=== PATIENT | female | born 1950 | race Caucasian/White ===

== ENCOUNTER → 2020-09-27 16:26 | Outpatient (CLI) | payer MEDICARE, SELFPAY ==
--- NOTE | ~2020-09-27 | XR_ITS ---
XR_[id number]_[id number] 09/27/2020 16:39 Indication: Neck pain Procedure: 4 views cervical spine Comparison: No prior studies for comparison. Findings: Straightening of cervical lordosis. There is disc narrowing through C3-4, C4-5, C5-6 and C6 -7. There is moderate multilevel uncinate and facet hypertrophy. Odontoid process within normal limit s. No prevertebral soft tissue swelling. Impression: 1: Moderate-severe cervical spondylosis. Reviewed, dictated and finalized at location A. EL MAINTENANCE TECHNICIAN Impression: 1: Moderate-severe cervical spondylosis.
== END ==
PROVIDERS: PCP Internal Medicine; Visit Provider Internal Medicine
DX: M47.892 Other spondylosis, cervical region (principal)
CPT/HCPCS: 72040

== ENCOUNTER 2020-10-19 13:39 | Outpatient (CLI) | payer MEDICARE, SELFPAY ==
--- NOTE | ~2020-10-19 | MR_ITS ---
EXAMINATION: MR cervical spine wo con EXAM DATE: 10/19/2020 15:13 INDICATION: Neck pain. Facet arthropathy, cervical; foraminal stenosis of cervical spine. TECHNIQUE: Multi-sequential, multiplanar MR images of the cervical spine were obtained without contra st. Axial T2, axial T2 MERGE sequence. Sagittal T1, T2, T2 fat saturation images also obtained. Th ere is no prior study for comparison. FINDINGS: Mild cervicothoracic dextroscoliosis. There is moderate loss of the disc heights at C4-5, 5-6 and 6-7. There is 2 mm anterolisthesis C7 on T1. The spinal cord signal intensity and intrinsic m orphology is normal. Cervicomedullary junction is normal in appearance. There are no suspicious marro w signal abnormalities. Paraspinal soft tissue is unremarkable. Level by level evaluation: C2-C3: Disc does not extend beyond the endplate margin. Uncovertebral joint arthropathy: None. Facet joint arthropathy: Fused. Neural foraminal stenosis: No stenosis. Central canal stenosis: No stenosis. C3-C4: Disc does not extend beyond the endplate margin. Uncovertebral joint arthropathy: Mild bilateral. Facet joint arthropathy: Moderate bilateral. Neural foraminal stenosis: Mild to moderate left. Central canal stenosis: No stenosis. C4-C5: There is a minimal diffuse disc bulge. Uncovertebral joint arthropathy: Mild to moderate left, mild right. Facet joint arthropathy: Moderate bilateral. Neural foraminal stenosis: Mild left. Central canal stenosis: No stenosis. C5-C6: There is a mild diffuse disc bulge. Uncovertebral joint arthropathy: Moderate to severe left, mild to moderate right. Facet joint arthropathy: Mild to moderate bilateral. Neural foraminal stenosis: Moderate left, mild right. Central canal stenosis: Mild. C6-C7: There is a mild diffuse disc bulge. Uncovertebral joint arthropathy: Moderate to severe bilateral. Facet joint arthropathy: Mild to moderate bilateral. Neural foraminal stenosis: Moderate left, mild right. Central canal stenosis: Mild . C7-T1: There is a mild diffuse disc bulge. Uncovertebral joint arthropathy: Mild. Facet joint arthropathy: Mild to moderate bilateral. Neural foraminal stenosis: Mild left. Central canal stenosis: No stenosis. IMPRESSION: 1. Moderate cervical spondylosis. Reviewed, dictated and finalized at location A. WORKER
== END 2020-10-19 13:40 | disposition home or self-care (01) ==
PROVIDERS: PCP Internal Medicine
DX: M47.812 Spondylosis without myelopathy or radiculopathy, cervical region (principal); M48.02 Spinal stenosis, cervical region; M47.22 Other spondylosis with radiculopathy, cervical region
CPT/HCPCS: 72141

== ENCOUNTER 2021-09-29 10:35 | Outpatient (CLI) | payer MEDICARE, SELFPAY ==
--- NOTE | ~2021-09-29 | CT_ITS ---
EXAMINATION: CT cervical spine wo con DATE: 09/29/2021 10:52 INDICATION: Neck pain. Arthropathy of cervical spine. TECHNIQUE: Computed tomography (CT) of the cervical spine was performed without intravenous contrast. Automated exposure control and iterative reconstruction technique were employed. The dose-length pro duct was 181.68 mGy-cm. COMPARISON: Cervical spine MRI 10/19/2020 FINDINGS: There is 12 degrees dextroscoliosis of cervicothoracic spine. There is kyphosis of cervical spine. There is 2 mm anterolisthesis of C3 on C4, 2 mm retrolisthesis of C6 on C7, and 2 mm anteroli sthesis of C7 on T1. Vertebral body heights are normal. There is moderately decreased disc height at C3-C4, severely decreased disc height from C4-C5 through C6-C7, and mildly decreased disc height at C 7-T1. There is severe osteoarthritis of the facet joints at C1-C2. The following disc levels are spec ifically discussed: C2-C3: There is no uncovertebral joint osteoarthritis. There is ankylosis of the facet joints with mo derate right and mild left hypertrophy. There is no neural foraminal stenosis. There is no central ca nal stenosis. C3-C4: There is mild right and severe left uncovertebral joint osteoarthritis. There is severe bilate ral facet joint osteoarthritis. There is mild right and moderate left neural foraminal stenosis. Ther e is mild central canal stenosis. C4-C5: There is mild right and moderate left uncovertebral joint osteoarthritis. There is severe bila teral facet joint osteoarthritis. There is mild left neural foraminal stenosis. There is no central c anal stenosis. C5-C6: There is severe bilateral uncovertebral joint osteoarthritis. There is moderate right and violette re left facet joint osteoarthritis. There is mild bilateral neural foraminal stenosis. There is mild central canal stenosis. C6-C7: There is severe bilateral uncovertebral joint osteoarthritis. There is mild bilateral facet colin int osteoarthritis. There is mild right and moderate left neural foraminal stenosis. There is mild ce ntral canal stenosis. C7-T1: There is no uncovertebral joint osteoarthritis. There is severe bilateral facet joint osteoart hritis. There is mild bilateral neural foraminal stenosis. There is no central canal stenosis. IMPRESSION: 1. Severe cervical spondylosis, stable from 10/19/2020. 2. Cervicothoracic dextroscoliosis. Reviewed, dictated and finalized at location A. ADMINISTRATOR
== END 2021-09-29 10:36 | disposition home or self-care (01) ==
LOC: ANHIMG 10:37
PROVIDERS: PCP Internal Medicine; Visit Provider Neurological Surgery
DX: M46.92 Unspecified inflammatory spondylopathy, cervical region (principal); M47.812 Spondylosis without myelopathy or radiculopathy, cervical region; M47.813 Spondylosis without myelopathy or radiculopathy, cervicothoracic region; M48.03 Spinal stenosis, cervicothoracic region; M41.9 Scoliosis, unspecified
CPT/HCPCS: 72125

== ENCOUNTER → 2022-01-23 11:10 | Outpatient (CLI) | payer MEDICARE, SELFPAY ==
--- NOTE | ~2022-01-23 | XR_ITS ---
EXAM: XR shoulder RT min 2V HISTORY: M25.511 - Pain in right shoulder COMPARISON: None available FINDINGS: Osteopenia. Amorphous calcific density in the distal superior rotator cuff. Severe narrowi ng and moderate subchondral sclerosis and osteophytosis of the glenohumeral joint. Ovoid ossification projecting over and inferior joint recess. No fracture or dislocation. IMPRESSION: Severe right shoulder glenohumeral osteoarthritis. Large loose joint body in the inferior joint reces s. Calcific rotator cuff tendinitis. Reviewed, dictated and finalized at location K. IMPRESSION: Severe right shoulder glenohumeral osteoarthritis. Large loose joint body in th e inferior joint recess. Calcific rotator cuff tendinitis.
== END ==
PROVIDERS: PCP Internal Medicine; Visit Provider Internal Medicine
DX: M19.011 Primary osteoarthritis, right shoulder (principal)
CPT/HCPCS: 73030

== ENCOUNTER 2022-03-24 12:09 | Outpatient (CLI) | payer MEDICARE, SELFPAY ==
[2022-03-24 13:33] LABS: Vitamin D 25 Hydroxy 48.1 ng/mL
== END 2022-03-24 12:10 | disposition home or self-care (01) ==
LOC: ANHLAB 12:14
PROVIDERS: PCP Internal Medicine
DX: M85.80 Other specified disorders of bone density and structure, unspecified site (principal)
CPT/HCPCS: 36415; 82306

== ENCOUNTER 2025-07-16 12:58 | Outpatient (CLI) | payer MEDICARE, SELFPAY ==
--- NOTE | 2025-07-16 | ECHO_ITS ---
Patient Info Name: Shea Baires Age: 75 years : 1950 Gender: Female Ht: 66 in Wt: 145 lbs BSA: 1.76 m2 HR: 54 bpm BP: 130 / 79 mmHg Technical Quality: Good Exam Date: 07/16/2025 1:35 PM Patient Status: O Admit Date: 07/16/2025 Exam Type: CA echo doppler color flow Complete two-dimensional, color flow and Doppler transthoracic echocardiogram is performed. Right Of Way Appraiser: Ivette Castellon Attending Provider: Carrillo Martínez Summary 1. Complete two-dimensional, color flow and Doppler transthoracic echocardiogram is performed. 2. Left ventricular systolic function is normal, estimated at 60-65. 3. The left ventricular diastolic function is normal. 4. The aortic valve is probable trileaflet. 5. There is mild aortic valve sclerosis. 6. There is mild aortic valve regurgitation. 7. There is no aortic valve stenosis. 8. There is mild tricuspid valve regurgitation. 9. No pulmonary hypertension, estimated pulmonary arterial systolic pressure is 22 mmHg. Left Ventricle Left ventricular chamber dimension is normal. Left ventricular systolic function is normal, estimated at 60-65. There is mildly increased left ventricular wall thickness. Left ventricular septal wall motion is normal. The left ventricular diastolic function is normal. Right Ventricle Right ventricular chamber dimension is normal. Right ventricular systolic function is normal. Left Atria Left atrial chamber dimension is normal. Right Atria Right atrial chamber dimension is normal. Aortic Valve The aortic valve is probable trileaflet. There is mild aortic valve sclerosis. There is no aortic valve stenosis. There is mild aortic valve regurgitation. Pulmonic Valve The pulmonic valve is normal. There is no pulmonic valve stenosis. There is no pulmonic regurgitation. Mitral Valve The mitral valve has normal leaflets. There is no mitral valve stenosis. There is no mitral valve regurgitation. Tricuspid Valve The tricuspid valve leaflets are normal. There is no significant tricuspid valve stenosis. There is mild tricuspid valve regurgitation. No pulmonary hypertension, estimated pulmonary arterial systolic pressure is 22 mmHg. Pericardium/Pleural The pericardium appears normal. There is no pericardial effusion. Inferior Vena Cava Normal inferior vena cava with >50% collapse upon inspiration consistent with normal right atrial pressure, 5 mmHg. Aorta The aortic root size at the sinus of Valsalva is normal. The prox ascending aorta size is normal. Left Ventricular Outflow Tract Name Value Normal LVOT 2D LVOT Diameter 2.0 cm LVOT Doppler LVOT Peak Velocity 136 cm/s LVOT Peak Gradient 7 mmHg LVOT Mean Gradient 3 mmHg LVOT VTI 39 cm LVOT VTI/AV VTI Ratio 1.0 LVOT Stroke Volume 119 ml LVOT CO 7.1 l/min LVOT CI 4.1 l/min/m2 Pulmonic Valve Name Value Normal RVOT Doppler RVOT Peak Velocity 54 cm/s RVOT Peak Gradient 1 mmHg PV Doppler PV Peak Velocity 97 cm/s PV Peak Gradient 4 mmHg Mitral Valve Name Value Normal MV Diastolic Function MV E Peak Velocity 62 cm/s MV A Peak Velocity 73 cm/s MV E/A 0.8 MV Decel Time (PW) 186 ms MV Annular TDI MV E/e' (Septal) 6.2 MV E/e' (Lateral) 10.0 MV E/e' (Average) 8.1 Tricuspid Valve Name Value Normal TV Regurgitation Doppler TR Peak Velocity 203 cm/s TR Peak Gradient 17 mmHg Estimated PAP/RSVP RA Pressure 5 mmHg <=5 PA Systolic Pressure 22 mmHg <36 RV Systolic Pressure 22 mmHg <36 Aortic Valve Name Value Normal AV Doppler AV Peak Velocity 207 cm/s AV Peak Gradient 13 mmHg AV Mean Gradient 6 mmHg AV VTI 38 cm AV Area (Cont Eq VTI) 3.2 cm2 >=3.0 AV Area (Cont Eq Doroteo) 2.0 cm2 AV DI (Doroteo) 0.66 AV Regurgitation 2D LVOT Area 3.1 cm2 Ventricles Name Value Normal LV Dimensions 2D/MM IVS Diastolic Thickness (2D) 1.0 cm 0.6-1.0 LVID Diastole (2D) 3.2 cm 3.8-5.2 LVIW Diastolic Thickness (2D) 1.3 cm 0.6-0.9 LVID Systole (2D) 2.2 cm 2.2-3.5 LVOT Diameter 2.0 cm LV Mass (2D Cubed) 115.39 g 67.00-162.00 LV Mass Index (2D Cubed) 66 g/m2 43-95 Relative Wall Thickness (2D) 0.84 <=0.42 LV Fractional Shortening/Ejection Fraction 2D/MM LV Fractional Shortening (2D) 32 % 27-45 LV EF (2D Teichholz) 62 % LV Diastolic Volume (4C MOD) 90 ml LV EF (4C MOD) 70 % LV Diastolic Volume (2C MOD) 103 ml LV EF (2C MOD) 72 % LV Diastolic Volume (BP MOD) 99 ml 46-106 LV Diastolic Volume Index (BP MOD) 56 ml/m2 29-61 LV Systolic Volume (BP MOD) 31 ml 14-42 LV Systolic Volume Index (BP MOD) 18 ml/m2 8-24 LV EF (BP MOD) 69 % 54-74 LV Diastolic Length (4C) 8.5 cm LV Systolic Length (4C) 7.4 cm LV Stroke Volume (4C MOD) 63 ml Atria Name Value Normal LA Dimensions LA Volume (4C A-L) 29 ml LA Volume (BP A-L) 35 ml RA Dimensions RA Area (4C) 12.5 cm2 <=18.0 Report Signatures
--- OUTSIDE RECORDS SUMMARY | 2025-07-16 13:05 | XMS_ITS ---
Author Organization [facility] Address [address] [place] [address] Care Team Providers Care Automatic Vulcanizing Lead Operator Name Role Phone Ciro Ko MD Unavailable [phone] Carrillo Martínez MD Primary Care Provider Kassie STONE MD, Carlos M. Unavailable [phone] Jigar Fishman MD Unavailable Juan Ocampo Unavailable Elal Zhang MD Unavailable Christen Gonzalez MD PhD Unavailable Active Problems Problem Noted Date Diagnosed Date Encounter for subsequent [facility] wellness visit (AWV) in Medicare patient 05/07/2025 Major depressive disorder, single episode, moder ate 05/07/2025 Pre-op exam 11/05/2024 Numbness of arm 03/17/2024 Rheumatoid arteritis 12/31/2023 Depression, recurrent 12/31/2023 Hypercholesteremia 12/31/2023 Ductal carcinoma in situ of left breast 10/10/20 23 Ductal carcinoma in situ (DCIS) of left breast 1 12/02/2022 Cancer Staging:Pathologic stage from 11/22/2023:Stage Unknown(pTis (DCIS), pNX, cM0, G3, ER+, RI: Not Assessed, HER2: Not Assessed) - Signed by Edwardo Coyne MD on 01/14/2024 Encounter for medical examination to establish c are 06/25/2023 Assessment & Plan (06/25/2023 1:16 PM CDT): A(n) initial Medicare Annual Wellness Visit has been performed today. Shea Baires is not up to date on screening tests. She is in need of hepatitis c screening and Colon cancer screening- mammogram will be needed at the end of the month. She is not up to date on needed preventative vaccinations; She is in need of Influenza and Zoster. We discussed healthy lifestyle habits, educational material has been given. Medications reviewed, changes documented as per the medical record and discussed with patient along with risks vs benefits. Return in 6 months Hypertension 06/25/2023 Overview (06/25/2023): Hypertension Occipital neuralgia of right side 11/23/2021 Spondylosis of cervical joint without myelopathy 11/23/2021 Cervical radiculopathy 11/23/2021 Cervical spinal stenosis 11/23/2021 Mixed stress and urge urinary incontinence 01/21 Urgency of urination 01/21/2021 Hot flashes due to menopause 04/01/2016 Postmenopausal status 01/27/2016 Encounter for preventive health examination 09/14 Osteoporosis Current Treatment and Therapy Plans No current plan information found. Past Treatment and Therapy Plans No past plan information found. Radiation Treatments * Course [id number]_202302/11/2024 - 03/11/2024 Treatment Period Energy Fraction Dose Fractions Total Dose Plans Planned LEFT BREAST 02/11/2024 - 03/11/2024 570 5 / 2,850 Reference Points Delivered LT [id number] 02/11/2024 - 03/11/2024 2,850 Lifetime Dose Tracking * Chemical Lifetime Dose Automatic Entry Manual Entr y Fluoro Time 0.43 minutes 0.43 minutes 0 minutes Air kerma at the reference point (Ka,r) 2.615 mGy 2 .615 mGy 0 mGy
--- OUTSIDE RECORDS SUMMARY | 2025-07-16 13:05 | XMS_ITS | Encounter Summary ---
Author Organization [facility] Health Address [address] [place] [address] Care Team Providers Care Infrastructure Administrator Name Role Phone Arik INGRAM MD, Apolinar Unavailable [phone] Vicente Butts MD Unavailable [phone] Ciro Ko MD Primary Care Provider [phone] Donis Jackson DO Primary Care Provider [phone] Carrillo Martínez MD Primary Care Provider + [phone] Encounter Details Date Type Department Care Team (Late st Contact Info) Description 07/06/2021 [facility] Outpatient Visit EXTERNAL NON-[facility] DEPT Unknown, Provider Social History Tobacco Use Types Packs/Day Years Used Date Smoking Tobacco: Former Cigarettes Smokeless Tobacco: Never Alcohol Use Standard Drinks/Week Comments Yes 0 (1 standard drink = 0.6 oz pur e alcohol) SOCIALLY Comments No Sex and Gender Information Value Date Recorded Sex Assigned at Not on file 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 Answer Date of Assessment Author No 12/06/2015 10:09 AM Marily Monk RN * Is person blind or have serious difficulty seeing? Answer Date of Assessment Author No 12/06/2015 10:09 AM Marily Monk RN * Does person have serious difficulty walking/climbing stairs? Answer Date of Assessment Author No 12/06/2015 10:09 AM Marily Monk RN * Does person have difficulty dressing/bathing? Answer Date of Assessment Author No 12/06/2015 10:09 AM Marily Monk RN * Does person have difficulty doing errands alone? Answer Date of Assessment Author No 12/06/2015 10:09 AM Marily Monk RN documented as of this encounter Mental Status * Does person have difficulty concentrating/remembering/making decisions? Answer Entry Date Author No 12/06/2015 10:09 AM Marily Monk RN documented in this encounter Plan of Treatment Not on file documented as of this encounter Visit Diagnoses Not on filedocumented in this encounter Care Teams Infrastructure Administrator Relationship Specialty Start Date End Date Ciro Ko MD [address] [place] [address] PCP - General Internal Medicine 02/24/21 10/26/22 Donis Jackson DO [facility] [place] [address] PCP - General Family Medicine 10/27/22 12/11/23 Carrillo Martínez MD [address] [facility] [address] [place] [id number] PCP - General Family Medicine 12/12/23 [place] [address] [place] [address] Orthopedic Surgery 05/05/13 [place] [address] [place] [address] Physical Medicine and Rehabilitation 10/06/20 documented as of this encounter
--- OUTSIDE RECORDS SUMMARY | 2025-07-16 13:05 | XMS_ITS | Encounter Summary ---
Author Organization [facility] Health Address [address] [facility] [place] [address] Care Team Providers Care Fruit And Vegetable Inspector Name Role Phone Arik INGRAM MD, Apolinar Unavailable [phone] Vicente Butts MD Unavailable [phone] Ciro Ko MD Primary Care Provider [phone] Donis Jackson DO Primary Care Provider [phone] Carrillo Martínez MD Primary Care Provider + [phone] Encounter Details Date Type Department Care Team (Late st Contact Info) Description 04/13/2021 [facility] Outpatient Visit EXTERNAL NON-[facility] DEPT Unknown, Provider Social History Tobacco Use Types Packs/Day Years Used Date Smoking Tobacco: Former Cigarettes Smokeless Tobacco: Never Alcohol Use Standard Drinks/Week Comments Yes 0 (1 standard drink = 0.6 oz pur e alcohol) SOCIALLY Comments No Sex and Gender Information Value Date Recorded Sex Assigned at Not on file Legal Sex Female 6:39 AM PLANT SAFETY ENGINEER Gender Identity Female 03/30/2021 5:24 PM CDT Sexual Orientation Not on file Occupation Industry Job Start Date Job End Date RETIRED Not on file Not on file Not on file COVID-19 Exposure Response Date Recorded In the last month, have you been in contact with someone who was confirmed or suspected to have Coronavirus / COVID-19? No / Unsure 04/05/2021 11:30 AM CDT documented as of this encounter Functional Status [...] on filedocumented in this encounter Care Teams Fruit And Vegetable Inspector Relationship Specialty Start Date End Date Ciro Ko MD [address] [place] [address] PCP - General Internal Medicine 02/24/21 10/26/22 Donis Jackson DO [address] [place] [id number] PCP - General Family Medicine 10/27/22 12/11/23 Carrillo Martínez MD [address] [facility] [address] [place] [address] PCP - General Family Medicine 12/12/23 [place] [address] [address] [place] [address] Orthopedic Surgery 05/05/13 [place] [address] [place] [address] Physical Medicine and Rehabilitation 10/06/20 documented as of this encounter
--- OUTSIDE RECORDS SUMMARY | 2025-07-16 13:05 | XMS_ITS | Encounter Summary ---
Author Organization [facility] Address [address] [place] [address] Care Team Providers Care Marking Room Supervisor Name Role Phone Arik INGRAM MD, Apolinar Unavailable [phone] Vicente Butts MD Unavailable [phone] Ciro Ko MD Primary Care Provider + [phone] Dnois Jackson DO Primary Care Provider [phone] Carrillo Martínez MD Primary Care Provider + [phone] Encounter Details Date Type Department Care Team (Late st Contact Info) Description 08/05/2021 [facility] Outpatient Visit EXTERNAL NON-[facility] DEPT Unknown, Provider Social History Tobacco Use Types Packs/Day Years Used Date Smoking Tobacco: Former Cigarettes Smokeless Tobacco: Never Alcohol Use Standard Drinks/Week Comments Yes 0 (1 standard drink = 0.6 oz pur e alcohol) SOCIALLY Comments No Sex and Gender Information Value Date Recorded Sex Assigned at Not on file Legal Sex Female 6:39 AM LOCOMOTIVE INSPECTOR Gender Identity Female 03/30/2021 5:24 PM CDT [...] on filedocumented in this encounter Care Teams Marking Room Supervisor Relationship Specialty Start Date End Date Ciro Ko MD [address] [place] [address] PCP - General Internal Medicine 02/24/21 10/26/22 Donis Jackson DO [facility] [place] [address] PCP - General Family Medicine 10/27/22 12/11/23 Carrillo Martínez MD [address] [facility] [address] [place] [phone] PCP - General Family Medicine 12/12/23 [place] [address] [place] [address] Orthopedic Surgery 05/05/13 [place] [address] [place] [address] Physical Medicine and Rehabilitation 10/06/20 documented as of this encounter
--- OUTSIDE RECORDS SUMMARY | 2025-07-16 13:05 | XMS_ITS | Encounter Summary ---
Author Organization [facility] Health Address [address] [facility] [place] [address] Care Team Providers Care Security Messenger Name Role Phone Arik INGRAM MD, Apolinar Unavailable [phone] Vicente Butts MD Unavailable [phone] Ciro Ko MD Primary Care Provider + [phone] Donis Jackson DO Primary Care Provider [phone] Carrillo Martínez MD Primary Care Provider + [phone] Encounter Details Date Type Department Care Team (Late st Contact Info) Description 05/31/2021 [facility] Outpatient Visit EXTERNAL NON-[facility] DEPT Unknown, Provider Social History Tobacco Use Types Packs/Day Years Used Date Smoking Tobacco: Former Cigarettes Smokeless Tobacco: Never Alcohol Use Standard Drinks/Week Comments Yes 0 (1 standard drink = 0.6 oz pur e alcohol) SOCIALLY Comments No Sex and Gender Information Value Date Recorded Sex Assigned at Not on file Legal Sex Female 6:39 AM SOLUTIONS SPECIALIST Gender Identity Female 03/30/2021 5:24 PM CDT [...] on filedocumented in this encounter Care Teams Security Messenger Relationship Specialty Start Date End Date Ciro Ko MD [address] [place] [address] PCP - General Internal Medicine 02/24/21 10/26/22 Donis Jackson DO [facility] [place] [address] PCP - General Family Medicine 10/27/22 12/11/23 Carrillo Martínez MD [address] [facility] [address] [place] [phone] PCP - General Family Medicine 12/12/23 [place] [address] [address] [place] [address] Orthopedic Surgery 05/05/13 [place] [address] [place] [address] Physical Medicine and Rehabilitation 10/06/20 documented as of this encounter
--- OUTSIDE RECORDS SUMMARY | 2025-07-16 13:05 | XMS_ITS | Encounter Summary ---
Author Organization [facility] Address [address] [place] [address] Phone Care Team Providers Care Home Care Aide Name Role Phone Ciro Ko MD Unavailable [phone] Carrillo Martínez MD Primary Care Provider Kassie STONE MD, Carlos M. Unavailable [phone] Jigar Fishman MD Unavailable Juan Ocampo Unavailable [phone] Ella Zhang MD Unavailable Christen Gonzalez MD PhD Unavailable [phone] Encounter Details Date Type Department Care Team (Late st Contact Info) Description 12/12/2023 Orders Only [facility] Scanning, Provider Social History Tobacco Use Types Packs/Day Years Used Date Smoking Tobacco: Former Cigarettes 0.3 4 0 07/14/1997 - 07/14/2001 Passive Smoke Exposure: Past Smokeless Tobacco: Never Alcohol Use Standard Drinks/Week Comments Yes 0 (1 standard drink = 0.6 oz pur e alcohol) Social Connection and Isolation Panel Answer Date Recorded In a typical week, how many times do you talk on the phone with family, friends, or neighbors? Three times a week 08/09/2023 How often do you get togethe r with friends or relatives? Patient declined 08/09/2023 How often do you attend [facility] or yarsani services? Never 08/09/2023 Do you belong to any clubs o r organizations such as congregation groups, unions, fraternal or athletic groups, or school groups? No 08/09/2023 How often do you attend meet ings of the clubs or organizations you belong to? Not asked 08/09/2023 Are you , , di vorced, , never , or living with a partner? 08/09/2023 AUDIT-C Answer Date Recorded Q1: How often do you have a drink containing alcohol? 4 or more times a week 11/22/2023 Q2: How many drinks containi ng alcohol do you have on a typical day when you are drinking? 1 or 2 Q3: How often do you have si x or more drinks on one occasion? Never 11/22/2023 Overall Financial Resource Strain (CARDIA) Answe r Date Recorded How hard is it for you to pa y for the very basics like food, housing, medical care, and heating? Not hard at all 08/09/2023 PHQ-2 Answer Date Recorded Patient Health Questionnaire-2 Score 0 08/09/2023 [facility] - Occupational Stress Questionnaire Answer Date Recorded Do you feel stress - tense, restless, nervous, or anxious, or unable to sleep at night because your mind is troubled all the time - these days? Only a little 08/09/2023 Exercise Vital Sign Answer Date Recorde d On average, how many days pe r week do you engage in moderate to strenuous exercise (like a brisk walk)? 6 days 08/09/2023 On average, how many minutes do you engage in exercise at this level? 60 min 08/09/2023 Hunger Vital Sign Answer Date Recorded Within the past 12 months, y ou worried that your food would run out before you got the money to buy more. Never true 08/09/20 23 Within the past 12 months, t he food you bought just didn't last and you didn't have money to get more. Never true 08/09/2023 PRAPARE - Transportation Answer Date Re corded In the past 12 months, has l ack of transportation kept you from medical appointments or from getting medications? No 07/16 In the past 12 months, has l ack of transportation kept you from meetings, work, or from getting things needed for daily living? No 08/09/2023 Housing Stability Vital Sign Answer Stewart e Recorded In the last 12 months, was t here a time when you were not able to pay the mortgage or rent on time? No 08/09/2023 In the last 12 months, how many places have you lived? 1 08/09/2023 In the last 12 months, was t here a time when you did not have a steady place to sleep or slept in a [place] [facility] (including now)? No 08/09/2023 Personal Safety Answer Date Recorded Have you ever been in or are you currently in a harmful physical or emotional relationship or is someone making you feel afraid or unsafe? 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 Gender Identity Female 09/05/2021 6:53 AM PRECISION JIG GRINDER Sexual Orientation Not on file documented as of this encounter Plan of Treatment Not on file documented as of this encounter Procedures Procedure Name Priority Date/Time Associated Diagnosis Comments SCAN - RADIOLOGY/IMAGING 12/12/2023 documented in this encounter Results * SCAN - RADIOLOGY/IMAGING (12/12/2023) Anatomical Region Laterality Modality Other us Provider Scanning Final Result documented in this encounter Visit Diagnoses Not on filedocumented in this encounter Care Teams Home Care Aide Relationship Specialty Start Date End Date Carrillo Martínez MD [address] [place] [address] PCP - General Family Medicine 06/25/23 Ciro Ko MD [address] [place] [address] Internal Medicine 04/19/18 [place] [address] [address] [place] [address] Consulting Physician Neurology 06/25/23 [place] [address] [facility] [address] [place] [address] Consulting Physician Pain Management 06/25/23 [place] [address] [facility] [address] [place] [address] Physician Cafeteria Associate Physician Cafeteria Associate 09/12/23 Ella Zhang MD [address] [facility] [address] [facility] [address] [place] [address] Consulting Physician Rheumatology 12/31/23 Christen Gonzalez MD PhD [address] [facility] [address] [facility] [address] [place] [address] Radiation Oncologist Radiation Oncology 03/19/24 documented as of this encounter
--- OUTSIDE RECORDS SUMMARY | 2025-07-16 13:05 | XMS_ITS | Encounter Summary ---
Author Organization [facility] Address [address] [facility] [place] [address] Care Team Providers Care Production Assembler Name Role Phone Arik INGRAM MD, Apolinar Unavailable [phone] Vicente Butts MD Unavailable [phone] Ciro Ko MD Primary Care Provider + [phone] Donis Jackson DO Primary Care Provider [phone] Carrillo Martínez MD Primary Care Provider + [phone] Encounter Details Date Type Department Care Team (Late st Contact Info) Description 07/06/2021 [facility] Outpatient Visit EXTERNAL NON-[facility] DEPT Unknown, Provider Social History Tobacco Use Types Packs/Day Years Used Date Smoking Tobacco: Former Cigarettes Smokeless Tobacco: Never Alcohol Use Standard Drinks/Week Comments Yes 0 (1 standard drink = 0.6 oz pur e alcohol) SOCIALLY Comments No Sex and Gender Information Value Date Recorded Sex Assigned at Not on file 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 Gender Identity Female 03/30/2021 5:24 PM CDT [...] on filedocumented in this encounter Care Teams Production Assembler Relationship Specialty Start Date End Date Ciro Ko MD [address] [place] [address] PCP - General Internal Medicine 02/24/21 10/26/22 Donis Jackson DO [facility] [place] [address] PCP - General Family Medicine 10/27/22 12/11/23 Carrillo Martínze MD [address] [facility] [address] [place] [id number] PCP - General Family Medicine 12/12/23 [place] [address] [address] [place] [address] Orthopedic Surgery 05/05/13 [place] [address] [place] [address] Physical Medicine and Rehabilitation 10/06/20 documented as of this encounter
--- OUTSIDE RECORDS SUMMARY | 2025-07-16 13:05 | XMS_ITS | Encounter Summary ---
Author Organization [facility] Address [address] [place] [address] Care Team Providers Care Braid Pattern Setter Name Role Phone Arik INGRAM MD, Apolinar Unavailable [phone] Vicente Butts MD Unavailable [phone] Ciro Ko MD Primary Care Provider + [phone] Donis Jackson DO Primary Care Provider [phone] Carrillo Martínez MD Primary Care Provider + [phone] Encounter Details Date Type Department Care Team (Late st Contact Info) Description 05/04/2021 [facility] Outpatient Visit EXTERNAL NON-[facility] DEPT Unknown, Provider Social History Tobacco Use Types Packs/Day Years Used Date Smoking Tobacco: Former Cigarettes Smokeless Tobacco: Never Alcohol Use Standard Drinks/Week Comments Yes 0 (1 standard drink = 0.6 oz pur e alcohol) SOCIALLY Comments No Sex and Gender Information Value Date Recorded Sex Assigned at Not on file 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 Sex 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 Gender Identity Female 03/30/2021 5:24 PM CDT [...] on filedocumented in this encounter Care Teams Braid Pattern Setter Relationship Specialty Start Date End Date Ciro Ko MD [address] [place] [address] PCP - General Internal Medicine 02/24/21 10/26/22 Donis Jackson DO [address] [place] [phone] PCP - General Family Medicine 10/27/22 12/11/23 Carrillo Martínez MD [address] [facility] [address] [place] [address] PCP - General Family Medicine 12/12/23 [place] [address] [address] [place] [address] Orthopedic Surgery 05/05/13 [place] [address] [address] [place] [address] Physical Medicine and Rehabilitation 10/06/20 documented as of this encounter
--- OUTSIDE RECORDS SUMMARY | 2025-07-16 13:05 | XMS_ITS | Encounter Summary ---
Author Organization [facility] Address [address] [facility] [place] [address] Care Team Providers Care Certification Technician Name Role Phone Unknown, Provider Primary Care Provider Unavaila cristin Elise IV, MD, Apolinar Unavailable [phone] Timbo Esquivel MD Primary Care Provider [phone] Ciro Ko MD Primary Care Provider [phone] Vicente Butts MD Unavailable [phone] Timbo Esquivel MD Primary Care Provider [phone] Ciro Ko MD Primary Care Provider + [phone] Donis Jackson DO Primary Care Provider [phone] Carrillo Martínez MD Primary Care Provider + [phone] Encounter Details Date Type Department Care Team (Late st Contact Info) Description 06/24/2013 Therapy Visit EXTERNAL [place] [place] [address] [address] Social History Tobacco Use Types Packs/Day Years Used Date Smoking Tobacco: Never Assessed Comments Unknown Sex and Gender Information Value Date Recorded Sex Assigned at Not on file 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 Gender Identity Female 03/30/2021 5:24 PM CDT Sexual Orientation Not on file documented as of this encounter Plan of Treatment Not on file documented as of this encounter Visit Diagnoses Not on filedocumented in this encounter Care Teams Certification Technician Relationship Specialty Start Date End Date Unknown, Provider PCP - General 09/16/08 03/03/14 Timbo Esquivel MD [address] [facility] [address] [facility] [address] [place] [address] PCP - General 12/24/19 10/05/20 Ciro Ko MD [address] [place] [address] PCP - General Internal Medicine 10/06/20 02/15/21 Timbo Esquivel MD [address] [facility] [address] [facility] [address] [place] [address] PCP - General 02/16/21 02/23/21 Ciro Ko MD [address] [place] [address] PCP - General Internal Medicine 02/24/21 10/26/22 Donis Jackson DO [address] [place] [phone] PCP - General Family Medicine 10/27/22 12/11/23 Carrillo Martínez MD [address] [facility] [address] [place] [phone] PCP - General Family Medicine 12/12/23 [place] [address] [address] [place] [address] Orthopedic Surgery 05/05/13 [place] [address] [address] [place] [address] Physical Medicine and Rehabilitation 10/06/20 documented as of this encounter
--- OUTSIDE RECORDS SUMMARY | 2025-07-16 13:05 | XMS_ITS | Clinical Summary ---
Author Organization [facility] Address [address] [place] [address] Care Team Providers Care Zoo Director Name Role Phone Ciro Ko MD Unavailable [phone] Carrillo Martínze MD Primary Care Provider Kassie STONE MD, Carlos M. Unavailable [phone] Jigar Fishman MD Unavailable Juan Ocampo Unavailable [phone] Ella Zhang MD Unavailable [phone] Christen Gonzalez MD PhD Unavailable Allergies No known active allergies Medications calcium carbonate (CALCIUM 500 ORAL)Indications:nation pplement Take 1 tablet/caps ule by mouth every morning Active omega-3 fatty acids 500 mg capsuleIndications: supplement Take 1 capsule by mouth every morning Active MILK THISTLE ORALIndications:sup plement Take 1 tablet/caps ule by mouth every morning Active ascorbic acid (VITAMIN C) 1,000 mg tablet Take 1 tablet (1,000 mg total) by mouth Active omeprazole OTC (PriLOSEC OTC) 20 mg EC tabletIndications:S ymptomatic Gastroesophageal Reflux Disease Take 1 tablet (20 mg total) by mouth every morning Active coenzyme Q10 (Co Q-10) 10 mg capsuleIndications: supplement Take 1 capsule (10 mg total) by mouth every morning Active alendronate (FOSAMAX) 70 mg tablet TAKE 1 TABLET (70 MG TOTAL) BY MOUTH EVERY 7 DAYS - TAKE IN THE MORNING WITH A FULL GLASS OF WATER, ON AN EMPTY STOMACH, AND DO NOT TAKE ANYTHING ELSE BY MOUTH OR LIE DOWN FOR THE NEXT 30 MINUTES 12 tablet 3 10/27/19 25 Active lisinopriL (PRINIVIL,ZESTRIL) 30 mg tablet TAKE 1 TABLET BY MOUTH EVERY MORNING 90 tablet 3 12/29/[address] (CYMBALTA) 60 mg capsuleIndications: Depression, recurrent TAKE 1 CAPSULE BY MOUTH EVERY MORNING 90 capsule 3 01/29/20 25 Active traZODone (DESYREL) 100 mg tabletIndications:P rimary insomnia TAKE 1 TABLET BY MOUTH NIGHTLY NEEDED FOR SLEEP 90 tablet 1 04/01/[address] (VOLTAREN) 75 mg EC tablet TAKE 1 TABLET BY MOUTH TWICE A DAY 180 tablet 1 07/03/[address] (VOLTAREN) 75 mg EC tablet TAKE 1 TABLET BY MOUTH TWICE A DAY 200 tablet 04/04/20 25 2024 Discontinued Active Problems Problem Noted Date Diagnosed Date Encounter for subsequent [facility] wellness visit (AWV) in Medicare patient 05/07/2025 Major depressive disorder, single episode, moder ate 05/07/2025 Pre-op exam 11/05/2024 Numbness of arm 03/17/2024 Rheumatoid arteritis 12/31/2023 Depression, recurrent 12/31/2023 Hypercholesteremia 12/31/2023 Ductal carcinoma in situ of left breast 10/10/20 23 Ductal carcinoma in situ (DCIS) of left breast 1 12/02/2022 Cancer Staging:Pathologic stage from 11/22/2023:Stage Unknown(pTis (DCIS), pNX, cM0, G3, ER+, AK: Not Assessed, HER2: Not Assessed) - Signed [...] Encounter for preventive health examination 09/14 Osteoporosis Encounters Date Type Department Care Team Description 07/01/2025 Results Follow-Up [facility] Medical Group Primary Care at [address] [phone] Carrillo Martínez MD Screening Mammogram Bilateral W Darci 06/29/2025 1:14 PM CDT - 06/29/2025 11:59 PM CDT Hospital Encounter [facility] Advanced Medicine Breast Imaging [facility] Advanced Medicine ([facility]) [address] [place] [phone] Screening mammogram for breast cancer Discharge Disposition: Discharge to home or self care 06/22/2025 2:00 PM CDT Therapy [facility] Medicine Physical Therapy [address] [place] [address] Floor [address] [place] [phone] Sneha Francois DPT Pelvic floor dysfunction in female (Primary Dx); Urge incontinence; Bilateral myofascial pain 05/25/2025 1:00 PM CDT Therapy [facility] Medicine Physical Therapy [address] [place] [address] Floor [address] [place] [phone] Sneha Francois DPT Pelvic floor dysfunction in female (Primary Dx); Urge incontinence; Bilateral myofascial pain 05/25/2025 [facility] [address] [place] [address] Floor [address] [place] [phone] 05/15/2025 Orders Only [facility] Medical Group Primary Care at [address] [phone] Carrillo Martínez MD Abnormality of breast on screening mammography (Primary Dx) 05/11/2025 1:20 PM CDT Office Visit [facility] Medicine Radiation Oncology [address] [place] [address] Lulú Sanchez PA Ductal carcinoma in situ (DCIS) of left breast 05/11/2025 Results Follow-Up [facility] Group Primary Care at [address] [phone] Carrillo Martínez MD Lipid panel, Hepatitis B surface antibody (immune status) Blood, Hepatitis B core antibody, total Blood, Additional followed-up results: 2 05/07/2025 2:15 PM CDT Lab [facility] Group Outpatient Lab at [address] [phone] 05/07/2025 2:06 PM CDT - 05/07/2025 11:59 PM CDT Hospital Encounter [facility] [address] [place] [address] Hypercholesteremia; Need for hepatitis B screening test Discharge Disposition: Discharge to home or self care 05/07/2025 1:00 PM CDT Office Visit [facility] Primary Care at [address] [phone] Carrillo Martínez MD Encounter for subsequent annual wellness visit (AWV) in Medicare patient (Primary Dx); Major depressive disorder, single episode, moderate (HCC); Rheumatoid arteritis (HCC); Primary hypertension; Hypercholesteremia; Age-related osteoporosis without current pathological fracture; Need for hepatitis B screening test; Colon cancer screening; Mild aortic stenosis 04/26/2025 Results Follow-Up [facility] Obstetrics and Gynecology [address] [facility] 7th Floor [address] [place] [phone] Matilda Pineda NP Urine culture Urine, in and out catheter, Urinalysis reflex to microscopic 04/23/2025 3:58 PM CDT - 04/23/2025 11:59 PM CDT Hospital Encounter [address] [address] Urge incontinence Discharge Disposition: Discharge to home or self care 04/23/2025 3:00 PM CDT Office Visit [facility] Medicine Obstetrics and Gynecology [address] [place] [address] 7th Floor [address] [place] [address] Matilda Pnieda NP Pelvic floor dysfunction in female (Primary Dx); Urge incontinence; Bilateral myofascial pain 04/20/2025 2:00 PM CDT Office Visit [facility] Obstetrics and Gynecology [address] [place] [address] Floor [address] [place] [address] Laney Perdomo Rai, NP Encounter for well woman exam with routine gynecological exam (Primary Dx) from Last 3 Months Immunizations Immunization Administration Dates Next Due Influenza, Quad, Adjuvantated, Intramuscular ,07/11/2021 Influenza, Quadrivalent, Hig h Dose, Preservative Free, Intrr 06/25/2023,07/02/2020 Influenza, Trivalent, Adjuvanted, Intramuscular 06/13/2024,07/08/2019 Influenza, Trivalent, Preservative Free, Intramu scular 07/24/2018 Pneumococcal Conjugate, Unspecified 07/15/2017 Pneumococcal Polysaccharide PPV23 08/09/2018 Sars-cov-2 Covid-19 Mrna, Bi valent, Original/sienaron Ba.1, A 07/23/2023 Tdap 08/15/2017 ZOSTER LIVE 07/15/2017 ZOSTER Recombinant 12/10/2018 Surgical History Surgery Date Site/Laterality Comments KNEE ARTHROPLASTY 03/15/2008 - 04/13/2008 Right CARPAL TUNNEL RELEASE Right 1990s CYST REMOVAL 10/15/2013 - 10/14/2014 removed from lumbar spine L5 FACET BLOCK CERVICAL THORACIC 1 LEVEL RIGHT 08/21/2022 Right BREAST BIOPSY 02/20/2023 Right fibrocystic (vac assist core bx) SHOULDER SURGERY 12/13/2022 - 01/12/2023 Right Done at [facility] BREAST BIOPSY 08/28/2023 Left atypical cytology (vac assist core bx) COLONOSCOPY KNEE ARTHROPLASTY 09/14/2008 - 10/14/2008 Left MASTECTOMY, PARTIAL 11/22/2023 Left DCIS TUBAL LIGATION ? Medical History Medical History Date Comments Aortic heart murmur Aortic murmu r Hypertension Hypertension Spinal stenosis Spinal stenosis Arthritis Arthritis Other bursal cyst, other site Sy novial cyst of lumbar spine - (Added by TW Conv) Encounter for gynecological examination without abnormal finding Visit for routine [employer] exam - (Added by TW Conv) Rheumatoid arthritis (HCC) Heart disease Arthritis Wears glasses Anxiety Osteoporosis Breast cancer, Left 2023 DCIS Urinary incontinence 2022 History of radiation therapy of breast 2023 left breast cancer Family History Medical History Relation Name Comments Cancer Father Jayden Marie Colon cancer Father Jayden Marie Cancer, colon ; Hypertension Father Jayden Marie Hypertension; Cerebral aneurysm Mother Ivelisse Marie Cereb ral aneurysm; Heart disease Mother Ivelisse Marie Heart dis ease; Stroke Mother Ivelisse Marie Anesthesia problems Neg Hx Relation Name Status Comments Father Jayden Marie Mother Ivelisse Marie Social History Tobacco Use Types Packs/Day Years [...] declined 08/09/2023 How often do you attend [facility] or christian services? Never 08/09/2023 Do you belong to any clubs o r organizations such as samaritan groups, unions, fraternal or athletic groups, or school groups? No 08/09/2023 How often do you attend meet ings of the clubs or organizations you belong to? Not asked 08/09/2023 Are you , , di vorced, , never , or living with a partner? 08/09/2023 AUDIT-C Answer Date Recorded Q1: How often do you have a drink containing alc ohol? 2-3 times a week 04/20/2025 Q2: How many drinks containi ng alcohol do you have on a typical day when you are drinking? 3 or 4 04/20/2025 Q3: How often do you have si x or more drinks on one occasion? Never 04/20/2025 Overall Financial Resource Strain (CARDIA) Answe r Date Recorded How hard is it for you to pa y for the very basics like food, housing, medical care, and heating? Not hard at all 08/09/2023 PHQ-2 Answer Date Recorded PHQ-2 Total Score (If total score is 3 or more points, staff should administer the PHQ-9) 0 05/07/2025 [facility] - Occupational Stress Questionnaire Answer Date Recorded [...] place to sleep or slept in a skilled nursing (including now)? No 08/09/2023 Personal Safety Answer Date Recorded Have you ever been in or are you currently in a harmful physical or emotional relationship or is someone making you feel afraid or unsafe? Denies 11/22/2023 Comments No Sex and Gender Information Value Date Recorded Sex Assigned at Not on file Legal Sex Female 2:19 AM ADVANCE SCOUT Gender Identity Female 09/05/2021 6:53 AM ADVANCE SCOUT Sexual Orientation Not on file Obstetrics History Para Term AB IAB SAB Ectopic Multiple Livin g Live Births 3 3 3 2 3 Date Outcome GA Total Labor Labor/2nd/3rd Weight Sex Type Anes PTL Sangeetha A1 A5 Name Clin 1969 Term M Vag-S pont Living Complications:None 1973 Term M Vag-S pont Complications:None 1976 Term M Vag-S pont Living Complications:None Last Filed Vital Signs Vital Sign Reading Time Taken Comments Blood Pressure 120/84 05/07/2025 1:20 PM CDT Pulse 78 05/07/2025 1:20 PM CDT Temperature 36 C (96.8 F) 05/07/2025 1:20 PM CDT Respiratory Rate 16 05/07/2025 1:20 PM CDT Oxygen Saturation 97% 05/07/2025 1:20 PM CDT Inhaled Oxygen Concentration - - Weight 66.2 kg (146 lb) 06/29/2025 1:30 PM CDT Height 167.6 cm (5' 6) 06/29/2025 1:22 PM CDT Body Mass Index 23.57 06/29/2025 1:22 PM CDT Plan of Treatment Health Maintenance Due Date Last Done Comments Colon Cancer Screening-Colonoscopy 1950 Zoster Vaccine (3 of 3) 02/04/2019 12/10/19 19, 08/08/2017, 07/15/2017 Covid-19 Vaccine (2023-2 5 season) 2025 06/13/2024, 07/23/2023, 07/23/2023, Additional history exists Influenza Vaccine (#1) 2025 , 06/25/2023, 09/04/2022, Additional history exists Osteoporosis Screening-Bone Density Scan 12/12/2025 12/13/2023, 03/01/2022, 09/10/2019, Additional history exists Depression Screening 05/07/2026 05/07/2025, 11/05/2024, 12/31/2023, Additional history exists Fall Risk Assessment 05/07/2026 05/07/2025, 11/05/2024, 12/31/2023, Additional history exists Well Visit 65+ 05/07/2026 05/07/2025, 06/15, 03/03/2021, Additional history exists Breast Cancer Screening-Mammogram 06/29/2026 06/29/2025, 06/06/2024, 08/09/2023, Additional history exists DTaP/Tdap/Td Vaccine (3 - Td or Tdap) 09/12/2027 09/12/2017, 08/15/2017 Pneumococcal vaccine 65+ Completed 018, 08/08/2017, 07/15/2017 Hepatitis C Screening Completed 06/25/2023 Hepatitis B Screening Completed 05/07/2025 Colon Cancer Screening-DNA Stool Discontinued 05/19/20 Colon Cancer Screening-FIT Discontinued 05/19/2025 Medical Devices Implanted Type Area Weasand Trimmer Device Identifier Shelf Expiration Date Model / Serial / Lot [employer] Eviva 13cm Identifier Biopsy Site [id number] - [id number] Implanted:Qty: 1 on 08/28/2023 at [facility] [employer] [id number] 03/25/2024 [facility] / / [id number] [employer] Ghiatas 20ga 20cm 9cm Beaded Needle Breast Wire Localization [id number] - [id number] Implanted:Qty: 1 on 11/22/2023 at [facility] Left: Breast [employer] [id number] / / Procedures Procedure Name Priority Date/Time Associated Diagnosis Comments SCREENING MAMMOGRAM BILATERAL W DARCI Schedule Routine, Read Routine (OP Routine) 06/29/2025 1:37 PM CDT Screening mammogram for breast cancer STOOL DNA COLOGUARD Routine 05/19/2025 8:00 AM CDT Colon cancer screening LIPID PANEL Routine 05/07/2025 2:06 PM CDT Hypercholesteremia HEPATITIS B SURFACE ANTIGEN Routine 05/07/2025 2:06 PM CDT Need for hepatitis B screening test HEPATITIS B CORE ANTIBODY, TOTAL Routine 05/07/2025 2:06 PM CDT Need for hepatitis B screening test HEPATITIS B SURFACE ANTIBODY (IMMUNE STATUS) Routine 05/07/2025 2:06 PM CDT Need for hepatitis B screening test URINALYSIS AND REFLEX TO MICROSCOPIC Routine 04/23/2025 3:58 PM CDT Urge incontinence URINE CULTURE Routine 04/23/2025 3:58 PM CDT Urge incontinence DEXA AXIAL SKELETON BONE DENSITY 1 OR MORE SITES Schedule Routine, Read Routine (OP Routine) 12/13/2023 2:14 PM ADVANCE SCOUT Ductal carcinoma in situ (DCIS) of left breast Asymptomatic menopausal state HEPATITIS C ANTIBODY Routine 06/25/2023 1:58 PM CDT Encounter for hepatitis C screening test for low risk patient from Last 3 Months or Most Recently Relevant to Health Maintenance Results * Screening Mammogram Bilateral W Darci (06/29/2025 1:37 PM CDT) Anatomical Region Laterality Modality Breast Bilateral Mammography Impressions 06/30/2025 1:46 PM CDT Bilateral No evidence of malignancy in either breast. OVERALL BI-RADS FINAL ASSESSMENT: 2 - Benign RECOMMENDATION: Recommend bilateral annual screening mammography. Narrative 06/30/2025 1:46 PM CDT EXAMINATION: Screening Mammogram Bilateral W Darci: 06/29/2025 COMPARISON: Relevant prior studies available at the time of interpretation were reviewed, including the most recent mammogram on: 06/06/2024. TECHNIQUE: Mammography was performed with 2D and 3D digital breast tomosynthesis (DBT) images. CAD was utilized. BREAST PARENCHYMAL COMPOSITION: There are scattered areas of fibroglandular density. FINDINGS: Left 1) Post-Surgical Finding: There are post-surgical findings from a previous lumpectomy with radiation seen in the left breast. There has been no interval development of a suspicious finding. This finding is benign. There is no suspicious mass, calcification, or architectural distortion. Right There is no suspicious mass, calcification, or architectural distortion. Carrillo Martínez MD [facility] Final Result * Stool DNA - Cologuard (05/19/2025 8:00 AM CDT) Stool DNA - Cologuard Negative Negative [facility] (CLIA #:[id number]) Comment: The Cologuard (TM) test was performed on this specimen. NEGATIVE TEST RESULT. A negative Cologuard result indicates a low likelihood that a colorectal cancer (CRC) or advanced adenoma (adenomatous polyps with more advanced pre-malignant features) is present. The chance that a person with a negative Cologuard test has a colorectal cancer is less than 1 in 1500 (negative predictive value >99.9%) or has an advanced adenoma is less than 5.3% (negative predictive value 94.7%). These data are based on a prospective cross-sectional study of 10,000 individuals at average risk for colorectal cancer who were screened with both Cologuard and colonoscopy. (Tori Kim et al, N Engl J Med 2014;370(14):1286- 1297) The normal value (reference range) for this assay is negative. COLOGUARD RE-SCREENING RECOMMENDATION: Periodic colorectal cancer screening is an important part of preventive healthcare for asymptomatic individuals at average risk for colorectal cancer. Following a negative Cologuard result, the [place] [employer] Society and U.S. Multi-Society Task Force screening guidelines recommend a Cologuard re-screening interval of 3 years. References: [place] [employer] Guideline for Colorectal Cancer Screening: https://www.cancer.org/cancer/cdfab-mksliw-nzdpmg/hiilbyjwe-usgrcvuyp-ijqraks/ac s-rec ommendations.html.; Thony HENSLEY, Mesha CR, Cuau[place]emoc REYNAGA, Colorectal Cancer Screening: Recommendations for Physicians and Patients from the U.S. Multi-Society Task Force on Colorectal Cancer Screening , Am J Gastroenterology 2017; 112:5509-9318. TEST DESCRIPTION: Composite algorithmic analysis of stool DNA-biomarkers with hemoglobin immunoassay. Quantitative values of individual biomarkers are not reportable and are not associated with individual biomarker result reference ranges. Cologuard is intended for colorectal cancer screening of adults of either sex, 45 years or older, who are at average-risk for colorectal cancer (CRC). Cologuard has been approved for use by the U.S. FDA. The performance of Cologuard was established in a cross sectional study of average-risk adults aged 50-84. Cologuard performance in patients ages 45 to 49 years was estimated by sub-group analysis of near-age groups. Colonoscopies performed for a positive result may find as the most clinically significant lesion: colorectal cancer [4.0%], advanced adenoma (including sessile serrated polyps greater than or equal to 1cm diameter) [20%] or non- advanced adenoma [31%]; or no colorectal neoplasia [45%]. These estimates are derived from a prospective cross-sectional screening study of 10,000 individuals at average risk for colorectal cancer who were screened with both Cologuard and colonoscopy. (Tori Grant al, N Engl J Med 2014;370(14):6003-6424.) Cologuard may produce a false negative or false positive result (no colorectal cancer or precancerous polyp present at colonoscopy follow up). A negative Cologuard test result does not guarantee the absence of CRC or advanced adenoma (pre-cancer). The current Cologuard screening interval is every 3 years. ([place] [employer] Society and U.S. Multi-Society Task Force). Cologuard performance data in a 10,000 patient pivotal study using colonoscopy as the reference method can be accessed at the following location: [email or web address]/results. Additional description of the Cologuard test process, warnings and precautions can be found at www.[employer].com. Stool 05/19/2025 8:00 AM CDT 05/20/2025 9:17 PM CDT Carrillo Martínez MD LAB BODY FLUIDS AND STOOLS ORDERABLES Final Result [facility] (CLIA #:[id number]) [address] [place] [address] * Hepatitis B core antibody, total Blood (05/07/2025 2:06 PM CDT) [facility] Hep B core IgG/IgM Nonreactive Nonreactive Comment:Testing performed by : [facility], [address] [place]., [address] Blood 05/07/2025 2:06 PM CDT 05/08/2025 9:59 AM CDT Carrillo Martínez MD LAB MICROBIOLOGY - GENERAL ORDERABLES Final Result Performing Organization Address [facility] Co de Phone Number YAHIR HORAN [phone] [address] Department [place] [address] * Hepatitis B surface antibody (immune status) Blood (05/07/2025 2:06 PM CDT) [facility] HBsAb (immune status) Reactive Comment: Interpretive Data Nonreactive: This result is consistent with a lack of immunity to Hepatitis B Virus when used in the setting of routine screening. Equivocal: The immune status of the individual should be further assessed, if appropriate, after consideration of clinical status, risk factors, and additional diagnostic information. Reactive: This result is consistent with immunity to Hepatitis B Virus when used in the setting of routine screening. Current interpretive data was last revised on 19. HBsAb (immune status) index 34.8 mIUnits/m L YAHIR Blood 05/07/2025 2:06 PM CDT 05/07/2025 8:11 PM CDT Carrillo Martínez MD LAB MICROBIOLOGY - GENERAL ORDERABLES Final Result Performing Organization Address City/[facility] Co de Phone Number YAHIR HORAN [id number] [address] Department [place] [employer] [place] [address] * Hepatitis B Surface Antigen Blood (05/07/2025 2:06 PM CDT) HepBsAg Nonreactive Nonreactive Blood 05/07/2025 2:06 PM CDT 05/07/2025 8:11 PM CDT Carrillo Martínez MD LAB MICROBIOLOGY - GENERAL ORDERABLES Final Result YAHIR [address] [place] [address] * (ABNORMAL) Lipid panel (05/07/2025 2:06 PM CDT) Cholesterol 249(H) 30 - 199 mg/dL Comment: Interpretive Data Ages < or = 19 years Acceptable: <170 mg/dL Borderline high: 170-199 mg/dL High: >or= 200 mg/dL Ages > or = 20 years Desirable: <200 mg/dL Borderline high: 200-239 mg/dL High: >or= 240 mg/dL Literature References: 1. Expert Panel on Integrated Guidelines for Cardiovascular Health and Risk Reduction in Children and Adolescents. Pediatrics 2011;128:S213 2. NCEP Expert Panel. Circulation 2004;110:227 Current Interpretive Data was last revised on 2018. Triglycerides 60 <=149 mg/dL YAHIR HORAN Comment: Interpretive Data Ages < or = 9 years Acceptable: <75 mg/dL Borderline high: 75-99 mg/dL High: >or= 100 mg/dL Ages 10 to 20 years Acceptable: <90 mg/dL Borderline high: 90-129 mg/dL High: >or= 130 mg/dL Ages > or = 20 years Desirable: <150 mg/dL Borderline high: 150-199 mg/dL High: 200-499 mg/dL Very high: >or= 499 mg/dL Literature References: 1. Expert Panel on Integrated Guidelines for Cardiovascular Health and Risk Reduction in Children and Adolescents. Pediatrics 2011;128:S213 2. NCEP Expert Panel. Circulation 2004;110:227 Current Interpretive Data was last revised on 2018. HDL 105 >=40 mg/dL YAHIR HORAN Comment: Interpretive Data Ages < or = 19 years Acceptable: >45 mg/dL Borderline low: 40-45 mg/dL Low: <40 mg/dL Ages > or = 20 years Desirable: >or= 60 mg/dL Low: <40 mg/dL Literature References: 1. Expert Panel on Integrated Guidelines for Cardiovascular Health and Risk Reduction in Children and Adolescents. Pediatrics 2011;128:S213 2. NCEP Expert Panel. Circulation 2004;110:227 Current Interpretive Data was last revised on 2018. LDL, calculated 134(H) <=129 mg/dL YAHIR HORAN Comment: Interpretive Data Ages < or = 19 years Acceptable: <110 mg/dL Borderline high: 110-129 mg/dL High: >or= 130 mg/dL Ages > or = 20 years Optimal: <100 mg/dL Near optimal: 100-129 mg/dL Borderline high: 130-159 mg/dL High: >160 mg/dL Calculated using the Justin LDL-C estimating equation. This equation was implemented on 2024. Prior to this date LDL-C was estimated using the Friedewald equation. Literature References: 1. Expert Panel on Integrated Guidelines for Cardiovascular Health and Risk Reduction in Children and Adolescents. Pediatrics 2011;128:S213 2. NCEP Expert Panel. Circulation 2004;110:227 3. Justin Knox et al. ALEJANDRO Cardiol. 2020 February 12;5(5):540-548. doi: 10.1001/[email or web address] Current Interpretive Data was last revised on 2024. Non-HDL Cholesterol 144 mg/dL YAHIR Comment: Interpretive Data Ages < or = 19 years Acceptable: <120 mg/dL Borderline high: 120-144 mg/dL High: >145 mg/dL Ages > or = 20 years When triglycerides are >200 mg/dL, Non-HDL cholesterol is a secondary target of therapy with treatment goals that are 30 mg/dL greater than the LDL cholesterol target. Literature References: 1. Expert Panel on Integrated Guidelines for Cardiovascular Health and Risk Reduction in Children and Adolescents. Pediatrics 2011;128:S213 2. NCEP Expert Panel. Circulation 2004;110:227 Current Interpretive Data was last revised on 2018. Chol/HDL ratio 2 YAHIR Blood 05/07/2025 2:06 PM CDT 05/07/2025 8:11 PM CDT Carrillo Martínez MD LAB BLOOD ORDERABLES Final Result Performing Organization Address [facility] Co de Phone Number YAHIR [address] Department [place] [address] * Urinalysis reflex to microscopic (04/23/2025 3:58 PM CDT) Color, ur Straw Yellow Clarity, ur Clear Clear CERNER [facility] Specific gravity, ur 1.023 1.003 - 1.030 CERNER BJ pH, urine 6.5 [facility] Comment: Interpretive Data U rine pH is affected by diet, medications, systemic acid-base disturbances, and renal tubular function. pH may affect urinary stone formation. For example, urine pH below 6.0 may help reduce the tendency for calcium phosphate stones and pH greater than 6.0 may reduce the tendency for uric acid stone formation. Source: [facility] Location Based [employer] Current Interpretive Data was last revised on 2017 Protein, ur ql Negative Negative [facility] Glucose, ur ql Negative Negative [facility] Ketones, ur Trace Negative [facility] Bilirubin, ur Negative Negative [facility] Blood, ur Negative Negative [facility] Urobilinogen, ur <2.0 <2.0 mg/dL [facility] Nitrite, ur Negative Negative [facility] Leukocyte esterase, ur Negative Negative [facility] UA reflex comment Reflex conditions for microscopic UA not met. [facility] Urine 04/23/2025 3:58 PM CDT 04/23/2025 8:32 PM CDT us Matilda Pineda NP LAB URINE ORDERABLES Final Res ult Performing Organization Address City/[facility]/ZIP Co de Phone Number [facility] Department [place] [address] * Urine culture Urine, in and out catheter (04/23/2025 3:58 PM CDT) Report Final Report: No growth Urine, in and out catheter 04/23/2025 3:58 PM CDT 04/23/2025 9:10 PM CDT Narrative YAHIR MELENDEZ - 04/25/2025 7:19 AM CDT Testing performed by [facility] Microbiology Laboratory ([phone]) us Matilda Pineda NP LAB MICROBIOLOGY - GENERAL ORD ERABLES Final Result YAHIR MELENDEZ [facility] Department [place] [address] * Dexa Axial Skeleton Bone Density 1 or 2 Site (12/13/2023 2:14 PM ADVANCE SCOUT) Anatomical Region Laterality Modality Body N/A Radiographic Tamiko ging Narrative 12/13/2023 3:20 PM ADVANCE SCOUT Patient Name: Shea Baires Date of : 1950 Date of scan: 12/13/2023 Bone mineral density was performed on a HoloInfoVista Discovery Densitometer. Based on machine cross-calibration and precision studies the least significant changes of this densitometer is 0.024 g/cm2 at the spine, 0.020 g/cm2 at the total proximal femur, and 0.014g/cm2 at the forearm. HISTORY: This is a 73 y.o. postmenopausal female with a history of breast cancer and low bone mass. She reports that she quit smoking about 22 years ago. Her smoking use included cigarettes. She started smoking about 26 years ago. She has a 1 pack-year smoking history. She has been exposed to tobacco smoke. She has never used smokeless tobacco. Currently on treatment with calcium and vitamin D. INDICATIONS: Menopause status and history of low bone mass. FINDINGS: BONE MINERAL DENSITY OF THE LUMBAR SPINE Bone Mineral Density (BMD) of the lumbar spine was measured from L1-L4 and the average density was calculated to be 1.066 gm/cm2. This corresponds to a T-score (standard deviations from the mean of young adults) of 0.2. When compared to the previous study of 03/01/2022 there has been no significant changes in bone density. BONE MINERAL DENSITY OF THE PROXIMAL FEMUR Bone Mineral Density (BMD) of the left hip total was found to be 0.772 gm/cm2. This corresponds to a T-score standard deviations from the mean of young adults of -1.4. Femoral neck is 0.682 gm/cm2 with a T-score (standard deviations from the mean of young adults) of -1.5. When compared to the previous study of 03/01/2022 there has been no significant changes in bone density. BONE MINERAL DENSITY OF THE FOREARM Bone Mineral density (BMD) of the left proximal 1/3 of the radius measures 0.547 gm/cm2. This corresponds to a T-score (standard deviations from the mean of young adults) of -2.5. When compared to the previous study of 03/01/2022 there has been no significant changes in bone density. A forearm bone density study was performed in addition to the routine study because of severe degenerative disease and severe scoliosis. SUMMARY: Bone mineral density shows evidence of osteoporosis and marked increase risk of fracture. There has been no significant changes in bone density since previous measurement. ADDITIONAL COMMENTS: Postmenopausal Women and Men Over 50: Diagnostic criteria: Osteoporosis: BMD at or below -2.5 T-score; Osteopenia (low bone mass): BMD between -1.0 and -2.5 T-score. If the patient has a history of a fragility fracture, a fracture that occurred with trauma equivalent to a fall from a standing position or less, then the diagnosis is osteoporosis regardless of bone density. The history and data sections of the bone mineral density scan were prepared by Nathaly oJlley(Pina) JIMMY who is accredited by the International Society of Clinical Densitometry. The overall patient assessment and scan interpretation were performed by Hermelinda Warner MD who is certified by the International Society of Clinical Densitometry. [id number] Farrah Valencia MD PhD IMG DXA PROCEDURES Final R esult * Hepatitis C antibody Blood (06/25/2023 1:58 PM CDT) Hep C Ab Nonreactive Nonreactive Comment: Interpretive Data Nonreactive: Antibodies to HCV not detected. Does NOT exclude the possibility of recent exposure to HCV. Equivocal: Equivocal for HCV antibodies. Supplemental molecular testing will be automatically performed to determine infection status in accordance with current CDC screening recommendations. Reactive: Positive for HCV antibodies. This may represent current or past HCV infection. Supplemental molecular testing will be automatically performed to determine current infection status in accordance with current CDC screening recommendations. Interpretive data was last revised on 2019. Blood 06/25/2023 1:58 PM CDT 06/25/2023 11:23 PM CDT Carrillo Martínez MD LAB MICROBIOLOGY - GENERAL ORDERABLES Final Result Performing Organization Address City/State/[facility] Number [place] [address] [facility] Department [place] [address] from Last 3 Months or Most Recently Relevant to Health Maintenance Insurance [facility] AETNA MEDICARE Care Teams Zoo Director Relationship Specialty Start Date End Date Carrillo Martínez MD [address] [facility] [address] [place] [address] PCP - General Family Medicine 06/25/23 Ciro Ko MD [address] [place] [address] Internal Medicine 04/19/18 [place] [address] [address] [facility] [address] [place] [address] Consulting Physician Neurology 06/25/23 [place] [address] [address] [facility] [address] [place] [address] Consulting Physician Pain Management 06/25/23 [place] [address] [address] [facility] [address] [place] [address] Physician Pneumatic Tool Operator Physician Pneumatic Tool Operator 09/12/23 Ella Zhang MD [address] [place] [address] Consulting Physician Rheumatology 12/31/23 Christen Gonzalez MD PhD [address] [facility] [address] [place] [address] Radiation Oncologist Radiation Oncology 03/19/24
--- OUTSIDE RECORDS SUMMARY | 2025-07-16 13:05 | XMS_ITS | Encounter Summary ---
Author Organization [facility] Address [address] [place] [address] Phone Care Team Providers Care Couture Alterations Dressmaker Name Role Phone Ciro Ko MD Unavailable [phone] Carrillo Martínez MD Primary Care Provider Kassie STONE MD, Carlos M. Unavailable [phone] Jigar Fishman MD Unavailable Juan Ocampo Unavailable [phone] Ella Zhang MD Unavailable Christen Gonzalez MD PhD Unavailable [phone] Encounter Details Date Type Department Care Team (Late st Contact Info) Description 02/12/2024 Orders Only [facility] Scanning, Provider [...] declined 08/09/2023 How often do you attend [facility] or jain services? Never 08/09/2023 Do you belong to any clubs o r organizations such as jehovah's witness groups, unions, fraternal or athletic groups, or [...] points, staff should administer the PHQ-9) 0 12/31/2023 [facility] - Occupational Stress [...] place to sleep or slept in a assisted (including now)? No 08/09/2023 Personal Safety Answer Date Recorded Have you ever been in or are you currently in a harmful physical or emotional relationship or is someone making you feel afraid or unsafe? Denies 11/22/2023 Comments No Sex and Gender Information Value Date Recorded Sex Assigned at Not on file Legal Sex Female 2:19 AM ENVIRONMENTAL STUDIES PROFESSOR Gender Identity Female 09/05/2021 6:53 AM ENVIRONMENTAL STUDIES PROFESSOR Sexual Orientation Not on file documented as of this encounter Plan of Treatment Not on file documented as of this encounter Procedures Procedure Name Priority Date/Time Associated Diagnosis Comments SCAN - RADIOLOGY/IMAGING 02/12/2024 documented in this encounter Results * SCAN - RADIOLOGY/IMAGING (02/12/2024) Anatomical Region Laterality Modality Other us Provider Scanning Final Result documented in this encounter Visit Diagnoses Not on filedocumented in this encounter Care Teams Couture Alterations Dressmaker Relationship Specialty Start Date End Date Carrillo Martínez MD [address] [place] [address] PCP - General Family Medicine 06/25/23 Ciro Ko MD [address] [place] [address] Internal Medicine 04/19/18 [place] [address] [place] [address] Consulting Physician Neurology 06/25/23 [place] [address] [address] [place] [address] Consulting Physician Pain Management 06/25/23 [place] [address] [address] [facility] [address] [place] [address] Physician Medical Staff Physician Physician Medical Staff Physician 09/12/23 Ella Zhang MD [address] [place], [place] [id number] Consulting Physician Rheumatology 12/31/23 Christen Gonzalez MD PhD [address] [facility] [address] [place], [place] [id number] Radiation Oncologist Radiation Oncology 03/19/24 documented as of this encounter
--- OUTSIDE RECORDS SUMMARY | 2025-07-16 13:06 | XMS_ITS | Clinical Summary ---
Author Organization [facility] Address [address] [place] [address] Care Team Providers Care Microfilm Camera Operator Name Role Phone Arik INGRAM MD, Apolinar Unavailable [phone] Vicente Butts MD Unavailable [phone] Carrillo Martínez MD Primary Care Provider [phone] Source Comments [facility],non-owned Affiliates and Associated Physician Practices is amultiple site organization consisting of ambulatory clinics and hospital sitesin [place], [place], [place] and [place]. This disclosure is being madepursuant to the Care Everywhere program and may not contain all information available regarding this patient. Last updated 18.[facility] Allergies No known active allergies Medications * Be aware that medications may not be up to date on this document. Alwaysverify current medications with the patient. vitamin C (ASCORBIC ACID) 1000 MG tablet Take 1 (one) tablet by mouth once daily Active [place]-3 Fatty Acids (FISH OIL) 1200 MG Take by mouth once daily Active Milk Thistle 250 MG Take by mouth once daily Active CALCIUM PO 1 Active Multiple Vitamins-Mineral s (CENTRUM SILVER PO) Active lisinopril (Prinivil; Zestril) 30 MG tablet Take 1 (one) tablet by mouth once daily 2 Active gabapentin (Neurontin) 600 MG tablet Take 1 (one) tablet by mouth 4 times daily 3 Active DULoxetine (Cymbalta) 60 MG capsule Take 1 (one) capsule by mouth two times daily at 4am and 4pm 3 Active Omeprazole Magnesium (PRILOSEC PO) Active oxyCODONE, immediate release, (Roxicodone) 5 MG tabletIndication s:Status post reverse total replacement of right shoulder Take 1 (one) tablet to 2 (two) tablets by mouth every 6 hours as needed for Pain 42 tablet 3 Active Additional Information Patient not taking.Reason: Patient adjusted, Reported on 03/26/2025 amitriptyline (Elavil) 25 MG tablet TAKE 1 TABLET BY MOUTH AT BEDTIME FOR ONE WEEK, THEN INCREASE TO 2 TABS AT BEDTIME 3 Active aspirin (Aspirin) 81 MG chew tablet 3 Active acetaminophen-co deine (Tylenol #4) 300-60 MG tablet Take 1 (one) tablet by mouth every 4 hours as needed pain 3 Active anastrozole (Arimidex) 1 MG tablet Take 1 (one) tablet by mouth once daily 30 tablet 2 4 Active Coenzyme Q10 10 MG Take 10 mg by mouth every morning Active Multiple Vitamin (Multi-Vitamin) TABS Take 1 (one) tablet by mouth every morning Active tiZANidine HCl 4 MG Take 4 mg by mouth 3 times daily as needed 4 Active alendronate (Fosamax) 70 MG tablet Take 1 (one) tablet by mouth every 7 days 4 tablet 11 4 Active celecoxib (CeleBREX) 200 MG capsuleIndicatio ns:Arthritis,Ost eoarthritis,Rheu matoid Arthritis Take 1 (one) capsule by mouth 2 times daily as needed with food Reasons: Arthritis, Joint Damage causing Pain and Loss of Function, Rheumatoid Arthritis 60 capsule 1 4 Active Additional Information Patient not taking.Reason: Patient adjusted, Reported on 03/26/2025 diclofenac sodium EC (Voltaren) 75 MG tabletIndication s:Foot pain, bilateral,Arthri tis of midfoot, unspecified laterality,Hallu x valgus with bunions of right foot,Cocked-up toe, unspecified laterality,Overr iding toe, unspecified laterality,Hamme r toes of both feet,Hallux malleus of left foot TAKE 1 TABLET BY MOUTH 2 TIMES DAILY FOR 30 DAYS RHEUMATOID ARTHRITIS. 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 Depression, recurrent 12/31/2023 Hypercholesteremia 12/31/2023 Ductal carcinoma in situ (DCIS) of left breast 1 12/02/2022 02/12/2024 Hypertension 06/25/2023 02/12/2024 Overview (02/12/2024): Hypertension Cervical spinal stenosis 11/23/2021 024 Spondylosis of cervical joint without myelopathy 11/23/2021 12/12/2023 Family History Medical History Relation Name Comments Arthritis - Rheumatoid Father Cancer Father Hypertension Father Arthritis - Rheumatoid Mother CAD (Coronary Artery Disease) Mother Hypertension Mother Stroke Mother Arthritis - Rheumatoid Sister 2 Arthritis - Osteo Sister 3 Relation Name Status Comments Brother Alive Child Father Mother Sister 1 Alive Sister 2 Sister 3 Social History Tobacco Use Types Packs/Day Years Used Date Smoking Tobacco: Former Cigarettes Smokeless Tobacco: Never Tobacco Cessation:Counseling Given: Not Answered Alcohol Use Standard Drinks/Week Comments Yes 7 (1 standard drink = 0.6 oz pur e alcohol) PHQ-2 Answer Date Recorded Patient Health Questionnaire-2 Score 0 10/30/2024 Comments No Sex and Gender Information Value Date Recorded Sex Assigned at Not on file Legal Sex Female 6:39 AM LICENSED PHYSICAL THERAPIST Gender Identity Female 03/30/2021 5:24 PM CDT Sexual Orientation Not on file Occupation Industry Job Start Date Job End Date RETIRED Not on file Not on file Not on file Last Filed Vital Signs Vital Sign Reading Time Taken Comments Blood Pressure 126/72 03/26/2025 10:24 AM CDT Pulse 74 03/26/2025 10:24 AM CDT Temperature 36.1 C (96.9 F) 11/14/2024 11:55 AM LICENSED PHYSICAL THERAPIST Respiratory Rate 16 11/14/2024 12:25 PM LICENSED PHYSICAL THERAPIST Oxygen Saturation 97% 03/26/2025 10:24 AM CDT Inhaled Oxygen Concentration - - Weight 72.1 kg (159 lb) 03/26/2025 10:24 AM CDT Height 167.6 cm (5' 6) 03/26/2025 10:24 AM CDT Body Mass Index 25.66 03/26/2025 10:24 AM CDT Plan of Treatment Health Maintenance Due Date Last Done Comments COLOGUARD (AGES 45-75) - COLON CA SCREENING 1950 COLON MONITORING 1950 COLONOSCOPY - COLON CA SCREENING 1950 CT COLONOGRAPHY - COLON CA SCREENING 1950 Colorectal Cancer Screening 1950 FIT - COLON CA SCREENING 1950 FLEX SIG - COLON CA SCREENING 1950 LIPID TESTING 1950 HEPATITIS C SCREENING 12/27/1968 DTAP/TDAP/TD VACCINES (1 - Tdap) 1970 PNEUMOCOCCAL VACCINE 50+ (1 of 1 - PCV) 2001 ZOSTER VACCINE (1 of 2) 2001 MEDICARE AWV CALENDAR YEAR 2024 COVID-19 VACCINE (1 - 2023- season) 2025 INFLUENZA VACCINE (#1) 2025 , 07/02/2020, 07/08/2019, Additional history exists Respiratory Syncytial Virus (RSV) Vaccine Pt: or over 60 yrs (1 - 1-dose 75+ series) 2026 MAMMOGRAM 06/06/2026 06/06/2024, 08/15, 08/09/2023, Additional history exists BONE DENSITY TESTING Completed 12/13/2023, 03/01/2022, 09/10/2019, Additional history exists DEPRESSION SCREENING Completed 10/30/2024 HEPATITIS B VACCINE Aged Out No longe r eligible based on patient's age to complete this topic HIB VACCINE Aged Out No longer eligi ble based on patient's age to complete this topic HPV VACCINE Aged Out No longer eligi ble based on patient's age to complete this topic MENINGOCOCCAL (Group B) VACCINE SHARED DECISION-MAKING Aged Out No longer eligible based on patient's age to complete this topic MENINGOCOCCAL GROUPS A/C/Y/W VACCINE Aged Out No longer eligible based on patient's age to complete this topic Medical Devices Implanted Type Area Manager Strategy & Account Device Identifier Shelf Expiration Date Model / Serial / Lot Bsplt Glnd Cmprh 25 Mm Mini Shldr Tpr Ad Implanted:Qty: 1 on 12/29/2022 by Janiya Pollack MD at [facility] Prosthesis Right: Shoulder [employer] 12/11/2032 [id number] / / [id number] Cmpnt Glnd 36mm Std Glenosphere Clr Cd Implanted:Qty: 1 on 12/29/2022 by Janiya Pollack MD at [facility] Prosthesis Right: Shoulder [employer] 09/21/2032 [id number] / / [id number] Brng Hum 36mm Cmprh +3mm Shldr Vivacit-E Implanted:Qty: 1 on 12/29/2022 by Janiya Pollack MD at [facility] Prosthesis Right: Shoulder [employer] 04/13/2024 [id number] / / [id number] Screw 4.75mm 15mm 3.5mm Lck Fx Ang Hex Implanted:Qty: 1 on 12/29/2022 by Janiya Pollack MD at [facility] Screw Right: Shoulder [employer] 09/25/2032 [id number] / / [id number] Screw 4.75mm 15mm 3.5mm Lck Fx Ang Hex Implanted:Qty: 1 on 12/29/2022 by Janiya Pollack MD at [facility] Screw Right: Shoulder [employer] 05/05/2032 [id number] / / [id number] Screw 4.75mm 15mm 3.5mm Lck Fx Ang Hex Implanted:Qty: 1 on 12/29/2022 by Janiya Pollack MD at [facility] Screw Right: Shoulder [employer] 08/05/2032 [id number] / / [id number] Screw 4.75mm 30mm 3.5mm Lck Fx Ang Hex Implanted:Qty: 1 on 12/29/2022 by Janiya Pollack MD at [facility] Screw Right: Shoulder [employer] 06/26/2032 [id number] / / [id number] Screw 6.5mm 30mm 3.5mm Cntr Hex Shldr Implanted:Qty: 1 on 12/29/2022 by Janiya Pollack MD at [facility] Screw Right: Shoulder [employer] 08/19/2032 [id number] / / [id number] Tray Hum Cmprh +6mm Std Shldr Rvrs Implanted:Qty: 1 on 12/29/2022 by Janiya Pollack MD at [facility] Right: Shoulder [employer] 11/15/2032 [id number] / / [id number] Stem Hum W/Align Tpr 45deg 11mm X 140mm Implanted:Qty: 1 on 12/29/2022 by Janiya Pollack MD at [facility] Right: Shoulder [employer] 07/02/2032 [id number] / / [id number] Mtrx Tissue Viaflow [facility] 2cc - [id number] Implanted:Qty: 1 on 11/14/2024 by Christen Hernandez DPM at [facility] Right: Foot [employer] 03/24/2029 [id number] / [id number] / Explanted Type Area Manager Strategy & Account Device Identifier Shelf Expiration Date Model / Serial / Lot Pin Fx 9in 3.2mm Stnm Explanted:Qty: 1 on 12/29/2022 at [facility] [employer] 11/09/2032 [id number] / / [id number] [place] [address] AETNA MEDICARE ADV [facility] MANAGED MEDICARE ADV [facility] MANAGED MEDICARE ADV [facility] MANAGED MEDICARE ADV [facility] MANAGED MEDICARE ADV [facility] MANAGED MEDICARE ADV Advance Directives * Full Code (Latest Code Status on File) Date Activated Date Inactivated Comments 12/06/2015 4:37 PM 12/06/2015 6:36 PM Care Teams Microfilm Camera Operator Relationship Specialty Start Date End Date Carrillo Martínez MD [address] [facility] [address] [place] [id number] PCP - General Family Medicine 12/12/23 [place] [address] [place], [place] [id number] Orthopedic Surgery 05/05/13 [place] [address] [place] [address] Physical Medicine and Rehabilitation 10/06/20
--- OUTSIDE RECORDS SUMMARY | 2025-07-16 13:06 | XMS_ITS | Encounter Summary ---
Author Organization [facility] Address [address] [place] [address] Care Team Providers Care Data Abstractor Name Role Phone Ciro Ko MD Unavailable [phone] Carrillo Martínez MD Primary Care Provider Kassie STONE MD, Carlos M. Unavailable [phone] Jigar Fishman MD Unavailable Juan Ocampo Unavailable Ella Zhang MD Unavailable Christen Gonzalez MD PhD Unavailable [phone] Reason for Referral * Diagnostic Imaging (Routine) - Authorized Specialty Diagnoses / Procedures Referred By Contac t Referred To Contact Diagnoses Breast cancer screening by mammogram Procedures SCREENING MAMMOGRAM BILATERAL W DARCI Carrillo Martínez MD [address] [place] [address] Phone: tel: fax: [facility] Referral ID Status Reason Start Date Expiration Date V isits Requested Visits Authorized [id number] Authorized 07/01/2025 07/31/2026 1 1 Encounter Details Date Type Department Care Team (Late st Contact Info) Description 07/01/2025 Results Follow-Up [facility] Primary Care at [address] [address] Carrillo Martínez MD [address] [place] [address] Screening Mammogram Bilateral W Darci Social History Tobacco Use Types Packs/Day Years [...] declined 08/09/2023 How often do you attend chur ch or zoroastrianism services? Never 08/09/2023 Do you belong to any clubs o r organizations such as baptist groups, unions, fraternal or athletic groups, or [...] staff should administer the PHQ-9) 0 05/07/2025 [facility] of Occupat ional Health - Occupational Stress [...] place to sleep or slept in a mcfp (including now)? No 08/09/2023 Personal Safety Answer Date Recorded Have you ever been in or are you currently in a harmful physical or emotional relationship or is someone making you feel afraid or unsafe? Denies 11/22/2023 Comments No Sex and Gender Information Value Date Recorded Sex Assigned at Not on file Legal Sex Female 2:19 AM SEAL SKINNER Gender Identity Female 09/05/2021 6:53 AM SEAL SKINNER Sexual Orientation Not on file documented as of this encounter Plan of Treatment Scheduled Orders Name Type Priority Associated Diagnoses Orde r Schedule SCREENING MAMMOGRAM BILATERAL W DARCI Imaging Schedule Routine, Read Routine (OP Routine) Breast cancer screening by mammogram Expected: 07/01/2026, Expires: 09/29/2026 documented as of this encounter Visit Diagnoses Diagnosis Breast cancer screening by mammogram- Primary documented in this encounter Care Teams Data Abstractor Relationship Specialty Start Date End Date Carrillo Matrínez MD [address] [place], [place] [phone] PCP - General Family Medicine 06/25/23 Ciro Ko MD [address] [place] [address] Internal Medicine 04/19/18 [place] [address] [address] [place] [address] Consulting Physician Neurology 06/25/23 [place] [address] [place] [address] Consulting Physician Pain Management 06/25/23 [place] [address] [facility] [address] [place] [address] Physician Network Relay Tester Physician Network Relay Tester 09/12/23 Ella Zhang MD [address] [place] [address] Consulting Physician Rheumatology 12/31/23 Christen Gonzalez MD PhD [address] [facility] [address] [place], [place] [id number] Radiation Oncologist Radiation Oncology 03/19/24 documented as of this encounter
--- OUTSIDE RECORDS SUMMARY | 2025-07-16 13:06 | XMS_ITS ---
Author Organization 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 Past Treatment and Therapy Plans No past plan information found. Lifetime Dose Tracking * Chemical Lifetime Dose Automatic Entry Manual Entr y Dose Length Product 1.79 mGy-cm 1.79 mGy-cm 0 mGy-cm
--- OUTSIDE RECORDS SUMMARY | 2025-07-16 13:06 | XMS_ITS | Encounter Summary ---
Author Organization [facility] Address [address] [facility] [place] [address] Care Team Providers Care Shearing Machine Tender Name Role Phone Arik INGRAM MD, Apolinar Unavailable [phone] Timbo Esquivel MD Primary Care Provider [phone] Ciro Ko MD Primary Care Provider [phone] Vicente Butts MD Unavailable [phone] Timbo Esquivel MD Primary Care Provider [phone] Ciro Ko MD Primary Care Provider [phone] Donis Jackson DO Primary Care Provider [phone] Carrillo Martínez MD Primary Care Provider + [phone] Encounter Details Date Type Department Care Team (Late st Contact Info) Description 12/24/2019 Lab Requisition [facility] Care DermPath Lab [address] [facility] [place] [phone] Asael Garcia MD [address] [place] [address] Social History Tobacco Use Types Packs/Day Years Used Date Smoking Tobacco: Former Cigarettes Alcohol Use Standard Drinks/Week Comments Yes 0 (1 standard drink = 0.6 oz pur e alcohol) SOCIALLY Comments No Sex and Gender Information Value Date Recorded Sex Assigned at Not on file 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 DermPath Lab Received: 12/24/2019 09:15 AM Pathologist: Abilio Plummer MD Specimen: Skin, mid back 0 2:44 PM CDT DERMATOPATHOLOGY LABORATORY Final Diagnosis Specimen A. SKIN, mid back: BASAL CELL CARCINOMA, SUPERFICIAL MULTIFOCAL (C44.519) 0 2:44 PM CDT DERMATOPATHOLOGY LABORATORY at 1444 CDT Clinical History BCCA. Path # [id number]. 0 2:44 PM CDT DERMATOPATHOLOGY LABORATORY Gross Description Specimen A: Received is one formalin filled container labeled with the patient's name and designated mid back. The specimen consists of a shave biopsy measuring 7b0p9ht. Jar 0. 0 2:44 PM CDT DERMATOPATHOLOGY LABORATORY Microscopic Description Specimen A. SKIN, mid back: Attached to the undersurface of the epidermis, there are small aggregates of basaloid cells with a high nuclear to cytoplasmic ratio and peripheral palisading. 0 2:44 PM CDT DERMATOPATHOLOGY LABORATORY Disclaimer An external and internal positive and negative controls are appropriate for the histochemical, immunohistochemical and immunofluorescence stain(s) in this case (if any), except where stated explicitly. The performance characteristics of the stain(s) cited in this report were developed and its performance characteristic determined by the Dermatopathology Laboratory at [facility], directed by Dr. Deirdre Plummer. These tests need not be, and therefore are not, approved by the [place] Food and Drug Administration. The tests are used for clinical purposes. Billing Codes Specimen Charges Stain Charges 33080 1 0 2:44 PM CDT DERMATOPATHOLOGY LABORATORY Embedded Images 0 2:44 PM CDT DERMATOPATHOLOGY LABORATORY Pathology/Cytolog y TISSUE SPECIMEN FROM SKIN / Unknown 12/22/2019 12/24/2019 9:15 AM CDT Asael Garcia MD LAB - PATHOLOGY/CYTOLOGY ORDER JACQUELINE Final Result DERMATOPATHOLOGY LABORATORY [facility] - Department of Dermatology [address] [place] [address], 5th Floor Lab [address] [place], [place] [phone] [place] [address] documented in this encounter Visit Diagnoses Not on filedocumented in this encounter Care Teams Shearing Machine Tender Relationship Specialty Start Date End Date Timbo Esquivel MD [address] [place] [address] PCP - General 12/24/19 10/05/20 Ciro Ko MD [address] [place] [address] PCP - General Internal Medicine 10/06/20 02/15/21 Timbo Esquivel MD [address] [facility] [address] [place] [address] PCP - General 02/16/21 02/23/21 Ciro Ko MD [address] [place] [address] PCP - General Internal Medicine 02/24/21 10/26/22 Donis Jackson DO [address] [place] [address] PCP - General Family Medicine 10/27/22 12/11/23 Carrillo Martínez MD 2 [facility] [address] [place] [address] PCP - General Family Medicine 12/12/23 [place] [address] [place] [address] Orthopedic Surgery 05/05/13 [place] [address] [place] [address] Physical Medicine and Rehabilitation 10/06/20 documented as of this encounter
--- OUTSIDE RECORDS SUMMARY | 2025-07-16 13:06 | XMS_ITS | Encounter Summary ---
Author Organization [facility] Address [address] [place] [address] Care Team Providers Care Electrophysiologist Name Role Phone Arik INGRAM MD, Apolinar Unavailable [phone] Timbo Esquivel MD Primary Care Provider [phone] Ciro Ko MD Primary Care Provider [phone] Vicente Butts MD Unavailable [phone] Timbo Esquivel MD Primary Care Provider [phone] Ciro Ko MD Primary Care Provider + [phone] Donis Jackson DO Primary Care Provider [phone] Carrillo Martínez MD Primary Care Provider + [phone] Encounter Details Date Type Department Care Team (Late st Contact Info) Description 08/19/[address] [facility] Care DermPath Lab [address] [facility] [place] [phone] Asael Garcia MD [address] [place] [address] Social History Tobacco Use Types Packs/Day Years Used Date Smoking Tobacco: Former Cigarettes Alcohol Use Standard Drinks/Week Comments Yes 0 (1 standard drink = 0.6 oz pur e alcohol) SOCIALLY Comments No Sex and Gender Information Value Date Recorded Sex Assigned at Not on file Legal Sex Female 6:39 AM PARAPROFESSIONAL AIDE Gender Identity Female 03/30/2021 5:24 PM CDT [...] Priority Date/Time Associated Diagnosis Comments DERMATOPATHOLOGY Routine 08/17/2020 12:0 0 AM PARAPROFESSIONAL AIDE documented in this encounter Results * DERMATOPATHOLOGY (08/17/2020 12:00 AM PARAPROFESSIONAL AIDE) Case Report Dermatopathology Report Case: [id number] Authorizing Provider: Asael Garcia MD Collected: 08/17/2020 12:00 AM Ordering Location: [facility] DermPath Lab Received: 08/19/2020 06:34 AM Pathologist: Yessi Chau MD Specimens: A) - Skin, right upper thigh B) - Skin, right axilla 0 2:50 PM PARAPROFESSIONAL AIDE DERMATOPATHOLOGY LABORATORY Final Diagnosis Specimen A. SKIN, right upper thigh: LICHEN PLANUS-LIKE KERATOSIS (BENIGN LICHENOID KERATOSIS) (L82.1) Specimen B. SKIN, right axilla: BASAL CELL CARCINOMA, NODULAR TYPE (C44.519) 0 2:50 PM PARAPROFESSIONAL AIDE DERMATOPATHOLOGY LABORATORY at 1450 PARAPROFESSIONAL AIDE Clinical History A: BCC vs SCCA. Path # [id number]. B: BCC vs SCCA. Path # [id number]. 0 2:50 PM [facility] DERMATOPATHOLOGY LABORATORY Gross Description Specimen A: Received is one formalin filled container labeled with the patient's name and designated right upper thigh. The specimen consists of a shave biopsy measuring 8w4c6mu. Jar 0. Specimen B: Received is one formalin filled container labeled with the patient's name and designated right axilla. The specimen consists of a shave biopsy measuring 0t0o1qw. Jar 0. 0 2:50 PM [facility] DERMATOPATHOLOGY LABORATORY Microscopic Description Specimen A. SKIN, right upper thigh: The epidermis is mildly acanthotic. There is a lichenoid infiltrate with vacuolar changes of basilar keratinocytes and scattered necrotic keratinocytes. Specimen B. SKIN, right axilla: Within the dermis there are aggregates of basaloid cells with a high nuclear to cytoplasmic ratio and peripheral palisading. 0 2:50 PM [facility] DERMATOPATHOLOGY LABORATORY Disclaimer An external and internal positive and negative controls are appropriate for the histochemical, immunohistochemical and immunofluorescence stain(s) in this case (if any), except where stated explicitly. The performance characteristics of the stain(s) cited in this report were developed and its performance characteristic determined by the Dermatopathology Laboratory at [facility], directed by Dr. Deirdre Plummer. These tests need not be, and therefore are not, approved by the [place] Food and Drug Administration. The tests are used for clinical purposes. Billing Codes Specimen Charges Stain Charges 33362 08201 1 1 0 2:50 PM [facility] DERMATOPATHOLOGY LABORATORY Embedded Images 0 2:50 PM [facility] DERMATOPATHOLOGY LABORATORY Pathology/Cytology TISSUE SPECIMEN FROM SKIN / Unknown 08/17/2020 08/19/2020 6:34 AM PARAPROFESSIONAL AIDE Miscellaneous samples (specimen) TISSUE SPECIMEN FROM SKIN / Unknown 08/17/2020 08/19/2020 6:34 AM PARAPROFESSIONAL AIDE us Asael Garcia MD LAB - PATHOLOGY/CYTOLOGY ORDER JACQUELINE Final Result DERMATOPATHOLOGY LABORATORY [facility] - Department of Dermatology [facility] [address] [facility], 3rd Floor [address] [phone] documented in this encounter Visit Diagnoses Not on filedocumented in this encounter Care Teams Electrophysiologist Relationship Specialty Start Date End Date Timbo Esquivel MD [address] [facility] [address] [place] [address] PCP - General 12/24/19 10/05/20 Ciro Ko MD [address] [place] [address] PCP - General Internal Medicine 10/06/20 02/15/21 Timbo Esquivel MD [address] [facility] [address] [facility] [address] [place] [address] PCP - General 02/16/21 02/23/21 Ciro Ko MD [address] [place] [address] PCP - General Internal Medicine 02/24/21 10/26/22 Donis Jackson DO [facility] [place] [address] PCP - General Family Medicine 10/27/22 12/11/23 Carrillo Martínez MD [address] [facility] [address] [place] [address] PCP - General Family Medicine 12/12/23 [place] [address] [address] Orthopedic Surgery 05/05/13 [place] [address] [place] [address] Physical Medicine and Rehabilitation 10/06/20 documented as of this encounter
--- OUTSIDE RECORDS SUMMARY | 2025-07-16 13:06 | XMS_ITS | Encounter Summary ---
Author Organization [facility] Address [address] [facility] [place] [address] Care Team Providers Care Pecan Gatherer Name Role Phone Arik INGRAM MD, Apolinar Unavailable [phone] Vicente Butts MD Unavailable [phone] Donis Jackson DO Primary Care Provider [phone] Carrillo Martínez MD Primary Care Provider + [phone] Encounter Details Date Type Department Care Team (Late st Contact Info) Description 08/29/2023 Lab Requisition [facility] - DermPath Lab [address] [place] [address] Asael Garcia MD [address] [place] [address] Social History Tobacco Use Types Packs/Day Years Used Date Smoking Tobacco: Former Cigarettes Smokeless Tobacco: Never Alcohol Use Standard Drinks/Week Comments Yes 7 (1 standard drink = 0.6 oz pur e alcohol) Comments No Sex and Gender Information Value Date Recorded Sex Assigned at Not on file Legal Sex Female 6:39 AM QUALITY CONTROL CHEMIST Gender Identity Female 03/30/2021 5:24 PM CDT Sexual Orientation Not on file Occupation Industry Job Start Date Job End Date RETIRED Not on file Not on file Not on file documented as of this encounter Functional Status * Is person deaf or have serious hearing difficulty? Answer Date of Assessment Author No 12/29/2022 9:57 AM CDT Aaliyah Paz RN * Is person blind or have serious difficulty seeing? Answer Date of Assessment Author No 12/29/2022 9:57 AM Aaliyah Guardado RN * Does person have serious difficulty walking/climbing stairs? Answer Date of Assessment Author No 12/29/2022 9:57 AM Aaliyah Guardado RN * Does person have difficulty dressing/bathing? Answer Date of Assessment Author No 12/29/2022 9:57 AM Aaliyah Guardado RN * Does person have difficulty doing errands alone? Answer Date of Assessment Author No 12/29/2022 9:57 AM Aaliyah Guardado RN documented as of this encounter Mental Status * Does person have difficulty concentrating/remembering/making decisions? Answer Entry Date Author No 12/29/2022 9:57 AM Aaliyah Guardado RN documented in this encounter Plan of Treatment Not on file documented as of this encounter Procedures Procedure Name Priority Date/Time Associated Diagnosis Comments DERMATOPATHOLOGY Routine 08/27/2023 12:0 0 AM QUALITY CONTROL CHEMIST documented in this encounter Results * DERMATOPATHOLOGY (08/27/2023 12:00 AM QUALITY CONTROL CHEMIST) Case Report Dermatopathology Report Case: [id number] Authorizing Provider: Asael Garcia MD Collected: 08/27/2023 12:00 AM Ordering Location: [facility] DermPath Lab Received: 08/29/2023 08:44 AM Pathologist: Yessi Chau MD Specimen: Skin, right upper esparza 3 1:01 PM [facility] DERMATOPATHOLOGY LABORATORY Final Diagnosis Specimen A. SKIN, right upper esparza: SQUAMOUS CELL CARCINOMA, WELL DIFFERENTIATED (C44.722) 3 1:01 PM [facility] DERMATOPATHOLOGY LABORATORY at 1301 QUALITY CONTROL CHEMIST Clinical History BCCA vs SCCA Path# [id number] 3 1:01 PM [facility] DERMATOPATHOLOGY LABORATORY Gross Description Specimen A: Received is one formalin filled container labeled with the patient's name and designated right upper esparza. The specimen consists of a shave biopsy measuring 8x8x1 mm. Jar 0. 3 1:01 PM [facility] DERMATOPATHOLOGY LABORATORY Microscopic Description Specimen A. SKIN, right upper esparza: Arising in the epidermis and extending into the dermis there are irregularly shaped aggregates of keratinocytes showing evidence of premature cornification. 3 1:01 PM [facility] DERMATOPATHOLOGY LABORATORY Disclaimer An external and internal positive and negative controls are appropriate for the histochemical, immunohistochemical and immunofluorescence stain(s) in this case (if any), except where stated explicitly. The performance characteristics of the stain(s) cited in this report were developed and its performance characteristic determined by the Dermatopathology Laboratory at [facility], directed by Dr. Deirdre Plummer. These tests need not be, and therefore are not, approved by the [place] Food and Drug Administration. The tests are used for clinical purposes. Billing Codes Specimen Charges Stain Charges 76172 1 3 1:01 PM [facility] DERMATOPATHOLOGY LABORATORY Embedded Images 3 1:01 PM [facility] DERMATOPATHOLOGY LABORATORY Pathology/Cytolog y TISSUE SPECIMEN FROM SKIN / Unknown 08/27/2023 08/29/2023 8:44 AM QUALITY CONTROL CHEMIST Asael Garcia MD LAB - PATHOLOGY/CYTOLOGY ORDER JACQUELINE Final Result DERMATOPATHOLOGY LABORATORY [facility] - Department of Dermatology [facility] Medicine [address] [place] [address], [address] [phone] documented in this encounter Visit Diagnoses Not on filedocumented in this encounter Care Teams Pecan Gatherer Relationship Specialty Start Date End Date Donis Jackson DO [address] [place] [address] PCP - General Family Medicine 10/27/22 12/11/23 Carrillo Martínez MD [address] [address] PCP - General Family Medicine 12/12/23 [place] [address] [place] [address] Orthopedic Surgery 05/05/13 [place] [address] [place] [address] Physical Medicine and Rehabilitation 10/06/20 documented as of this encounter
--- OUTSIDE RECORDS SUMMARY | 2025-07-16 13:06 | XMS_ITS | Encounter Summary ---
Author Organization [facility] Address [address] [facility] [place] [address] Care Team Providers Care Sheeter Waxer Operator Name Role Phone Unknown, Provider Primary Care Provider Unavaila cristin Elise IV, MD, Apolinar Unavailable [phone] Timbo Esquivel MD Primary Care Provider [phone] Ciro Ko MD Primary Care Provider [phone] Vicente Butts MD Unavailable [phone] Timbo Esquivel MD Primary Care Provider [phone] Ciro Ko MD Primary Care Provider [phone] Donis Jackson DO Primary Care Provider [phone] Carrillo Martínez MD Primary Care Provider + [phone] Encounter Details Date Type Department Care Team (Late st Contact Info) Description 05/12/2013 Therapy Visit EXTERNAL NON-[facility] [place] [address] [address] Social History Tobacco Use Types Packs/Day Years Used Date Smoking Tobacco: Never Assessed Comments Unknown Sex and Gender Information Value Date Recorded Sex Assigned at Not on file Legal Sex Female 6:39 AM DEPUTY SHERIFF BUILDING GUARD Gender Identity Female 03/30/2021 5:24 PM CDT Sexual Orientation Not on file documented as of this encounter Plan of Treatment Not on file documented as of this encounter Visit Diagnoses Not on filedocumented in this encounter Care Teams Sheeter Waxer Operator Relationship Specialty Start Date End Date Unknown, Provider PCP - General 09/16/08 03/03/14 Timbo Esquivel MD [address] [facility] [address] [facility] 204 [place] [address] PCP - General 12/24/19 10/05/20 Ciro Ko MD [address] [place] [address] PCP - General Internal Medicine 10/06/20 02/15/21 Timbo Esquivel MD [address] [facility] 162 [facility] [address] [place] [address] PCP - General 02/16/21 02/23/21 Ciro Ko MD [address] [place] [address] PCP - General Internal Medicine 02/24/21 10/26/22 Donis Jackson DO [address] [place] [phone] PCP - General Family Medicine 10/27/22 12/11/23 Carrillo Martínez MD [address] [facility] 130 [place] [phone] PCP - General Family Medicine 12/12/23 [place] [address] [place] [address] Orthopedic Surgery 05/05/13 [place] [address] [place] [address] Physical Medicine and Rehabilitation 10/06/20 documented as of this encounter
--- OUTSIDE RECORDS SUMMARY | 2025-07-16 13:06 | XMS_ITS | Encounter Summary ---
Author Organization [facility] Address [address] [facility] [place] [address] Care Team Providers Care First Mate Name Role Phone Arik INGRAM MD, Apolinar Unavailable [phone] Vicente Butts MD Unavailable [phone] Timbo Esquivel MD Primary Care Provider [phone] Ciro Ko MD Primary Care Provider + [phone] Donis Jackson DO Primary Care Provider [phone] Carrillo Martínez MD Primary Care Provider + [phone] Encounter Details Date Type Department Care Team (Late st Contact Info) Description 02/17/2021 Lab Requisition [facility] Care DermPath Lab [address] [facility], [place] [address] Asael Garcia MD [address] [place] [address] Social History Tobacco Use Types Packs/Day Years Used Date Smoking Tobacco: Former Cigarettes Smokeless Tobacco: Never Alcohol Use Standard Drinks/Week Comments Yes 0 (1 standard drink = 0.6 oz pur e alcohol) SOCIALLY Comments No Sex and Gender Information Value Date Recorded Sex Assigned at Not on file 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 Sex Female 6:39 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 SKIN, left mid back: BASAL CELL CARCINOMA, SUPERFICIAL MULTIFOCAL (C44.519) Specimen B. SKIN, right mid back: BASAL CELL CARCINOMA, SUPERFICIAL MULTIFOCAL (C44.519) 4:56 PM CDT DERMATOPATHOLOGY LABORATORY at 1656 CDT Clinical History A: BCCA. Path# [id number]. B: BCCA. Path# [id number]. 4:56 PM CDT DERMATOPATHOLOGY LABORATORY Gross Description Specimen A: Received is one formalin filled container labeled with the patient's name and designated left mid back. The specimen consists of a shave biopsy measuring 3r5o2lr. Jar 0. Specimen B: Received is one formalin filled container labeled with the patient's name and designated right mid back. The specimen consists of a shave biopsy measuring 4v7i9jp. Jar 0. 4:56 PM CDT DERMATOPATHOLOGY LABORATORY Microscopic Description Specimen A. SKIN, left mid back: Attached to the undersurface of the epidermis, there are small aggregates of basaloid cells with a high nuclear to cytoplasmic ratio and peripheral palisading. Specimen B. SKIN, right mid back: Attached to the undersurface of the epidermis, there are small aggregates of basaloid cells with a high nuclear to cytoplasmic ratio and peripheral palisading. 4:56 PM CDT DERMATOPATHOLOGY LABORATORY Disclaimer An external and internal positive and negative controls are appropriate for the histochemical, immunohistochemical and immunofluorescence stain(s) in this case (if any), except where stated explicitly. The performance characteristics of the stain(s) cited in this report were developed and its performance characteristic determined by the Dermatopathology Laboratory at [facility], directed by Dr. Deirdre Plummer. These tests need not be, and therefore are not, approved by the [place] Food and Drug Administration. The tests are used for clinical purposes. Billing Codes Specimen Charges Stain Charges 98537 71520 1 1 4:56 PM CDT DERMATOPATHOLOGY LABORATORY Embedded Images 4:56 PM CDT DERMATOPATHOLOGY LABORATORY Pathology/Cytology TISSUE SPECIMEN FROM SKIN / Unknown 02/15/2021 3:33 AM CDT 02/17/2021 7:37 AM CDT Miscellaneous samples (specimen) TISSUE SPECIMEN FROM SKIN / Unknown 02/15/2021 3:33 AM CDT 02/17/2021 7:37 AM CDT us Asael Garcia MD LAB - PATHOLOGY/CYTOLOGY ORDER JACQUELINE Final Result DERMATOPATHOLOGY LABORATORY [facility] - Department of Dermatology [facility] [address] [facility], 3rd Floor [address] [phone] documented in this encounter Visit Diagnoses Not on filedocumented in this encounter Care Teams First Mate Relationship Specialty Start Date End Date Timbo Esquivel MD [address] [place] [address] PCP - General 02/16/21 02/23/21 Ciro Ko MD [address] [place] [address] PCP - General Internal Medicine 02/24/21 10/26/22 Donis Jackson DO [address] [place] [address] PCP - General Family Medicine 10/27/22 12/11/23 Carrillo Martínez MD [address] [place] [address] PCP - General Family Medicine 12/12/23 [place] [address] [place] [address] Orthopedic Surgery 05/05/13 [place] [address] [place], [place] [phone] Physical Medicine and Rehabilitation 10/06/20 documented as of this encounter
--- OUTSIDE RECORDS SUMMARY | 2025-07-16 13:06 | XMS_ITS | Encounter Summary ---
Author Organization [facility] Address [address] [facility] [place] [address] Care Team Providers Care Tree Feller Name Role Phone Arik INGRAM MD, Apolinar Unavailable [phone] Timbo Esquivel MD Primary Care Provider [phone] Ciro Ko MD Primary Care Provider [phone] Vicente Butts MD Unavailable [phone] Timbo Esquivel MD Primary Care Provider [phone] Ciro Ko MD Primary Care Provider [phone] Donis Jackson DO Primary Care Provider [phone] Carrillo Martínez MD Primary Care Provider + [phone] Encounter Details Date Type Department Care Team (Late st Contact Info) Description 01/30/2020 Lab Requisition [facility] Care DermPath Lab [address] [facility] [place] [phone] Asael Garcia MD [address] [place] [address] Social History Tobacco Use Types Packs/Day Years Used Date Smoking Tobacco: Former Cigarettes Alcohol Use Standard Drinks/Week Comments Yes 0 (1 standard drink = 0.6 oz pur e alcohol) SOCIALLY Comments No Sex and Gender Information Value Date Recorded Sex Assigned at Not on file 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 SKIN, mid back: BASAL CELL CARCINOMA; NOT PRESENT AT MARGIN (C44.519) DERMAL SCAR; PRESENT AT MARGIN (L90.5) INTRADERMAL MELANOCYTIC NEVUS, incidental; PRESENT AT MARGIN (D22.5) (see microscopic description) 0 3:10 PM CDT DERMATOPATHOLOGY LABORATORY at 1510 CDT Clinical History Bx proven sup BCCA (multifocal). Check margins. Path # [id number]. 0 3:10 PM CDT DERMATOPATHOLOGY LABORATORY Gross Description Specimen A: Received is one formalin filled container labeled with the patient's name and designated mid back. The specimen consists of a non-oriented ellipse of skin measuring 71x22m2ac. The epidermal surface consists of a centrally located 6x6mm previous biopsy site. The margin is inked green. The 12 o'clock and 6 o'clock tips are submitted in cassette 1. The remainder of the ellipse is serially sectioned and submitted in cassettes 2-4. Jar 0. 0 3:10 PM CDT DERMATOPATHOLOGY LABORATORY Microscopic Description Specimen A. SKIN, mid back: Within the dermis there are aggregates of basaloid cells with a high nuclear to cytoplasmic ratio and peripheral palisading, seen in blocks A2 and A3. This lesion is not present at the margin of the specimen. There are fibroblasts and collagen bundles oriented parallel to the skin surface with elongated blood vessels, some of which are oriented perpendicular to the skin surface. These scar changes are present at one lateral margin of the specimen, seen in block A2, and at one tip of the specimen in block A1, even after re-embedding the tissue and sectioning closer to the margin. Located away from the scar, there are nests of cytologically bland melanocytes within the dermis that mature with depth. This incidental nevus is present at one lateral margin of the specimen, seen in block A2. 0 3:10 PM CDT DERMATOPATHOLOGY LABORATORY Disclaimer An external and internal positive and negative controls are appropriate for the histochemical, immunohistochemical and immunofluorescence stain(s) in this case (if any), except where stated explicitly. The performance characteristics of the stain(s) cited in this report were developed and its performance characteristic determined by the Dermatopathology Laboratory at [facility], directed by Dr. Deirdre Plummer. These tests need not be, and therefore are not, approved by the [place] Food and Drug Administration. The tests are used for clinical purposes. Billing Codes Specimen Charges Stain Charges 68982 1 0 3:10 PM CDT DERMATOPATHOLOGY LABORATORY Embedded Images 0 3:10 PM CDT DERMATOPATHOLOGY LABORATORY Pathology/Cytolog y TISSUE SPECIMEN FROM SKIN / Unknown 01/30/2020 01/30/2020 2:19 PM CDT Asael Garcia MD LAB - PATHOLOGY/CYTOLOGY ORDER JACQUELINE Final Result DERMATOPATHOLOGY LABORATORY [facility] - Department of Dermatology [facility] 5th Floor Lab [address] [phone] documented in this encounter Visit Diagnoses Not on filedocumented in this encounter Care Teams Tree Feller Relationship Specialty Start Date End Date Timbo Esquivel MD [address] [facility] [address] [facility] [address] [place] [address] PCP - General 12/24/19 10/05/20 Ciro Ko MD [address] [place] [phone] PCP - General Internal Medicine 10/06/20 02/15/21 Timbo Esquivel MD [address] [facility] [address] [facility] [address] [place] [address] PCP - General 02/16/21 02/23/21 Ciro Ko MD [address] [place] [address] PCP - General Internal Medicine 02/24/21 10/26/22 Donis Jackson DO [address] [place] [phone] PCP - General Family Medicine 10/27/22 12/11/23 Carrillo Martínez MD [address] [facility] [address] [place] [phone] PCP - General Family Medicine 12/12/23 [place] [address] [address] [place] [address] Orthopedic Surgery 05/05/13 [place] [address] [place] [address] Physical Medicine and Rehabilitation 10/06/20 documented as of this encounter
== END 2025-07-16 12:59 | disposition home or self-care (01) ==
LOC: ANHCARD 13:01
PROVIDERS: PCP Family Medicine; Visit Provider Family Medicine
DX: I35.0 Nonrheumatic aortic (valve) stenosis (principal); R93.1 Abnormal findings on diagnostic imaging of heart and coronary circulation
CPT/HCPCS: 93306

== ENCOUNTER 2025-09-15 17:39 | Emergency (ER) | payer MEDICARE, SELFPAY ==
[2025-09-15 17:53] VITALS: BP 133/100; PULSE 85; RESP 17; TEMP 36.6; O2SAT 98
--- OUTSIDE RECORDS SUMMARY | 2025-09-15 18:28 | XMS_ITS | Encounter Summary ---
Author Organization [facility] Address [address] [facility] [place] [address] Care Team Providers Care Horologist Name Role Phone Arik INGRAM MD, Apolinar Unavailable [phone] Vicente Butts MD Unavailable [phone] Ciro Ko MD Primary Care Provider + [phone] Donis Jackson DO Primary Care Provider [phone] Carrillo Martínez MD Primary Care Provider + [phone] Encounter Details Date Type Department Care Team (Late st Contact Info) Description 08/05/2021 [facility] Outpatient Visit EXTERNAL NON-[facility] DEPT Unknown, Provider Social History Tobacco Use Types Packs/Day Years Used Date Smoking Tobacco: Former Cigarettes Smokeless Tobacco: Never Alcohol Use Standard Drinks/Week Comments Yes 0 (1 standard drink = 0.6 oz pur e alcohol) SOCIALLY Comments No Sex and Gender Information Value Date Recorded Sex Assigned at Not on file 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 Gender Identity Female 03/30/2021 5:24 PM CDT [...] on filedocumented in this encounter Care Teams Horologist Relationship Specialty Start Date End Date Ciro Ko MD [address] [place] [address] PCP - General Internal Medicine 02/24/21 10/26/22 Donis Jackson DO [facility]7 [place] [address] PCP - General Family Medicine 10/27/22 12/11/23 Carrillo Martínez MD [address] [facility] [address] [place] [address] PCP - General Family Medicine 12/12/23 [place] [address] [place] [address] Orthopedic Surgery 05/05/13 [place] [address] [place] [address] Physical Medicine and Rehabilitation 10/06/20 documented as of this encounter
--- OUTSIDE RECORDS SUMMARY | 2025-09-15 18:28 | XMS_ITS | Encounter Summary ---
Author Organization [facility] Address [address] [place] [address] Care Team Providers Care Tub Puller Name Role Phone Arik INGRAM MD, Apolinar Unavailable [phone] Timbo Esquivel MD Primary Care Provider [phone] Ciro Ko MD Primary Care Provider + [phone] Vicente Butts MD Unavailable [phone] Timbo Esquivel MD Primary Care Provider [phone] Ciro Ko MD Primary Care Provider [phone] Donis Jackson DO Primary Care Provider [phone] Carrillo Martínez MD Primary Care Provider + [phone] Encounter Details Date Type Department Care Team (Late st Contact Info) Description 08/19/2020 Lab Requisition [facility] Care DermPath Lab [address] [facility] [place] [phone] Asael Garcia MD [address] [place] [address] Social History Tobacco Use Types Packs/Day Years Used Date Smoking Tobacco: Former Cigarettes Alcohol Use Standard Drinks/Week Comments Yes 0 (1 standard drink = 0.6 oz pur e alcohol) SOCIALLY Comments No Sex and Gender Information Value Date Recorded Sex Assigned at Not on file Legal Sex Female 6:39 AM MUSEUM GUIDE Gender Identity Female 03/30/2021 5:24 PM CDT [...] Comments DERMATOPATHOLOGY Routine 08/17/2020 12:0 0 AM MUSEUM GUIDE documented in this encounter Results * DERMATOPATHOLOGY (08/17/2020 12:00 AM MUSEUM GUIDE) Case Report Dermatopathology Report Case: [id number] Authorizing Provider: Asael Garcia MD Collected: 08/17/2020 12:00 AM Ordering Location: [facility] DermPath Lab Received: 08/19/2020 06:34 AM Pathologist: Yessi Chau MD Specimens: A) - Skin, right upper thigh B) - Skin, right axilla 0 2:50 PM MUSEUM GUIDE DERMATOPATHOLOGY LABORATORY Final Diagnosis Specimen A. SKIN, right upper thigh: LICHEN PLANUS-LIKE KERATOSIS (BENIGN LICHENOID KERATOSIS) (L82.1) Specimen B. SKIN, right axilla: BASAL CELL CARCINOMA, NODULAR TYPE (C44.519) 0 2:50 PM MUSEUM GUIDE DERMATOPATHOLOGY LABORATORY at 1450 MUSEUM GUIDE Clinical History A: BCC vs SCCA. Path # [id number]. B: BCC vs SCCA. Path # [id number]. 0 2:50 PM [facility] DERMATOPATHOLOGY LABORATORY Gross Description Specimen A: Received is one formalin filled container labeled with the patient's name and designated right upper thigh. The specimen consists of a shave biopsy measuring [id number]. Jar 0. Specimen B: Received is one formalin filled container labeled with the patient's name and designated right axilla. The specimen consists of a shave biopsy measuring [id number]. Jar 0. 0 2:50 PM [facility] DERMATOPATHOLOGY LABORATORY Microscopic Description Specimen A. SKIN, right upper thigh: The epidermis is mildly acanthotic. There is a lichenoid infiltrate with vacuolar changes of basilar keratinocytes and scattered necrotic keratinocytes. Specimen B. SKIN, right axilla: Within the dermis there are aggregates of basaloid cells with a high nuclear to cytoplasmic ratio and peripheral palisading. 0 2:50 PM [facility] DERMATOPATHOLOGY LABORATORY Disclaimer An external and internal positive and negative controls are appropriate for the histochemical, immunohistochemical and immunofluorescence stain(s) in this case (if any), except where stated explicitly. The performance characteristics of the stain(s) cited in this report were developed and its performance characteristic determined by the Dermatopathology Laboratory at [facility], directed by Dr. Deirdre Plummer. These tests need not be, and therefore are not, approved by the [place] Food and Drug Administration. The tests are used for clinical purposes. Billing Codes Specimen Charges Stain Charges 93122 54583 1 1 0 2:50 PM [facility] DERMATOPATHOLOGY LABORATORY Embedded Images 0 2:50 PM [facility] DERMATOPATHOLOGY LABORATORY Pathology/Cytology TISSUE SPECIMEN FROM SKIN / Unknown 08/17/2020 08/19/2020 6:34 AM MUSEUM GUIDE Miscellaneous samples (specimen) TISSUE SPECIMEN FROM SKIN / Unknown 08/17/2020 08/19/2020 6:34 AM MUSEUM GUIDE us Asael Garcia MD LAB - PATHOLOGY/CYTOLOGY ORDER JACQUELINE Final Result DERMATOPATHOLOGY LABORATORY [facility] - Department of Dermatology [facility] [address] [facility], 3rd Floor [address] [phone] documented in this encounter Visit Diagnoses Not on filedocumented in this encounter Care Teams Tub Puller Relationship Specialty Start Date End Date Timbo Esquivel MD [address] [facility] [address] [place] [address] PCP - General 12/24/19 10/05/20 Ciro Ko MD [address] [place] [address] PCP - General Internal Medicine 10/06/20 02/15/21 Timbo Esquivel MD [address] [facility] [address] [facility] [address] [place] [address] PCP - General 02/16/21 02/23/21 Ciro Ko MD [address] [place] [address] PCP - General Internal Medicine 02/24/21 10/26/22 Donis Jackson DO [facility]7 [place] [address] PCP - General Family Medicine 10/27/22 12/11/23 Carrillo Martínez MD [address] [facility] 130 [place] [address] PCP - General Family Medicine 12/12/23 [place] [address] [address] Orthopedic Surgery 05/05/13 [place] [address] [place] [address] Physical Medicine and Rehabilitation 10/06/20 documented as of this encounter
--- OUTSIDE RECORDS SUMMARY | 2025-09-15 18:28 | XMS_ITS | Encounter Summary ---
Author Organization [facility] Address [address] [facility] [place] [address] Care Team Providers Care Earth Science Professor Name Role Phone Unknown, Provider Primary Care Provider Unavaila cristin Elise IV, MD, Apolinar Unavailable [phone] Timbo Esquivel MD Primary Care Provider [phone] Ciro Ko MD Primary Care Provider [phone] Vicente Butts MD Unavailable [phone] Timbo Esquivel MD Primary Care Provider [phone] Ciro Ko MD Primary Care Provider + [phone] Donis Jackson DO Primary Care Provider [phone] Carrillo Martínez MD Primary Care Provider + [phone] Encounter Details Date Type Department Care Team (Late st Contact Info) Description 05/12/2013 Therapy Visit EXTERNAL NON-[facility] [place] [address] [address] Social History Tobacco Use Types Packs/Day Years Used Date Smoking Tobacco: Never Assessed Comments Unknown Sex and Gender Information Value Date Recorded Sex Assigned at Not on file 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 Gender Identity Female 03/30/2021 5:24 PM CDT Sexual Orientation Not on file documented as of this encounter Plan of Treatment Not on file documented as of this encounter Visit Diagnoses Not on filedocumented in this encounter Care Teams Earth Science Professor Relationship Specialty Start Date End Date Unknown, Provider PCP - General 09/16/08 03/03/14 Timbo Esquivel MD [address] [facility] [address] [facility] [address] [place] [address] PCP - General 12/24/19 10/05/20 Ciro Ko MD [address] [place] [address] PCP - General Internal Medicine 10/06/20 02/15/21 Timbo Esquivel MD [address] [facility] [address] [facility] 204 [place] [address] PCP - General 02/16/21 02/23/21 Ciro Ko MD [address] [place] [address] PCP - General Internal Medicine 02/24/21 10/26/22 Donis Jackson DO [address] [place] [phone] PCP - General Family Medicine 10/27/22 12/11/23 Carrillo Martínez MD [address] [facility] 130 [place] [phone] PCP - General Family Medicine 12/12/23 [place] [address] [address] [place] [address] Orthopedic Surgery 05/05/13 [place] [address] [place] [address] Physical Medicine and Rehabilitation 10/06/20 documented as of this encounter
--- OUTSIDE RECORDS SUMMARY | 2025-09-15 18:28 | XMS_ITS | Encounter Summary ---
Author Organization [facility] Address [address] [facility] [place] [address] Care Team Providers Care Wood Craftsman Name Role Phone Arik INGRAM MD, Apolinar Unavailable [phone] Vicente Butts MD Unavailable [phone] Donis Jackson DO Primary Care Provider [phone] Carrillo Martínez MD Primary Care Provider + [phone] Encounter Details Date Type Department Care Team (Late st Contact Info) Description 08/29/2023 Lab Requisition [facility] - DermPath Lab [address] [place] [address] Asael Garcia MD [address] [place] [address] Social History Tobacco Use Types Packs/Day Years Used Date Smoking Tobacco: Former Cigarettes Smokeless Tobacco: Never Alcohol Use Standard Drinks/Week Comments Yes 7 (1 standard drink = 0.6 oz pur e alcohol) Comments No Sex and Gender Information Value Date Recorded Sex Assigned at Not on file Legal Sex Female 6:39 AM BUILDING ARCHITECT Gender Identity Female 03/30/2021 5:24 PM CDT [...] Comments DERMATOPATHOLOGY Routine 08/27/2023 12:0 0 AM BUILDING ARCHITECT documented in this encounter Results * DERMATOPATHOLOGY (08/27/2023 12:00 AM BUILDING ARCHITECT) Case Report Dermatopathology Report Case: [id number] Authorizing Provider: Asael Garcia MD Collected: 08/27/2023 12:00 AM Ordering Location: [facility] DermPath Lab Received: 08/29/2023 08:44 AM Pathologist: Yessi Chau MD Specimen: Skin, right upper esparza 3 1:01 PM [facility] DERMATOPATHOLOGY LABORATORY Final Diagnosis Specimen A. SKIN, right upper esparza: SQUAMOUS CELL CARCINOMA, WELL DIFFERENTIATED (C44.722) 3 1:01 PM [facility] DERMATOPATHOLOGY LABORATORY at 1301 BUILDING ARCHITECT Clinical History BCCA vs SCCA Path# [id number] 3 1:01 PM [facility] DERMATOPATHOLOGY LABORATORY Gross Description Specimen A: Received is one formalin filled container labeled with the patient's name and designated right upper esparza. The specimen consists of a shave biopsy measuring 8x8x1 mm. Jar 0. 3 1:01 PM [facility] DERMATOPATHOLOGY LABORATORY Microscopic Description Specimen A. SKIN, right upper esparza: Arising in the epidermis and extending into the dermis there are irregularly shaped aggregates of keratinocytes showing evidence of premature cornification. 3 1:01 PM [facility] DERMATOPATHOLOGY LABORATORY Disclaimer An external and internal positive and negative controls are appropriate for the histochemical, immunohistochemical and immunofluorescence stain(s) in this case (if any), except where stated explicitly. The performance characteristics of the stain(s) cited in this report were developed and its performance characteristic determined by the Dermatopathology Laboratory at [facility], directed by Dr. Deirdre Plummer. These tests need not be, and therefore are not, approved by the [place] Food and Drug Administration. The tests are used for clinical purposes. Billing Codes Specimen Charges Stain Charges 01138 1 3 1:01 PM [facility] DERMATOPATHOLOGY LABORATORY Embedded Images 3 1:01 PM [facility] DERMATOPATHOLOGY LABORATORY Pathology/Cytolog y TISSUE SPECIMEN FROM SKIN / Unknown 08/27/2023 08/29/2023 8:44 AM BUILDING ARCHITECT Asael Garcia MD LAB - PATHOLOGY/CYTOLOGY ORDER JACQUELINE Final Result DERMATOPATHOLOGY LABORATORY [facility] - Department of Dermatology [facility] [address] [place] [address], [address] [phone] documented in this encounter Visit Diagnoses Not on filedocumented in this encounter Care Teams Wood Craftsman Relationship Specialty Start Date End Date Donis Jackson DO [address] [place] [address] PCP - General Family Medicine 10/27/22 12/11/23 Carrillo Martínez MD [address] [address] PCP - General Family Medicine 12/12/23 [place] [address] [place] [address] Orthopedic Surgery 05/05/13 [place] [address] [place] [address] Physical Medicine and Rehabilitation 10/06/20 documented as of this encounter
--- OUTSIDE RECORDS SUMMARY | 2025-09-15 18:28 | XMS_ITS | Encounter Summary ---
Author Organization [facility] Address [address] [facility] [place] [address] Care Team Providers Care Quill Cleaning Machine Operator Name Role Phone Unknown, Provider Primary Care Provider Unavaila cristin Elise IV, MD, Apolinar Unavailable [phone] Timbo Esquivel MD Primary Care Provider [phone] Ciro Ko MD Primary Care Provider + [phone] Vicente Butts MD Unavailable [phone] Timbo Esquivel MD Primary Care Provider [phone] Ciro Ko MD Primary Care Provider + [phone] Donis Jackson DO Primary Care Provider [phone] Carrillo Martínez MD Primary Care Provider + [phone] Encounter Details Date Type Department Care Team (Late st Contact Info) Description 06/24/2013 Therapy Visit EXTERNAL [place]-[facility] [place] [address] [address] Social History Tobacco Use Types Packs/Day Years Used Date Smoking Tobacco: Never Assessed Comments Unknown Sex and Gender Information Value Date Recorded Sex Assigned at Not on file 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 Gender Identity Female 03/30/2021 5:24 PM CDT Sexual Orientation Not on file documented as of this encounter Plan of Treatment Not on file documented as of this encounter Visit Diagnoses Not on filedocumented in this encounter Care Teams Quill Cleaning Machine Operator Relationship Specialty Start Date End Date Unknown, Provider PCP - General 09/16/08 03/03/14 Timbo Esquivel MD [address] [facility] [address] [facility] [address] [place] [address] PCP - General 12/24/19 10/05/20 Ciro Ko MD [address] [place] [address] PCP - General Internal Medicine 10/06/20 02/15/21 Timbo Esquivel MD [address] [facility] [address] [facility] [address] [place] [address] PCP - General 02/16/21 02/23/21 Ciro Ko MD [address] [place] [address] PCP - General Internal Medicine 02/24/21 10/26/22 Donis Jackson DO [address] [place] [phone] PCP - General Family Medicine 10/27/22 12/11/23 Carrillo Martínez MD [address] [facility] [address] [place] [phone] PCP - General Family Medicine 12/12/23 [place] [address] [address] [place] [address] Orthopedic Surgery 05/05/13 [place] [address] [place] [address] Physical Medicine and Rehabilitation 10/06/20 documented as of this encounter
--- OUTSIDE RECORDS SUMMARY | 2025-09-15 18:28 | XMS_ITS | Encounter Summary ---
Author Organization [facility] Address [address] [place] [address] Phone Care Team Providers Care Packaging Mechanic Name Role Phone Ciro Ko MD Unavailable [phone] Carrillo Martínez MD Primary Care Provider [phone] Kassie STONE MD, Carlos M. Unavailable [phone] Jigar Fishman MD Unavailable [phone] Juan Ocampo Unavailable [phone] Ella Zhang MD Unavailable [phone] Christen Gonzalez MD PhD Unavailable [phone] Encounter Details Date Type Department Care Team [...] declined 08/09/2023 How often do you attend [facility] or roman catholic services? Never 08/09/2023 Do you belong to [...] staff should administer the PHQ-9) 0 12/31/2023 [facility] - Occupational Stress [...] on file Legal Sex Female 2:19 AM FINISHING WIRE SAWYER Gender Identity Female 09/05/2021 6:53 AM FINISHING WIRE SAWYER Sexual Orientation Not on file documented as [...] on filedocumented in this encounter Care Teams Packaging Mechanic Relationship Specialty Start Date End Date Carrillo Martínez MD [address] [place] [address] PCP - General Family Medicine 06/25/23 Ciro Ko MD [address] [place] [address] Internal Medicine 04/19/18 [place] [address] [place] [address] Consulting Physician Neurology 06/25/23 [place] [address] [address] [place] [address] Consulting Physician Pain Management 06/25/23 [place] [address] [address] [place] [address] Physician Associate Broker Physician Associate Broker 09/12/23 Ella Zhang MD [address] [place], [place] [address] Consulting Physician Rheumatology 12/31/23 Christen Gonzalez MD PhD [address] [facility] [address] [place], [place] [phone] Radiation Oncologist Radiation Oncology 03/19/24 documented as of this encounter
--- OUTSIDE RECORDS SUMMARY | 2025-09-15 18:28 | XMS_ITS | Encounter Summary ---
Author Organization [facility] Address [address] [facility] [place] [address] Care Team Providers Care Cloth Desizing Range Tender Name Role Phone Arik INGRAM MD, Apolinar Unavailable [phone] Vicente Butts MD Unavailable [phone] Ciro Ko MD Primary Care Provider + [phone] Donis Jackson DO Primary Care Provider [phone] Carrillo Martínez MD Primary Care Provider + [phone] Encounter Details Date Type Department Care Team (Late st Contact Info) Description 04/13/2021 [facility] Outpatient Visit EXTERNAL NON-[facility] DEPT Unknown, Provider Social History Tobacco Use Types Packs/Day Years Used Date Smoking Tobacco: Former Cigarettes Smokeless Tobacco: Never Alcohol Use Standard Drinks/Week Comments Yes 0 (1 standard drink = 0.6 oz pur e alcohol) SOCIALLY Comments No Sex and Gender Information Value Date Recorded Sex Assigned at Not on file 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 Gender Identity Female 03/30/2021 5:24 PM CDT [...] on filedocumented in this encounter Care Teams Cloth Desizing Range Tender Relationship Specialty Start Date End Date Ciro Ko MD [address] [place] [address] PCP - General Internal Medicine 02/24/21 10/26/22 Donis Jackson DO [address] [place] [phone] PCP - General Family Medicine 10/27/22 12/11/23 Carrillo Martínez MD [address] [facility] [address] [place] [address] PCP - General Family Medicine 12/12/23 [place] [address] [address] [place] [address] Orthopedic Surgery 05/05/13 [place] [address] [place] [address] Physical Medicine and Rehabilitation 10/06/20 documented as of this encounter
--- OUTSIDE RECORDS SUMMARY | 2025-09-15 18:28 | XMS_ITS ---
Author Organization [facility] Address [address] [place] [address] Care Team Providers Care College Football Coach Name Role Phone Arik INGRAM MD, Apolinar Unavailable [phone] Vicente Butts MD Unavailable Carrillo Martínez MD Primary Care Provider [phone] Active Problems Problem Noted Date Diagnosed Date [...]
--- OUTSIDE RECORDS SUMMARY | 2025-09-15 18:28 | XMS_ITS | Encounter Summary ---
Author Organization [facility] Address [address] [place] [address] Phone Care Team Providers Care News Clerk Name Role Phone Ciro Ko MD Unavailable [phone] Carrillo Martínez MD Primary Care Provider Kassie STONE MD, Carlos M. Unavailable [phone] Jigar Fishman MD Unavailable Juan Ocampo Unavailable [phone] Ella Zhang MD Unavailable Christen Gonzalez MD PhD Unavailable [phone] Encounter Details Date Type Department Care Team [...] declined 08/09/2023 How often do you attend [facility] or pentecostal services? Never 08/09/2023 Do you belong to any clubs o r organizations such as buddhist groups, unions, fraternal or athletic groups, or [...] Recorded Patient Health Questionnaire-2 Score 0 08/09/2023 [facility] Occup[facility] ional Health - Occupational [...] place to sleep or slept in a fdc (including now)? No 08/09/2023 Personal Safety Answer Date Recorded Have you ever been in or are you currently in a harmful physical or emotional relationship or is someone making you feel afraid or unsafe? Denies 11/22/2023 Comments No Sex and Gender Information Value Date Recorded Sex Assigned at Not on file Legal Sex Female 2:19 AM PROGRAM MANAGEMENT SPECIALIST Gender Identity Female 09/05/2021 6:53 AM PROGRAM MANAGEMENT SPECIALIST Sexual Orientation Not on file documented as [...] on filedocumented in this encounter Care Teams News Clerk Relationship Specialty Start Date End Date Carrillo Martínez MD [address] [place] [address] PCP - General Family Medicine 06/25/23 Ciro Ko MD [address] [place] [address] Internal Medicine 04/19/18 [place] [address] [address] [place] [address] Consulting Physician Neurology 06/25/23 [place] [address] [facility] [address] [place] [address] Consulting Physician Pain Management 06/25/23 [place] [address] [facility] [address] [place] [address] Physician Window Sash Installer Physician Window Sash Installer 09/12/23 Ella Zhang MD [address] [facility] [address] [facility] 14 [place] [address] Consulting Physician Rheumatology 12/31/23 Christen Gonzalez MD PhD [address] [facility] [address] [place] [address] Radiation Oncologist Radiation Oncology 03/19/24 documented as of this encounter
--- OUTSIDE RECORDS SUMMARY | 2025-09-15 18:28 | XMS_ITS | Clinical Summary ---
Author Organization [facility] Address [address] [facility] [place] [address] Care Team Providers Care Wheel Cleaner Name Role Phone Arik INGRAM MD, Apolinar Unavailable [phone] Vicente Butts MD Unavailable [phone] Carrillo Martínez MD Primary Care Provider [phone] Source Comments [facility],non-owned Affiliates and Associated Physician Practices is amultiple site organization consisting of ambulatory clinics and hospital sitesin [place], [place], [place] and [place]. This disclosure is being madepursuant to the Care Everywhere program and may not contain all information available regarding this patient. Last updated 18.[facility] Allergies No known active allergies Medications * Be aware that medications may not be up to date on this document. Alwaysverify current medications with the patient. vitamin C (ASCORBIC ACID) 1000 MG tablet Take 1 (one) tablet by mouth once daily Active [place]-3 Fatty Acids (FISH OIL) 1200 MG Take [...] ARTHRITIS. 60 tablet 4 Active HYDROcodone-acet aminophen ([place]) 5-325 MG tabletIndication s:Post-operative pain Take 1 [...] on file Legal Sex Female 6:39 AM [employer] Gender Identity Female 03/30/2021 5:24 PM CDT Sexual Orientation Not on file Occupation Industry Job Start Date Job End Date RETIRED Not on file Not on file Not on file Last Filed Vital Signs Vital Sign Reading Time Taken Comments Blood Pressure 126/72 03/26/2025 10:24 AM CDT Pulse 74 03/26/2025 10:24 AM CDT Temperature 36.1 C (96.9 F) 11/14/2024 11:55 AM [employer] Respiratory Rate 16 11/14/2024 12:25 PM [employer] Oxygen Saturation 97% 03/26/2025 10:24 AM CDT [...] CALENDAR YEAR 2024 COVID-19 VACCINE (1 - 2024- season) 2025 Respiratory Syncytial Virus (RSV) Vaccine Pt: or over 60 yrs (1 - 1-dose 75+ series) 2026 MAMMOGRAM 06/29/2027 06/29/2025, 06/15, 06/06/2024, Additional history exists BONE DENSITY TESTING Completed 12/13/2023, 03/01/2022, 09/10/2019, Additional history exists DEPRESSION SCREENING Completed 10/30/2024 INFLUENZA VACCINE Completed 07/27/2025, , 07/02/2020, Additional history exists HEPATITIS B VACCINE Aged Out No longe [...] this topic Medical Devices Implanted Type Area Wash House Worker Device Identifier Shelf Expiration Date Model / Serial / Lot Bsplt Glnd Cmprh 25 Mm Mini Shldr Tpr Ad Implanted:Qty: 1 on 12/29/2022 by Janiya Pollack MD at [facility] Prosthesis Right: Shoulder [employer] 12/11/2032 [id number] / / [id number] Cmpnt Glnd 36mm Std Glenosphere Clr Cd Implanted:Qty: 1 on 12/29/2022 by Janiya Pollack MD at [facility] Prosthesis Right: Shoulder [employer] 09/21/2032 [id number] / / [id number] Brng Hum 36mm Cmprh +3mm Shldr Vivacit-E Implanted:Qty: 1 on 12/29/2022 by Janiya Pollack MD at [facility] Prosthesis Right: Shoulder [employer] 04/13/2024 [id number] / / [id number] Screw 4.75mm 15mm 3.5mm Lck Fx Ang Hex Implanted:Qty: 1 on 12/29/2022 by Janiya Pollack MD at [facility] Screw Right: Shoulder [employer] 09/25/2032 [id number] / / [id number] Screw 4.75mm 15mm 3.5mm Lck Fx Ang Hex Implanted:Qty: 1 on 12/29/2022 by Janiya Pollack MD at [facility] Screw Right: Shoulder [employer] 05/05/2032 [id number] / / [id number] Screw 4.75mm 15mm 3.5mm Lck Fx Ang Hex Implanted:Qty: 1 on 12/29/2022 by Janiya Pollack MD at [facility] Screw Right: Shoulder [employer] 08/05/2032 [id number] / / [id number] Screw 4.75mm 30mm 3.5mm Lck Fx Ang Hex Implanted:Qty: 1 on 12/29/2022 by Janiya Pollack MD at [facility] Screw Right: Shoulder [employer] 06/26/2032 [id number] / / [id number] Screw 6.5mm 30mm 3.5mm Cntr Hex Shldr Implanted:Qty: 1 on 12/29/2022 by Janiya Pollack MD at [facility] Screw Right: Shoulder [employer] 08/19/2032 [id number] / / [id number] Tray Hum Cmprh +6mm Std Shldr Rvrs Implanted:Qty: 1 on 12/29/2022 by Janiya Pollack MD at [facility] Right: Shoulder [employer] 11/15/2032 [id number] / / [id number] Stem Hum W/Align Tpr 45deg 11mm X 140mm Implanted:Qty: 1 on 12/29/2022 by Janiya Pollack MD at [facility] Right: Shoulder [employer] 07/02/2032 [id number] / / [id number] Mtrx Tissue Viaflow [facility] 2cc - [id number] Implanted:Qty: 1 on 11/14/2024 by Christen Hernandez DPM at [facility] Right: Foot [employer] 03/24/2029 [id number] / [id number] / Explanted Type Area Wash House Worker Device Identifier Shelf Expiration Date Model / Serial / Lot Pin Fx 9in 3.2mm Stnm Explanted:Qty: 1 on 12/29/2022 at [facility] [employer] 11/09/2032 [id number] / / [id number] [place] [address] [employer] MEDICARE ADV [place] [id number] [place] [id number] [facility] MANAGED MEDICARE ADV [facility] MANAGED MEDICARE ADV [facility] MANAGED MEDICARE ADV Advance Directives * Full Code (Latest Code Status on File) Date Activated Date Inactivated Comments 12/06/2015 4:37 PM 12/06/2015 6:36 PM Care Teams Wheel Cleaner Relationship Specialty Start Date End Date Carrillo Martínez MD [address] [facility] 130 [place] [address] PCP - General Family Medicine 12/12/23 [place] [address] [address] [place] [address] Orthopedic Surgery 05/05/13 [place] [address] [place] [address] Physical Medicine and Rehabilitation 10/06/20
--- OUTSIDE RECORDS SUMMARY | 2025-09-15 18:28 | XMS_ITS | Encounter Summary ---
Author Organization [facility] Address [address] [facility] [place] [address] Care Team Providers Care Automated Teller Manager Name Role Phone Arik INGRAM MD, Apolinar Unavailable [phone] Vicente Butts MD Unavailable [phone] Ciro Ko MD Primary Care Provider + [phone] Donis Jackson DO Primary Care Provider [phone] Carrillo Martínez MD Primary Care Provider + [phone] Encounter Details Date Type Department Care Team (Late st Contact Info) Description 07/06/2021 [facility] Outpatient Visit EXTERNAL NON-[facility] DEPT Unknown, Provider Social History Tobacco Use Types Packs/Day Years Used Date Smoking Tobacco: Former Cigarettes Smokeless Tobacco: Never Alcohol Use Standard Drinks/Week Comments Yes 0 (1 standard drink = 0.6 oz pur e alcohol) SOCIALLY Comments No Sex and Gender Information Value Date Recorded Sex Assigned at Not on file Legal Sex Female 6:39 AM LEAD ESTHETICIAN Gender Identity Female 03/30/2021 5:24 PM CDT [...] on filedocumented in this encounter Care Teams Automated Teller Manager Relationship Specialty Start Date End Date Ciro Ko MD [address] [place] [address] PCP - General Internal Medicine 02/24/21 10/26/22 Donis Jackson DO [facility] [place] [address] PCP - General Family Medicine 10/27/22 12/11/23 Carrillo Martínez MD [address] [facility] [address] [place] [address] PCP - General Family Medicine 12/12/23 [place] [address] [place] [address] Orthopedic Surgery 05/05/13 [place] [address] [address] [place] [address] Physical Medicine and Rehabilitation 10/06/20 documented as of this encounter
--- OUTSIDE RECORDS SUMMARY | 2025-09-15 18:28 | XMS_ITS | Clinical Summary ---
Author Organization [facility] Address [address] [place] [address] Care Team Providers Care Prior Authorization Nurse Name Role Phone Ciro Ko MD Unavailable [phone] Carrillo Martínez MD Primary Care Provider Kassie STONE MD, Carlos M. Unavailable [phone] Jigar Fishman MD Unavailable Juan Ocampo Unavailable Ella Zhang MD Unavailable [phone] Christen Gonzalez MD PhD Unavailable Allergies No known active allergies Medications calcium carbonate (CALCIUM 500 ORAL)Indications:sup plement Take 1 tablet/capsu le by mouth every morning Active omega-3 fatty acids 500 mg capsuleIndications:s upplement Take 1 capsule by mouth every morning Active MILK THISTLE ORALIndications:supp lement Take 1 tablet/capsu le by mouth every morning Active ascorbic acid (VITAMIN C) 1,000 mg tablet Take 1 tablet (1,000 mg total) by mouth Active omeprazole OTC (PriLOSEC OTC) 20 mg EC tabletIndications:Sy mptomatic Gastroesophageal Reflux Disease Take 1 tablet (20 mg total) by mouth every morning Active coenzyme Q10 (Co Q-10) 10 mg capsuleIndications:s upplement Take 1 capsule (10 mg total) by mouth every morning Active alendronate (FOSAMAX) 70 mg tablet TAKE 1 TABLET (70 MG TOTAL) BY MOUTH EVERY 7 DAYS - TAKE IN THE MORNING WITH A FULL GLASS OF WATER, ON AN EMPTY STOMACH, AND DO NOT TAKE ANYTHING ELSE BY MOUTH OR LIE DOWN FOR THE NEXT 30 MINUTES 12 tablet 3 5 Active lisinopriL (PRINIVIL,ZESTRIL) 30 mg tablet TAKE 1 TABLET BY MOUTH EVERY MORNING 90 tablet [address] (CYMBALTA) 60 mg capsuleIndications:D epression, recurrent TAKE 1 CAPSULE BY MOUTH EVERY MORNING 90 capsule 3 Active traZODone (DESYREL) 100 mg tabletIndications:Pr imary insomnia TAKE 1 TABLET BY MOUTH NIGHTLY NEEDED FOR SLEEP 90 tablet [address] (VOLTAREN) 75 mg EC tablet TAKE 1 TABLET BY MOUTH TWICE A DAY 180 tablet 1 5 Active Active Problems Problem Noted Date Diagnosed Date Anxiety 07/27/2025 Aortic valve insufficiency, acquired 07/27/2025 Chronic left-sided low back pain without sciatic a 07/27/2025 Left sided sciatica 07/27/2025 Menopausal and female climacteric states 025 Polyarticular arthritis 07/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 07/27/2025 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 Encounter for [facility] wellness visit (AWV) in Medicare patient 05/07/2025 Major depressive disorder, single episode, moder ate 05/07/2025 Pre-op exam 11/05/2024 Numbness of arm 03/17/2024 Chondrocalcinosis 12/31/2023 Depression, recurrent 12/31/2023 Pure hypercholesterolemia 12/31/2023 Ductal carcinoma in situ of left breast 10/10/20 23 Ductal carcinoma in situ (DCIS) of left breast 1 12/02/2022 Cancer Staging:Pathologic stage from 11/22/2023:Stage Unknown(pTis (DCIS), pNX, cM0, G3, ER+, CT: Not Assessed, HER2: Not Assessed) - Signed [...] 01/21/2021 Hot flashes due to menopause 04/01/2016 Overweight 03/20/2016 Postmenopausal status 01/27/2016 Encounter for preventive health examination 09/14 Osteoporosis Encounters Date Type Department Care Team Description 09/15/2025 Nurse Triage [facility] Medical Group Primary Care at [address] [phone] Carrillo Martínez MD 09/02/2025 10:40 AM STOCK DIGGER Office Visit [facility] Medicine Rheumatology [address] [place] [address] 5th [place] [address] [place] [address] Ella Zhang MD Primary osteoarthritis involving multiple joints (Primary Dx); Chondrocalcinosis 07/27/2025 9:45 AM CDT Office Visit [facility] Primary Care at [address] [phone] Carrillo Martínez MD Sciatica, left side (Primary Dx); Need for vaccination 07/27/2025 Orders Only [facility] Medical [facility] Primary Care at [address] [phone] Carrillo Martínez MD Mild aortic stenosis 07/23/2025 Nurse Triage [facility] Primary Care at [address] [phone] Carrillo Martínez MD 07/23/2025 Nurse Triage [facility] Medical Group Primary Care at [address] [phone] Stan Martino RN 07/01/2025 Results Follow-Up [facility] Primary Care at [address] [phone] Carrillo Martínez MD Screening Mammogram Bilateral W Darci 06/29/2025 1:14 PM CDT - 06/29/2025 11:59 PM CDT Hospital Encounter [facility] Advanced Medicine Breast Imaging [facility] ([facility]) [address] [place] [id number] Screening mammogram for breast cancer Discharge Disposition: Discharge to home or self care 06/22/2025 2:00 PM CDT Therapy [facility] Medicine Physical Therapy [address] [place] [address] Sneha Francois, DPDelma Pelvic floor dysfunction in female (Primary Dx); Urge incontinence; Bilateral myofascial pain from Last 3 Months Immunizations Immunization Administration Dates Next Due Influenza, Quad, Adjuvantate d, Intramuscular 09/04/2022,07/11/2021 Influenza, Quadrivalent, Hig h Dose, Preservative Free, Intrr 06/25/2023,07/02/2020 Influenza, Trivalent, Adjuva nted, Intramuscular 06/13/2024,07/08/2019 Influenza, Trivalent, High D ose, Split, Preservative Free, Intramuscular 07/27/2025 Influenza, Trivalent, IM (MDV) 07/24/2018 Influenza, Trivalent, Preser vative Free, Intramuscular 07/24/2018 Pneumococcal Conjugate PCV 13 08/08/2017 Pneumococcal Conjugate, Unspecified 07/15/2017 Pneumococcal Polysaccharide PPV23 08/09/2018 Sars-cov-2 Covid-19 Mrna, Bi valent, Original/sienaron Ba.1, A 07/23/2023 Tdap 09/12/2017,08/15/2017 ZOSTER LIVE 12/10/2018,08/08/2017,07/15/2017 ZOSTER Recombinant 12/10/2018 Surgical History Surgery Date Site/Laterality Comments KNEE ARTHROPLASTY 03/15/2008 - 04/13/2008 Right CARPAL TUNNEL RELEASE Right 1990s CYST REMOVAL 10/15/2013 - 10/14/2014 removed from lumbar spine L5 FACET BLOCK CERVICAL THORACIC 1 LEVEL RIGHT 08/21/2022 Right BREAST BIOPSY 02/20/2023 Right fibrocystic (vac assist core bx) SHOULDER SURGERY 12/13/2022 - 01/12/2023 Right Done at [facility] [place] BREAST BIOPSY 08/28/2023 Left atypical cytology (vac [...] examination without abnormal finding Visit for routine oyster buyer exam - (Added by TW Conv) Rheumatoid [...] Passive Smoke Exposure: Past Smokeless Tobacco: Never Tobacco Cessation:Counseling Given: Not Answered Alcohol Use Standard Drinks/Week Comments Yes 0 [...] often do you attend chur ch or sabianist services? Never 08/09/2023 Do you belong to any clubs o r organizations such as hindu groups, unions, fraternal or athletic groups, or [...] points, staff should administer the PHQ-9) 0 07/27/2025 [facility] [place] [facility] Occupat ional Health - Occupational Stress [...] place to sleep or slept in a prison (including now)? No 08/09/2023 Personal Safety Answer Date Recorded Have you ever been in or are you currently in a harmful physical or emotional relationship or is someone making you feel afraid or unsafe? Denies 11/22/2023 Comments No Sex and Gender Information Value Date Recorded Sex Assigned at Not on file Legal Sex Female 2:19 AM STOCK DIGGER Gender Identity Female 09/05/2021 6:53 AM STOCK DIGGER Sexual Orientation Not on file Obstetrics History Para Term AB IAB SAB Ectopic Multiple Livin g Live Births 3 3 3 2 3 Date Outcome GA Total Labor Labor/2nd/3rd Weight Sex Type Anes PTL Sangeetha A1 A5 Name Clin 1970 Term M Vag-S pont Living Complications:None 1973 Term M Vag-S pont Complications:None 1976 Term M Vag-S pont Living Complications:None Last Filed Vital Signs Vital Sign Reading Time Taken Comments Blood Pressure 123/81 09/02/2025 10:41 AM STOCK DIGGER Pulse 70 09/02/2025 10:41 AM STOCK DIGGER Temperature 36.7 C (98.1 F) 09/02/2025 10:41 AM STOCK DIGGER Respiratory Rate 18 07/27/2025 9:56 AM CDT Oxygen Saturation 98% 07/27/2025 9:56 AM CDT Inhaled Oxygen Concentration - - Weight 59.9 kg (132 lb) 09/02/2025 10:41 AM STOCK DIGGER Height 167.6 cm (5' 6) 09/02/2025 10:41 AM STOCK DIGGER Body Mass Index 21.31 09/02/2025 10:41 AM STOCK DIGGER Plan of Treatment Health Maintenance Due Date Last Done Comments Colon Cancer Screening-Colonoscopy 1950 Osteoporosis Screening-Bone Density Scan 12/12/2025 12/13/2023, 03/01/2022, 09/10/2019, Additional history exists Well Visit 65+ 05/07/2026 05/07/2025, 06/15, 03/03/2021, Additional history exists Breast Cancer Screening-Mammogram 06/29/2026 06/29/2025, 06/06/2024, 08/09/2023, Additional history exists Covid-19 Vaccine ( season) 2026 06/13/2024, 07/23/2023, 07/23/2023, Additional history exists Postponed from 06/15/2025 (Patient declined, but will receive in the future) Depression Screening 07/27/2026 07/27/2025, 05/07/2025, 11/05/2024, Additional history exists Fall Risk Assessment 07/27/2026 07/27/2025, 05/07/2025, 11/05/2024, Additional history exists Zoster Vaccine (3 of 3) 07/27/2026 12/10/19, 12/10/2018, 08/08/2017, Additional history exists Postponed from 02/04/2019 (Insurance / Financial) DTaP/Tdap/Td Vaccine (3 - Td or Tdap) 09/12/2027 09/12/2017, 08/15/2017 Pneumococcal vaccine 65+ Completed 018, 08/08/2017, 07/15/2017 Hepatitis C Screening Completed 06/25/2023 Hepatitis B Screening Completed 05/07/2025 Colon Cancer Screening-DNA Stool Discontinued 05/19/2025 Colon Cancer Screening-FIT Discontinued 05/19/2025 Influenza Vaccine Completed 07/27/2025, , 06/25/2023, Additional history exists Medical Devices Implanted Type Area Appraiser Art Device Identifier Shelf Expiration Date Model / Serial / Lot [employer] Eviva 13cm Identifier Biopsy Site [id number] - [id number] Implanted:Qty: 1 on 08/28/2023 at [facility] [employer] [id number] [facility]/20[id number] [employer] Bandariatas 20ga 20cm 9cm Beaded Needle Breast Wire Localization [id number] - [id number] Implanted:Qty: 1 on 11/22/2023 at [facility] Left: Breast [employer] [id number] / / Procedures Procedure Name Priority Date/Time Associated Diagnosis Comments TRANSTHORACIC ECHO (TTE) COMPLETE W DOPPLER/CF Routine 07/16/2025 1:26 PM CDT Mild aortic stenosis SCREENING MAMMOGRAM BILATERAL W DARCI Schedule Routine, Read Routine (OP Routine) 06/29/2025 1:37 PM CDT Screening mammogram for breast cancer STOOL DNA COLOGUARD Routine 05/19/2025 8:00 AM CDT Colon cancer screening DEXA AXIAL SKELETON BONE DENSITY 1 OR MORE SITES Schedule Routine, Read Routine (OP Routine) 12/13/2023 2:14 PM STOCK DIGGER Ductal carcinoma in situ (DCIS) of left breast Asymptomatic menopausal state HEPATITIS C ANTIBODY Routine 06/25/2023 1:58 PM CDT Encounter for hepatitis C screening test for low risk patient from Last 3 Months or Most Recently Relevant to Health Maintenance Results * Transthoracic Echo (TTE) Complete W Doppler/CF (07/16/2025 1:26 PM CDT) Anatomical Region Laterality Modality Ultrasound us Carrillo Martínez MD CV ECHO PROCEDURES Final Re sult * Screening Mammogram Bilateral W Darci (06/29/2025 [...] calcification, or architectural distortion. Carrillo Martínez MD IMG MAMMO PROCEDURES Final Result * Stool DNA - Cologuard (05/19/2025 8:00 AM CDT) Stool DNA - Cologuard Negative Negative [employer] (CLIA #:[id number]) Comment: The Cologuard (TM) test was performed [...] (Tori Grant al, N Engl J Med 2014;370(14):1286- 1297) The normal value (reference range) for this assay is negative. COLOGUARD RE-SCREENING RECOMMENDATION: Periodic colorectal cancer screening is an important part of preventive healthcare for asymptomatic individuals at average risk for colorectal cancer. Following a negative Cologuard result, the [place] Cancer Society and U.S. Multi-Society Task Force screening guidelines recommend a Cologuard re-screening interval of 3 years. References: [place] [employer] Society Guideline for Colorectal Cancer Screening: https://www.cancer.org/cancer/dtycx-ihqfxk-ecgadb/canpbjfsa-pjihcyaiw-jqvvabt/ac s-rec ommendations.html.; Thony DK, Mesha CR, Cuauhtemoc LopezK, Colorectal Cancer Screening: Recommendations for Physicians and Patients from the U.S. Multi-Society Task Force on Colorectal Cancer Screening , Am J Gastroenterology 2017; 112:4849-3439. TEST DESCRIPTION: Composite algorithmic analysis of stool [...] (Tori Grant al, N Engl J Med 2014;370(14):9666-3568.) Cologuard may produce a false negative or false positive result (no colorectal cancer or precancerous polyp present at colonoscopy follow up). A negative Cologuard test result does not guarantee the absence of CRC or advanced adenoma (pre-cancer). The current Cologuard screening interval is every 3 years. ([place] Cancer Society and U.S. Multi-Society Task Force). Cologuard performance data in a 10,000 patient pivotal study using colonoscopy as the reference method can be accessed at the following location: www.Combat Stroke.com/results. Additional description of the Cologuard test process, warnings and precautions can be found at www.PrecisionDemand.com. Stool 05/19/2025 8:00 AM CDT 05/20/2025 9:17 PM CDT us Carrillo Martínez MD LAB BODY FLUIDS AND STOOLS ORDERABLES Final Result [employer] (CLIA #:[id number]) [address] [place] [address] * Dexa Axial Skeleton Bone Density 1 or 2 Site (12/13/2023 2:14 PM STOCK DIGGER) Anatomical Region Laterality Modality Body N/A Radiographic Tamiko ging Narrative 12/13/2023 3:20 PM STOCK DIGGER Patient Name: Shea Baires Date of : 1950 Date of scan: 12/13/2023 Bone mineral density was performed on a HoloSabrix Discovery Densitometer. Based on machine cross-calibration and [...] mineral density scan were prepared by Nathaly Jolley(Pina) CBDT who is accredited by the International Society of Clinical Densitometry. The overall patient assessment and scan interpretation were performed by Hermelinda Warner MD who is certified by the International Society of Clinical Densitometry. [id number] Farrah Valencia MD PhD IMG DXA PROCEDURES [...] GENERAL ORDERABLES Final Result Performing Organization Address City/[place] [address] [address] Department [place] [address] from Last 3 Months or Most Recently Relevant to Health Maintenance Insurance AETNA MEDICARE AETNA MEDICARE AETNA MEDICARE Care Teams Prior Authorization Nurse Relationship Specialty Start Date End Date Carrillo Martínez MD [address] [facility] [address] [place] [address] PCP - General Family Medicine 06/25/23 Ciro Ko MD [address] [place] [address] Internal Medicine 04/19/18 [place] [address] [address] [facility] [address] [place] [address] Consulting Physician Neurology 06/25/23 [place] [address] [address] [facility] [address] [place] [address] Consulting Physician Pain Management 06/25/23 [place] [address] [address] [facility] [address] [place] [address] Physician Dedicated Regional Driver Physician Dedicated Regional Driver 09/12/23 Ella Zhang MD [address] [place] [address] Consulting Physician Rheumatology 12/31/23 Christen Gonzalez MD PhD [address] [facility] [address] [place] [address] Radiation Oncologist Radiation Oncology 03/19/24
--- OUTSIDE RECORDS SUMMARY | 2025-09-15 18:28 | XMS_ITS | Encounter Summary ---
Author Organization [facility] Healthcare Address [address] [place] [address] Care Team Providers Care Head Golf Coach Name Role Phone Ciro Ko MD Unavailable [phone] Carrillo Martínez MD Primary Care Provider Kassie STONE MD, Carlos M. Unavailable [phone] Jigra Fishman MD Unavailable Juan Ocampo Unavailable Ella Zhang MD Unavailable Christen Gonzalez MD PhD Unavailable [phone] Reason for Visit * Reason Onset Date Comments Diarrhea 09/15/2025 Rectal Pain 09/15/2025 Encounter Details Date Type Department Care Team (Late st Contact Info) Description 09/15/2025 Nurse Triage [facility] Medical Group Primary Care at [address] [phone] Carrillo Martínez MD [address] [place] [address] [address] [place] [address] Social History Tobacco Use Types Packs/Day Years [...] 08/09/2023 How often do you attend chur or sabianist services? Never 08/09/2023 Do you belong to any clubs o r organizations such as baptism groups, unions, fraternal or athletic groups, or [...] staff should administer the PHQ-9) 0 07/27/2025 [facility] - Occupational Stress Questionnaire Answer Date [...] place to sleep or slept in a usp (including now)? No 08/09/2023 Personal Safety Answer Date Recorded Have you ever been in or are you currently in a harmful physical or emotional relationship or is someone making you feel afraid or unsafe? Denies 11/22/2023 Comments No Sex and Gender Information Value Date Recorded Sex Assigned at Not on file Legal Sex Female 2:19 AM CUSTOMER SALES ADVISOR Gender Identity Female 09/05/2021 6:53 AM CUSTOMER SALES ADVISOR Sexual Orientation Not on file documented as of this encounter Miscellaneous Notes * Telephone Encounter - Sary Bunn - 09/15/2025 2:05 PM CST Call Back Caller???s Concern: patient called back regarding symptoms stated she has not received call back from office yet, would like to speak with office as soon as possible Does message need to be routed? 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 States she has not had a full, regular bowel movement since Sunday, but since yesterday has been getting the urge to go but was unable to. She states that she did a Fleetz enema then started to have liquid stool in the middle of the night. Mild bleeding from hemorrhoids yesterday but none today. States approx a half hour ago she took Imodiumfor the diarrhea. Reports drinking plenty of water throughout the day and does use Metamucil as a fiber supplement as well as incorporates fresh fruits and veggies in her diet. She has been using Prep aration H, Witch Chelsie and suppositories for the hemorrhoids. Reports having to have hemorrhoids lanced several years ago. Denies abdominal pain, discomfort, cramping, bloating. Advised if she experiences worsening rectal pain, moderate to severe rectal bleeding, stomach discomfort, bloating. Advised if symptoms worsen, she needs to be seen in the ER. States unable to come in for appointment. Seeking advice from provider. Please reach out to patient regarding symptoms listed above and further recommendations. Stated shedidn't think she could come into the office. Recommended ER for worsening symptoms. Disposition See Today in Office Reason for Disposition Leaking stool No Initial Assessment on file. No Additional Information on file. Protocols Used [id number] OMER SALES ADVISOR * Telephone Encounter - Trinidad Arango RN - 09/15/2025 12:12 PM CST Regarding: severe pain butt, Hemorrhoids, watery Diarrhea (uncontrolled) ----- Message from January sent at 09/15/2025 12:12 PM CUSTOMER SALES ADVISOR ----- Symptom Based Call Chief Complaint(s): severe pain butt, Hemorrhoids, watery Diarrhea (uncontrolled) Duration: 2 days What type of symptom(s) is the patient experiencing? Red Flag. Is the patient concerned they are experiencing a medical emergency requiring an ambulance? No Additional Comments: hemorrhoids for 4 days, the uncontrolled diarrhea since yesterday. She states the pain comes and the diarrhea just happens she does not even feel it coming on. Does message need to be routed? Yes-Action Needed OMER SALES ADVISOR documented in this encounter Plan of Treatment Not on file documented as of this encounter Visit Diagnoses Not on filedocumented in this encounter Care Teams Head Golf Coach Relationship Specialty Start Date End Date Carrillo Martínez MD [address] [place], [place] [id number] PCP - General Family Medicine 06/25/23 Ciro Ko MD [address] [place] [address] Internal Medicine 04/19/18 [place] [address] [address] [facility] [address] [place] [address] Consulting Physician Neurology 06/25/23 [place] [address] [facility] [address] [place] [address] Consulting Physician Pain Management 06/25/23 [place] [address] [facility] [address] [place] [address] Physician O And M Supervisor Physician O And M Supervisor 09/12/23 Ella Zhang MD [address] [place], [place] [id number] Consulting Physician Rheumatology 12/31/23 Christen Gonzalez MD PhD [address] [facility] [address] [place], [place] [address] Radiation Oncologist Radiation Oncology 03/19/24 documented as of this encounter
--- OUTSIDE RECORDS SUMMARY | 2025-09-15 18:28 | XMS_ITS | Encounter Summary ---
Author Organization [facility] Address [address] [facility] [place] [address] Care Team Providers Care Sql Dba Name Role Phone Arik INGRAM MD, Apolinar Unavailable [phone] Timbo Esquivel MD Primary Care Provider [phone] Ciro Ko MD Primary Care Provider + [phone] Vicente Butts MD Unavailable [phone] Timbo Esquivel MD Primary Care Provider [phone] Ciro Ko MD Primary Care Provider + [phone] Donis Jacksno DO Primary Care Provider [phone] Carrillo Martínez MD Primary Care Provider + [phone] Encounter Details Date Type Department Care Team (Late st Contact Info) Description 12/24/2019 Lab Requisition [facility] Care DermPath Lab [address] [facility] [place] [address] Asael Garcia MD [address] [place] [address] Social History Tobacco Use Types Packs/Day Years Used Date Smoking Tobacco: Former Cigarettes Alcohol Use Standard Drinks/Week Comments Yes 0 (1 standard drink = 0.6 oz pur e alcohol) SOCIALLY Comments No Sex and Gender Information Value Date Recorded Sex Assigned at Not on file Legal Sex Female 6:39 AM 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 SKIN, mid back: BASAL CELL CARCINOMA, SUPERFICIAL MULTIFOCAL (C44.519) 0 2:44 PM CDT DERMATOPATHOLOGY LABORATORY at 1444 CDT Clinical History BCCA. Path # [id number]. 0 2:44 PM CDT DERMATOPATHOLOGY LABORATORY Gross Description Specimen A: Received is one formalin filled container labeled with the patient's name and designated mid back. The specimen consists of a shave biopsy measuring [id number]. Jar 0. 0 2:44 PM CDT DERMATOPATHOLOGY [...] characteristic determined by the Dermatopathology Laboratory at [facility], directed by Dr. Deirdre Plummer. These tests need not be, and therefore are not, approved by the [place] Food and Drug Administration. The tests are used for clinical purposes. Billing Codes Specimen Charges Stain Charges 54155 1 0 2:44 PM CDT DERMATOPATHOLOGY LABORATORY Embedded Images 0 2:44 PM CDT DERMATOPATHOLOGY LABORATORY Pathology/Cytolog y TISSUE SPECIMEN FROM SKIN / Unknown 12/22/2019 12/24/2019 9:15 AM CDT Asael Garcia MD LAB - PATHOLOGY/CYTOLOGY ORDER JACQUELINE Final Result DERMATOPATHOLOGY LABORATORY [facility] - Department of Dermatology [address] [place] [address], 5th Floor Lab [address] [place], [place] [id number] [place] [address] documented in this encounter Visit Diagnoses Not on filedocumented in this encounter Care Teams Sql Dba Relationship Specialty Start Date End Date Timbo Esquivel MD [address] [place] [address] PCP - General 12/24/19 10/05/20 Ciro Ko MD [address] [place] [address] PCP - General Internal Medicine 10/06/20 02/15/21 Timbo Esquivel MD [address] [facility] [address] [place] [address] PCP - General 02/16/21 02/23/21 Ciro Ko MD [address] [place] [address] PCP - General Internal Medicine 02/24/21 10/26/22 Donis Jackson DO [address] [place] [address] PCP - General Family Medicine 10/27/22 12/11/23 Carrillo Martínez MD [address] [facility] [address] [place] [address] PCP - General Family Medicine 12/12/23 [place] [address] [place] [address] Orthopedic Surgery 05/05/13 [place] [address] [place] [address] Physical Medicine and Rehabilitation 10/06/20 documented as of this encounter
--- OUTSIDE RECORDS SUMMARY | 2025-09-15 18:28 | XMS_ITS | Encounter Summary ---
Author Organization [facility] Address [address] [facility] [place] [address] Care Team Providers Care Building Construction Contractor Name Role Phone Arik INGRAM MD, Apolinar Unavailable [phone] Vicente Butts MD Unavailable [phone] Ciro Ko MD Primary Care Provider + [phone] Donis Jackson DO Primary Care Provider [phone] Carrillo Martínez MD Primary Care Provider + [phone] Encounter Details Date Type Department Care Team (Late st Contact Info) Description 05/31/2021 [facility] Outpatient Visit [facility]NAL [facility] DEPT Unknown, Provider Social History Tobacco Use Types Packs/Day Years Used Date Smoking Tobacco: Former Cigarettes Smokeless Tobacco: Never Alcohol Use Standard Drinks/Week Comments Yes 0 (1 standard drink = 0.6 oz pur e alcohol) SOCIALLY Comments No Sex and Gender Information Value Date Recorded Sex Assigned at Not on file Legal Sex Female 6:39 AM ACCOUNT RECEIVABLE ASSOCIATE Gender Identity Female 03/30/2021 5:24 PM CDT [...] on filedocumented in this encounter Care Teams Building Construction Contractor Relationship Specialty Start Date End Date Ciro Ko MD [address] [place] [address] PCP - General Internal Medicine 02/24/21 10/26/22 Donis Jackson DO [facility] [place] [address] PCP - General Family Medicine 10/27/22 12/11/23 Carrillo Martínez MD [address] [facility] [address] [place] [address] PCP - General Family Medicine 12/12/23 [place] [address] [place] [address] Orthopedic Surgery 05/05/13 [place] [address] [place] [address] Physical Medicine and Rehabilitation 10/06/20 documented as of this encounter
--- OUTSIDE RECORDS SUMMARY | 2025-09-15 18:28 | XMS_ITS | Encounter Summary ---
Author Organization [facility] Address [address] [facility] [place] [address] Care Team Providers Care Lamp Shades Supervisor Name Role Phone Arik INGRAM MD, Apolinar Unavailable [phone] Vicente Butts MD Unavailable [phone] Ciro Ko MD Primary Care Provider + [phone] Donis Jackson DO Primary Care Provider [phone] Carrillo Martínez MD Primary Care Provider + [phone] Encounter Details Date Type Department Care Team (Late st Contact Info) Description 07/06/2021 [facility] Outpatient Visit EXTERNAL NON-[facility] DEPT Unknown, Provider Social History Tobacco Use Types Packs/Day Years Used Date Smoking Tobacco: Former Cigarettes Smokeless Tobacco: Never Alcohol Use Standard Drinks/Week Comments Yes 0 (1 standard drink = 0.6 oz pur e alcohol) SOCIALLY Comments No Sex and Gender Information Value Date Recorded Sex Assigned at Not on file Legal Sex Female 6:39 AM QUALITY PROCESS ENGINEER Gender Identity Female 03/30/2021 5:24 PM [...] on filedocumented in this encounter Care Teams Lamp Shades Supervisor Relationship Specialty Start Date End Date Ciro Ko MD [address] [place] [address] PCP - General Internal Medicine 02/24/21 10/26/22 Donis Jackson DO [facility] [place] [address] PCP - General Family Medicine 10/27/22 12/11/23 Carrillo Martínez MD [address] [facility] [address] [place] [address] PCP - General Family Medicine 12/12/23 [place] [address] [place] [address] Orthopedic Surgery 05/05/13 [place] [address] [place] [address] Physical Medicine and Rehabilitation 10/06/20 documented as of this encounter
--- OUTSIDE RECORDS SUMMARY | 2025-09-15 18:28 | XMS_ITS | Encounter Summary ---
Author Organization [facility] Address [address] [facility] [place] [address] Care Team Providers Care Director Of Community Center Name Role Phone Arik INGRAM MD, Apolinar Unavailable [phone] Timbo Esquivel MD Primary Care Provider [phone] Ciro Ko MD Primary Care Provider + [phone] Vicente Butts MD Unavailable [phone] Timbo Esquivel MD Primary Care Provider [phone] Ciro Ko MD Primary Care Provider + [phone] Donis Jackson DO Primary Care Provider [phone] Carrillo Martínez MD Primary Care Provider + [phone] Encounter Details Date Type Department Care Team (Late st Contact Info) Description 01/30/2020 Lab Requisition [facility] Care DermPath Lab [address] [facility] [place] [phone] Asael Garcia MD [address] [place] [address] Social History Tobacco Use Types Packs/Day Years Used Date Smoking Tobacco: Former Cigarettes Alcohol Use Standard Drinks/Week Comments Yes 0 (1 standard drink = 0.6 oz pur e alcohol) SOCIALLY Comments No Sex and Gender Information Value Date Recorded Sex Assigned at Not on file Legal Sex Female 6:39 AM SITE ACQUISITION MANAGER Gender Identity Female 03/30/2021 5:24 PM CDT [...] AM CDT) Case Report Dermatopathology Report Case: [id number] Authorizing Provider: Asael Garcia MD Collected: 01/30/2020 12:00 AM Ordering Location: [facility] DermPath Lab Received: 01/30/2020 02:19 PM Pathologist: [...] sup BCCA (multifocal). Check margins. Path # [id number]. 0 3:10 PM CDT DERMATOPATHOLOGY LABORATORY Gross Description Specimen A: Received is one formalin filled container labeled with the patient's name and designated mid back. The specimen consists of a non-oriented ellipse of skin measuring [id number]. The epidermal surface consists of a centrally [...] characteristic determined by the Dermatopathology Laboratory at [facility], directed by Dr. Deirdre Plummer. These tests need not be, and therefore are not, approved by the [place] Food and Drug Administration. The tests are used for clinical purposes. Billing Codes Specimen Charges Stain Charges 76912 1 0 3:10 PM CDT DERMATOPATHOLOGY LABORATORY Embedded Images 0 3:10 PM CDT DERMATOPATHOLOGY LABORATORY Pathology/Cytolog y TISSUE SPECIMEN FROM SKIN / Unknown 01/30/2020 01/30/2020 2:19 PM CDT Asael Garcia MD LAB - PATHOLOGY/CYTOLOGY ORDER JACQUELINE Final Result DERMATOPATHOLOGY LABORATORY [facility] - Department of Dermatology [facility] 5th Floor Lab [address] [phone] documented in this encounter Visit Diagnoses Not on filedocumented in this encounter Care Teams Director Of Community Center Relationship Specialty Start Date End Date Timbo Esquivel MD [address] [facility] [address] [facility] 204 [place] [address] PCP - General 12/24/19 10/05/20 Ciro Ko MD [address] [place] [address] PCP - General Internal Medicine 10/06/20 02/15/21 Timbo Esquivel MD [address] [facility] [address] [facility] 204 [place] [address] PCP - General 02/16/21 02/23/21 Ciro Ko MD [address] [place] [address] PCP - General Internal Medicine 02/24/21 10/26/22 Donis Jackson DO [address] [place] [phone] PCP - General Family Medicine 10/27/22 12/11/23 Carrillo Martínez MD [address] [facility] 130 [place] [address] PCP - General Family Medicine 12/12/23 [place] [address] [address] [place] [address] Orthopedic Surgery 05/05/13 [place] [address] [place] [address] Physical Medicine and Rehabilitation 10/06/20 documented as of this encounter
--- OUTSIDE RECORDS SUMMARY | 2025-09-15 18:28 | XMS_ITS | Encounter Summary ---
Author Organization [facility] Address [address] [facility] [address] Care Team Providers Care Superintendent Ammunition Storage Name Role Phone Arik INGRAM MD, Apolinar Unavailable [phone] Vicente Butts MD Unavailable [phone] Timbo Esquivel MD Primary Care Provider [phone] Ciro Ko MD Primary Care Provider + [phone] Donis Jackson DO Primary Care Provider [phone] Carrillo Martínez MD Primary Care Provider + [phone] Encounter Details Date Type Department Care Team (Late st Contact Info) Description 02/17/2021 Lab Requisition [facility] Care DermPath Lab [address] [facility], [place] [address] Asael Garcia MD [address] [place] [address] Social History Tobacco Use Types Packs/Day Years Used Date Smoking Tobacco: Former Cigarettes Smokeless Tobacco: Never Alcohol Use Standard Drinks/Week Comments Yes 0 (1 standard drink = 0.6 oz pur e alcohol) SOCIALLY Comments No Sex and Gender Information Value Date Recorded Sex Assigned at Not on file 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 Path# [id number]. B: BCCA. Path# [id number]. 4:56 PM CDT DERMATOPATHOLOGY LABORATORY Gross Description Specimen A: Received is one formalin filled container labeled with the patient's name and designated left mid back. The specimen consists of a shave biopsy measuring [id number]. Jar 0. Specimen B: Received is one formalin filled container labeled with the patient's name and designated right mid back. The specimen consists of a shave biopsy measuring [id number]. Jar 0. 4:56 PM CDT DERMATOPATHOLOGY LABORATORY [...] characteristic determined by the Dermatopathology Laboratory at [facility], directed by Dr. Deirdre Plummer. These tests need not be, and therefore are not, approved by the [place] Food and Drug Administration. The tests are used for clinical purposes. Billing Codes Specimen Charges Stain Charges 51606 30935 1 1 4:56 PM CDT DERMATOPATHOLOGY LABORATORY Embedded Images 4:56 PM CDT DERMATOPATHOLOGY LABORATORY Pathology/Cytology TISSUE SPECIMEN FROM SKIN / Unknown 02/15/2021 3:33 AM CDT 02/17/2021 7:37 AM CDT Miscellaneous samples (specimen) TISSUE SPECIMEN FROM SKIN / Unknown 02/15/2021 3:33 AM CDT 02/17/2021 7:37 AM CDT us Asael Garcia MD LAB - PATHOLOGY/CYTOLOGY ORDER JACQUELINE Final Result DERMATOPATHOLOGY LABORATORY [facility] - Department of Dermatology [facility] Medicine [address] [facility], 3rd Floor [address] [phone] documented in this encounter Visit Diagnoses Not on filedocumented in this encounter Care Teams Superintendent Ammunition Storage Relationship Specialty Start Date End Date Timbo Esquivel MD [address] [place] [address] PCP - General 02/16/21 02/23/21 Ciro Ko MD [address] [place] [address] PCP - General Internal Medicine 02/24/21 10/26/22 Donis Jackson DO [address] [place] [address] PCP - General Family Medicine 10/27/22 12/11/23 Carrillo Martínez MD [address] [place] [address] PCP - General Family Medicine 12/12/23 [place] [address] [place] [address] Orthopedic Surgery 05/05/13 [place] [address] [place], [place] [phone] Physical Medicine and Rehabilitation 10/06/20 documented as of this encounter
--- OUTSIDE RECORDS SUMMARY | 2025-09-15 18:28 | XMS_ITS ---
Author Organization [facility] Address [address] [place] [address] Care Team Providers Care Sider Mechanic Name Role Phone Ciro Ko MD Unavailable [phone] Carrillo Martínez MD Primary Care Provider Kassie STONE MD, Lucio Gilmore Unavailable Jigar Fishman MD Unavailable uJan Ocampo Unavailable Ella Zhang MD Unavailable Christen Gonzalez MD PhD Unavailable [phone] Active Problems Problem Noted Date Diagnosed Date Anxiety 07/27/2025 Aortic valve insufficiency, acquired 07/27/2025 Chronic left-sided low back pain without sciatic a 07/27/2025 Left sided sciatica 07/27/2025 Menopausal and female climacteric states 025 Polyarticular arthritis 07/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 07/27/2025 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
== END 2025-09-15 18:31 | disposition left against medical advice (07) ==
PROVIDERS: PCP Family Medicine
DX: K62.89 Other specified diseases of anus and rectum (principal)
CPT/HCPCS: 99199

== ENCOUNTER 2025-09-16 13:25 | Emergency (ER) | payer MEDICARE, SELFPAY ==
--- NOTE | ~2025-09-16 | CT_ITS ---
CT abdomen pelvis w con Clinical History: constipated, painful BM . Comparison: None Technique: Axial images lung bases to symphysis pubis IV contrast information not listed in PACS Coronal, sagittal reformats CT images acquired with automatic exposure control for dose reduction DLP: 195 mGy-cm Findings: Lung bases: Clear. Visualized heart and pericardium: Unremarkable. Liver: Enlarged. Steatosis. Gallbladder: Unremarkable. Spleen: Unremarkable. Pancreas: Unremarkable. Adrenal glands: Unremarkable. Kidneys: Right kidney- No hydronephrosis. No renal stones. Left kidney- No hydronephrosis. No renal stones. Distal esophagus/stomach: Small hiatal hernia. Small bowel loops: Normal caliber and wall thickness. Colon: Rectal wall thickening. Normal appendix, right upper quadrant. Colonic interposition between liver and diaphragm. Stool-filled sigmoid. Presacral stranding. Nodes: No enlarged nodes. Peritoneum: No ascites. No free air. Urinary bladder: Unremarkable. Uterus: Unremarkable. Adnexa: No masses. Bones: No acute bony abnormality. Soft tissues: Unremarkable. Aorta: No aneurysm or dissection. IVC: Unremarkable. Main portal vein/SMV/splenic vein: Patent. IMPRESSION: 1. Proctitis. 2. 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 3. Large stool ball within sigmoid colon. Reviewed, dictated and finalized at location R. 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
--- NOTE | 2025-09-16 13:27 | ED_ITS ---
HPI - General Adult General Chief complaint: Unspecified Stated complaint: hemorrhoids, constipation Time Seen by Provider: 09/16/25 13:28 Source: patient Mode of arrival: ambulatory Limitations: no limitations History of Present Illness HPI narrative: Patient presents with report of constipation and pain when trying to have a bowel movement x2 days. She tried a Fleets enema yesterday with no relief. Having rectal pain but no abdominal pain. She took a stool softener this morning at 5am. She is concerned for hemorrhoids. Her last colonoscopy was approximately 10 years ago and has used Cologuard since. History of hemorrhoids. She was having a small amount of diarrheal stool when she tried to have a bowel movement yesterday so took 4 doses of Immodium. Not on opiates. This has never happened before. No nausea/vomiting/fever/chills. No previous abdominal surgeries. States she is not passing flatus. Last oral intake was some melon this morning. Not on anticoagulation. Does not follow with a commercial drone software developer. No bloody stools or blood on toilet paper. Related Data Home Medications ?Medication ?Instructions ?Recorded ?Confirmed ?Last Taken ?Type gabapentin 600 mg tablet 600 mg PO DAILY 01/23/2210/06 Unknown History duloxetine 60 mg capsule,delayed 60 mg PO DAILY 10/26/22 Unknown History release duloxetine 60 mg capsule,delayed 60 mg PO DAILY 10/26/22 Unknown History release famotidine 20 mg tablet (Acid 20 mg PO DAILY 10/26/22 10/26/22 Unknown History Commercial Lines Account Assistant (famotidine)) Allergies Allergy/AdvReac Type Severity Reaction Status Date / Time No Known Allergies Allergy Mild Verified 09/16/25 13:39 [facility] Past Medical History Medical History (Updated 09/17/25 @ 16:14 by Ebla Mays MD) Hemorrhoid High blood pressure Rheumatoid arthritis Surgical History Surgical History History of colonoscopy approx 2014; Cologuard screening since History of knee replacement 03/2008 and 09/2008 Family History Family History Father Carcinoma of colon Hypertension Mother Carcinoma of colon Hypertension Sibling Family history of cardiac disorder Social History Social History Smoking status: Never smoker Alcohol intake: current Lack of Transportation: No Lack of Food: Never True Current Housing: I Have Housing Concerned About Future Housing: No Difficulty Paying Gas/Electric Bills: No Difficulty Paying for Meds: No Currently Unemployed: No Education: Master's Degree or Higher Difficulty w/ Childcare or Family Care: No Exam 2 Narrative: GENERAL: Well-appearing, well-nourished, and in no acute distress. HEAD: Normocephalic, atraumatic. EYES: Non injected, non icteric ENT: Nares clear, no rhinorrhea or epistaxis. Gross auditory acuity intact. NECK: Supple. No meningismus. CHEST: Speaking in full sentences. No respiratory distress. HEART: Regular rate and rhythm. . ABDOMEN: Soft, nondistended. No rigidity or guarding. Not peritoneal EXTREMITIES: Normal range of motion. No lower extremity edema. SKIN: Warm, dry, no rash. NEURO: No focal deficits. Alert and oriented. Answering questions. Following commands. Normal speech without aphasia or dysarthria. PSYCH: Normal mood and affect. REINA: Performed with pierre Adnrew as wrapper stripper/assistant property manager. Patient has an external nonthrombosed hemorrhoid at the 5/6 o'clock position. ERythema of the rectum without fissure. Tenderness with insertion of gloved finger but no stool ball in the rectal vault. Normal nonbloody stool on gloved finger. FOBT/guiaic negative Course Vital Signs Vital signs: Vital Signs Temperature 98.1 F 09/16/25 13:30 Pulse Rate 75 09/16/25 13:30 Respiratory Rate 16 09/16/25 13:30 Blood Pressure 142/93 H 09/16/25 13:30 Pulse Oximetry 100 09/16/25 13:30 Oxygen Delivery Room Air 09/16/25 13:30 Temperature 98.1 F 09/16/25 13:30 Pulse Rate 74 09/16/25 17:47 Respiratory Rate 15 09/16/25 17:47 Blood Pressure 140/92 H 09/16/25 17:47 Pulse Oximetry 100 09/16/25 17:47 Oxygen Delivery Room Air 09/16/25 13:30 MDM MDM Narrative Medical decision making narrative: Patient presents with constipation and pain when trying to have a bowel movement for the past 2 days. Because she had some diarrheal stool when attempting to have a bowel movement yesterday she took 4 doses of Immodium. Took a stool softener at 5am today. In the emergency department she is afebrile with acceptable vital signs, mild hypertension. Mild abnormalities on the differential but otherwise without marked anemia thrombocytopenia, leukocytosis. She has mild hyponatremia which does represent a 6 mEq drop from previous although that was several years ago. Her total bilirubin is also elevated so direct and indirect are ordered. Lactic acid normal. 500cc IV fluids ordered. Ddx indirect hyperbilirubinemia Over production of bilirubin (hemolytic anemia), reduced uptake (cirrhosis or congestive hepatopathy), impaired conjugation, biliary obstruction, hereditary disease (Gilbert syndrome, Elvira-Sam syndrome, Crigler-Tom syndrome), medication side effect (allopurinol, anabolic steroids, antibiotics, antimalarials, etc.) CT as below. Discussed with patient. Attempted digital disimpaction at bedside but no large stool ball in rectal vault. Discussed with clinical services professional GI Dr Waite who notes that this is unlikely stecoral colitis. He suspects the hyperbilirubinemia to be Gilbert. No role for antibiotics given no leukocytosis or lactic acidosis. Recommends Miralax 17gm q6 and soap reena enema in the ED and follow up outpatient. TSH normal. Ketonuria in urine but otherwise without signs of infection. Soap suds enema was attempted but RN notes that she only had 200 in before she was writhing on the bedside commode and saying she could not tolerate it. For this reason, bisacodyl suppository ordered along with lidocaine jelly that can be applied to rectum for pain relief. Will discharge with comprehensive bowel regimen. Patient does become very agitated at the time of discharge. She is angry that she was sitting on the bedside commode in my own filth and had wanted another bedside commode. She was frustrated that the entirety of the plan had not been conveyed but it is at this time. We extensively discussed the multifactoral bowel regimen with mulltiple medications/options including first line and second line plans. Advised follow up with GI. She has otherwise been stable for discharge; vital signs essentially unchanged. Differential Diagnosis Differential Diagnosis: hemorrhoid (internal/external); anal fissure; drug/medication induced constipation; obstipation; small bowel obstruction; malignancy; proctitis; Medical Records I have reviewed the following patient records and this information was taken into consideration when formulating the assessment and plan.: previous labs Lab Data MDM Lab Attestation statement: I personally reviewed the patient's lab results. 09/16/25 13:53 09/16/25 13:53 Labs: Lab Results 09/16/25 09/16/25 Range/Units 13:53 15:01 WBC 7.4 (4.5-10.0) K/mm3 RBC 3.79 L (4.2-5.4) M/mm3 Hgb 12.5 (12.0-15.0) g/dL Hct 36.1 L (37.0-47.0) % MCV 95.3 (80-100) fl MCH 33.0 (26-34) pg MCHC 34.6 (32-36) g/dl RDW 12.4 (11.5-14.5) % Plt Count 220 (150-375) k/mm3 MPV 7.8 (7.4-10.4) fl Immature Gran % (Auto) 0.3 (0-0.5) % Neut % (Auto) 78.9 H (45.5-73.1) % Lymph % (Auto) 12.7 L (18.3-44.2) % [place] % (Auto) 6.9 (2.6-8.5) % Eos % (Auto) 0.4 (0-4.4) % Baso % (Auto) 0.8 (0.2-1.2) % Lymph # (Auto) 0.94 (0.9-3.2) K/mm3 [place] # (Auto) 0.5 (0.1-0.6) K/mm3 Eos # (Auto) 0.0 (0-0.3) K/mm3 Baso # (Auto) 0.1 (0.0-0.1) K/mm3 Abs Immat Gran (auto) 0.02 (0.00-0.031) K/mm3 Absolute Neuts (auto) 5.9 (1.3-6.7) K/mm3 Absolute Nucleated RBC 0.000 (0.0-0.012) K/mm3 Nucleated RBC % 0.0 (0.0-0.2) % Sodium 131 L (137-145) mmol/L Potassium 4.5 (3.4-5.0) mmol/L Chloride 101 (98-107) mmol/L Carbon Dioxide 23 (22-30) mmol/L Anion Gap 7 (4-12) mmol/L BUN 13 (7-17) mg/dL Creatinine 0.63 L (0.7-1.0) mg/dL Estim Creat Clear Calc 63 ml/min Estimated GFR > 60 (59 - ) Glucose 101 (65-110) mg/dL Lactic Acid 1.0 (0.7-2.0) mmol/L Calcium 8.7 (8.4-10.2) mg/dL Total Bilirubin 2.3 H (0.2-1.3) mg/dL Direct Bilirubin 0.0 (0-0.3) mg/dL Indirect Bilirubin 2.0 H (0-1.1) mg/dL AST 24 (14-36) U/L ALT 18 (6-35) U/L Alkaline Phosphatase 44 (38-126) U/L Total Protein 6.8 (6.3-8.2) g/dL Albumin 4.2 (3.5-5.1) g/dL TSH 2.220 (0.465-4.680) uIU/mL Urine Color Yellow (Yellow) Urine Appearance Clear (Clear) Urine pH 8.0 (5.0-9.0) Ur Specific [place] > 1.045 H (1.001-1.035) Urine Protein Negative (Negative) mg/dL Urine Glucose (UA) Negative (Negative) mg/dL Urine Ketones 1+ H (Negative) mg/dL Ur Blood (Man) Negative (Negative) Urine Nitrate Negative (Negative) Urine Bilirubin Negative (Negative) Urine Urobilinogen 0.2 (<2.0) mg/dL Leukocyte Esterase Rfl Negative (Negative) NORM/UL Imaging Data Radiologist's impression: ITS Impressions Abdomen/Pelvis CT 09/16/25 14:39 IMPRESSION: 1. Proctitis. 2. 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 3. Large stool ball within sigmoid colon. Discharge Plan Discharge Clinical Impression: Hyponatremia, Pain with bowel movements, Proctitis, Constipation Patient Disposition: Home Condition: Stable Instructions: Antibiotic Form, Polyethylene Glycol 3350 (By mouth), Constipation (DC), Proctitis (ED), High Fiber Diet (ED), Hyponatremia (ED) Additional Instructions: It is important that you take the polyethylene glycol as prescribed, every 6 hours. Drink plenty of water to maintain your hydration and incorporate fiber foods into your diet including prune does/prune juice. Additional bowel regimen prescriptions have been provided such as psyllium/Metamucil/fiber, magnesium citrate as a laxative, rectal suppository, and an enema to help produce a bowel movement to evacuate your bowels. Follow-up with gastroenterology. Return to the emergency department any new or worsening symptoms. Patient Language: Sami Prescriptions: New polyethylene glycol 3350 17 gram/dose powder 17 g PO Q6H Qty: 119 0RF psyllium husk [Metamucil] 0.4 gram capsule 0.4 g PO DAILY Qty: 30 0RF magnesium citrate Solution 150 ml PO DAILY PRN (Reason: constipation) Qty: 296 0RF bisacodyl 10 mg suppository 10 mg RECTAL DAILY PRN (Reason: constipation) Qty: 12 0RF mineral oil [Pure and Gentle (mineral oil)] Enema 118 ml RECTAL DAILY PRN (Reason: constipation) Qty: 6384 0RF Rx Instructions: discard any unused portion No Action gabapentin 600 mg tablet 600 mg PO DAILY famotidine [Acid Commercial Lines Account Assistant (famotidine)] 20 mg tablet 20 mg PO DAILY duloxetine 60 mg capsule,delayed release(DR/EC) 60 mg PO DAILY duloxetine 60 mg capsule,delayed release(DR/EC) 60 mg PO DAILY lisinopril 30 mg tablet 30 mg PO DAILY Qty: 90 1RF Follow-up/Referrals: Tanya,Carrillo Lyman MD [Primary Care Provider, Unknown] Bradley Waite MD [Physician, Gastroenterology] Stand Alone Forms: Work/School Release IP Time of Disposition: 16:52
[2025-09-16 13:30] VITALS: BP 142/93; PULSE 75; RESP 16; TEMP 36.7; O2SAT 100
[2025-09-16 13:33] VITALS: BP 142/93; PULSE 78; RESP 15; O2SAT 100
[2025-09-16 13:38] VITALS: BP 142/93; PULSE 77; RESP 14; O2SAT 99
[2025-09-16 14:00] LABS: Hematocrit 36.1 % (37.0-47.0); Hemoglobin 12.5 g/dL (12.0-15.0); Immature Granulocyte Percent A 0.3 % (0-0.5); Lymphocytes Absolute Auto 0.94 K/mm3 (0.9-3.2); Mean Corpuscular HGB Conc 34.6 g/dl (32-36); Mean Corpuscular Hemoglobin 33.0 pg (26-34); Mean Corpuscular Volume 95.3 fl (80-100); Nucleated Red Blood Cells Absolute Auto 0.000 K/mm3 (0.0-0.012); Nucleated Red Blood Cells Perc 0.0 % (0.0-0.2); Platelet Count Result 220 k/mm3 (150-375); Red Blood Count 3.79 M/mm3 (4.2-5.4); White Blood Count 7.4 K/mm3 (4.5-10.0)
[2025-09-16 14:08] LABS: Alanine Aminotransferase 18 U/L (6-35); Albumin Level 4.2 g/dL (3.5-5.1); Alkaline Phosphatase 44 U/L (38-126); Anion Gap 7 mmol/L (4-12); Aspartate Amino Transferase 24 U/L (14-36); Bilirubin,Total 2.3 mg/dL (0.2-1.3); Blood Urea Nitrogen 13 mg/dL (7-17); Calcium 8.7 mg/dL (8.4-10.2); Carbon Dioxide 23 mmol/L (22-30); Chloride 101 mmol/L (98-107); Estimated CRCL calculation 63 ml/min; Estimated Glomerular Filt Rate > 60; Glucose 101 mg/dL (65-110); Potassium 4.5 mmol/L (3.4-5.0); Sodium 131 mmol/L (137-145); Total Protein 6.8 g/dL (6.3-8.2)
[2025-09-16] MEDS: SODIUM CHLORIDE 0.9% IV 500 ML 999 ML IV CONT (14:36)
--- OUTSIDE RECORDS SUMMARY | 2025-09-16 14:40 | XMS_ITS | Encounter Summary ---
Author Organization [facility] Health Address [address] [place] [address] Care Team Providers Care Concrete Pipe Making Machine Operator Name Role Phone Arik INGRAM MD, Apolinar Unavailable [phone] Vicente Butts MD Unavailable [phone] Ciro Ko MD Primary Care Provider [phone] Donis Jackson DO Primary Care Provider [phone] Carrillo Martínez MD Primary Care Provider [phone] Encounter Details Date Type Department Care Team (Late st Contact Info) Description 07/06/2021 [facility] Outpatient Visit EXTERNAL NON-[facility] DEPT Unknown, Provider Social History Tobacco Use Types Packs/Day Years Used Date Smoking Tobacco: Former Cigarettes Smokeless Tobacco: Never Alcohol Use Standard Drinks/Week Comments Yes 0 (1 standard drink = 0.6 oz pur e alcohol) SOCIALLY Comments No Sex and Gender Information Value Date Recorded Sex Assigned at Not on file Legal Sex Female 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 Gender Identity Female 03/30/2021 5:24 PM CDT [...] on filedocumented in this encounter Care Teams Concrete Pipe Making Machine Operator Relationship Specialty Start Date End Date Ciro Ko MD [address] [place] [address] PCP - General Internal Medicine 02/24/21 10/26/22 Donis Jackson DO [facility] [place] [address] PCP - General Family Medicine 10/27/22 12/11/23 Carrillo Martínez MD [address] [facility] [address] [place] [id number] PCP - General Family Medicine 12/12/23 [place] [address] [place] [address] Orthopedic Surgery 05/05/13 [place] [address] [place] [address] Physical Medicine and Rehabilitation 10/06/20 documented as of this encounter
--- OUTSIDE RECORDS SUMMARY | 2025-09-16 14:40 | XMS_ITS | Encounter Summary ---
Author Organization [facility] Address [address] [place] [address] Phone Care Team Providers Care Social Worker Masters Name Role Phone Ciro Ko MD Unavailable [phone] Carrillo Martínez MD Primary Care Provider Kassie STONE MD, Carlos M. Unavailable [phone] Jigar Fishman MD Unavailable Juan Ocampo Unavailable [phone] Ella Zhang MD Unavailable Christen Gonzalez MD PhD Unavailable [phone] Encounter Details Date Type Department Care Team [...] declined 08/09/2023 How often do you attend [facility] or jew services? Never 08/09/2023 Do you belong to any clubs o r organizations such as episcopalian groups, unions, fraternal or athletic groups, or [...] Recorded Patient Health Questionnaire-2 Score 0 08/09/2023 [facility] - Occupational [...] place to sleep or slept in a snf (including now)? No 08/09/2023 Personal Safety Answer Date Recorded Have you ever been in or are you currently in a harmful physical or emotional relationship or is someone making you feel afraid or unsafe? Denies 11/22/2023 Comments No Sex and Gender Information Value Date Recorded Sex Assigned at Not on file Legal Sex Female 2:19 AM NIGHT SHIFT SUPERVISOR Gender Identity Female 09/05/2021 6:53 AM NIGHT SHIFT SUPERVISOR Sexual Orientation Not on file documented as [...] on filedocumented in this encounter Care Teams Social Worker Masters Relationship Specialty Start Date End Date Carrillo Martínez MD [address] [place] [address] PCP - General Family Medicine 06/25/23 Ciro Ko MD [address] [place] [address] Internal Medicine 04/19/18 [place] [address] [address] [place] [address] Consulting Physician Neurology 06/25/23 [place] [address] [facility] [address] [place] [address] Consulting Physician Pain Management 06/25/23 [place] [address] [facility] [address] [place] [address] Physician Greaser Helper Physician Greaser Helper 09/12/23 Ella Zhang MD [address] [facility] [address] [facility] [address] [place] [address] Consulting Physician Rheumatology 12/31/23 Christen Gonzalez MD PhD [address] [facility] [address] [place] [address] Radiation Oncologist Radiation Oncology 03/19/24 documented as of this encounter
--- OUTSIDE RECORDS SUMMARY | 2025-09-16 14:40 | XMS_ITS | Encounter Summary ---
Author Organization [facility] Address [address] [place] [address] Phone Care Team Providers Care Launchman Name Role Phone Ciro Ko MD Unavailable [phone] Carrillo Martínez MD Primary Care Provider Kassie STONE MD, Carlos M. Unavailable [phone] Jigar Fishman MD Unavailable Juan Ocampo Unavailable [phone] Ella Zhang MD Unavailable Christen Gonzalez MD PhD Unavailable [phone] Encounter Details Date Type Department Care Team [...] declined 08/09/2023 How often do you attend [facility] or sikhism services? 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 Gender Identity Female 09/05/2021 6:53 AM RAILWAY STATION MANAGER Sexual Orientation Not on file documented as [...] on filedocumented in this encounter Care Teams Launchman Relationship Specialty Start Date End Date Carrillo Martínez MD [address] [place] [address] PCP - General Family Medicine 06/25/23 Ciro Ko MD [address] [place] [address] Internal Medicine 04/19/18 [place] [address] [place] [address] Consulting Physician Neurology 06/25/23 [place] [address] [address] [place] [address] Consulting Physician Pain Management 06/25/23 [place] [address] [address] [facility] [address] [place] [address] Physician Saddle And Side Wire Stitcher Physician Saddle And Side Wire Stitcher 09/12/23 Ella Zhang MD [address] [place], [place] [id number] Consulting Physician Rheumatology 12/31/23 Christen Gonzalez MD PhD [address] [facility] [address] [place], [place] [address] Radiation Oncologist Radiation Oncology 03/19/24 documented as of this encounter
--- OUTSIDE RECORDS SUMMARY | 2025-09-16 14:40 | XMS_ITS | Encounter Summary ---
Author Organization [facility] Healthcare Address [address] [place] [address] Care Team Providers Care Protective Signal Installer Helper Name Role Phone Ciro Ko MD Unavailable [phone] Carrillo Martínez MD Primary Care Provider Kassie STONE MD, Carlos M. Unavailable [phone] Jigar Fishman MD Unavailable [phone] Juan Ocampo Unavailable Ella Zhang MD Unavailable Christen Gonzalez MD PhD Unavailable [phone] Reason for Visit * Reason Onset Date Comments Diarrhea 09/15/2025 Rectal Pain 09/15/2025 Encounter Details Date Type Department Care Team (Late st Contact Info) Description 09/15/[address] [facility] Primary Care at [address] [address] Carrillo Martínez MD [address] [place] [address] [address] [place] [address] Social History Tobacco Use Types [...] How often do you attend chur or judaism services? Never 08/09/2023 Do you belong to any clubs o r organizations such as uatsdin groups, unions, fraternal or athletic groups, or [...] staff should administer the PHQ-9) 0 07/27/2025 [facility] - Occupational Stress Questionnaire Answer Date Recorded [...] place to sleep or slept in a senior care (including now)? No 08/09/2023 Personal Safety Answer Date Recorded Have you ever been in or are you currently in a harmful physical or emotional relationship or is someone making you feel afraid or unsafe? Denies 11/22/2023 Comments No Sex and Gender Information Value Date Recorded Sex Assigned at Not on file Legal Sex Female 2:19 AM ASSISTANT Gender Identity Female 09/05/2021 6:53 AM ASSISTANT Sexual Orientation Not on file documented as of this encounter Miscellaneous Notes * Telephone Encounter - Aarti Ortiz - 09/16/2025 10:55 AM CST Call Back Caller???s Concern: Patient called adamant to speak with practice nurse as soon as possible as she is very concerned she has not heard back yet from office; HAMMER SMITH did advise still awaiting response from provider. Patient is adamant to send another message requesting urgent call back. Please advise with patient by phone. Does message need to be routed? Yes-Action Needed STANT * Telephone Encounter - Aarti Ortiz - 09/16/2025 8:44 AM CST Call Back Caller???s Concern: Patient called to follow up on symptoms request; HAMMER SMITH advised urgent message wassent to practice and awaiting provider response. HAMMER SMITH advised that practice will contact patient back as soon as possible. Patient verbalized understanding and will await call back. Does message need to be routed? No STANT * Telephone Encounter - Sary Bunn. - 09/15/2025 2:05 PM CST Call Back Caller???s Concern: patient called back regarding symptoms stated she has not received call back from office yet, would like to speak with office as soon as possible Does message need to be routed? Yes-Action Needed STANT * Telephone Encounter - Trinidad Arango RN - 09/15/2025 12:16 PM CST Reason for Conversation Diarrhea and Rectal Pain Background Patient calling into manufacturing engineering technician stating that she has been experiencing moderate [...] No Additional Information on file. Protocols Used Pngqspapelik-Barrl-OB STANT * Telephone Encounter - Trinidad Arango RN - 09/15/2025 12:12 PM CST Regarding: severe pain butt, Hemorrhoids, watery Diarrhea (uncontrolled) ----- Message from January sent at 09/15/2025 12:12 PM ASSISTANT ----- Symptom Based Call Chief Complaint(s): severe [...] message need to be routed? Yes-Action Needed STANT documented in this encounter Plan of Treatment Not on file documented as of this encounter Visit Diagnoses Not on filedocumented in this encounter Care Teams Protective Signal Installer Helper Relationship Specialty Start Date End Date Carrillo Martínez MD [address] [facility] [address] [place] [address] PCP - General Family Medicine 06/25/23 Ciro Ko MD [address] [place] [address] Internal Medicine 04/19/18 [place] [address] [address] [facility] [address] [place] [address] Consulting Physician Neurology 06/25/23 [place] [address] [address] [facility] [address] [place] [address] Consulting Physician Pain Management 06/25/23 [place] [address] [facility] [address] [place] [address] Physician Assistant Laboratory Director Physician Assistant Laboratory Director 09/12/23 Ella Zhang MD [address] [facility] [address] [place] [address] Consulting Physician Rheumatology 12/31/23 Christen Gonzalez MD PhD [address] [facility] [address] [place] [address] Radiation Oncologist Radiation Oncology 03/19/24 documented as of this encounter
--- OUTSIDE RECORDS SUMMARY | 2025-09-16 14:40 | XMS_ITS ---
Author Organization [facility] Address [address] [place] [address] Care Team Providers Care Hammer Driver Name Role Phone Ciro Ko MD Unavailable [phone] Carrillo Martínez MD Primary Care Provider Kassie STONE MD, Lucio Gilmore Unavailable Jigar Fishman MD Unavailable [phone] Juan Ocampo Unavailable Ella Zhang MD Unavailable [phone] Christen Gonzalez MD PhD Unavailable Active Problems Problem Noted Date Diagnosed Date Anxiety 07/27/2025 Aortic valve insufficiency, acquired 07/27/2025 Chronic left-sided low back pain without sciatic a 07/27/2025 Left sided sciatica 07/27/2025 Menopausal and female climacteric states 025 Polyarticular arthritis 07/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 07/27/2025 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
--- OUTSIDE RECORDS SUMMARY | 2025-09-16 14:40 | XMS_ITS | Clinical Summary ---
Author Organization [facility] Address [address] [place] [address] Care Team Providers Care Agricultural Engineering Teacher Name Role Phone Ciro Ko MD Unavailable [phone] Carrillo Martínez MD Primary Care Provider Kassie STONE MD, Carlos M. 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 12/02/2022 Cancer Staging:Pathologic stage from 11/22/2023:Stage Unknown(pTis (DCIS), pNX, cM0, G3, ER+, IA: Not Assessed, HER2: Not Assessed) - Signed [...] Department Care Team Description 09/15/2025 Nurse Triage [facility] Primary Care at [address] [address] Carrillo Martínez MD 09/02/2025 10:40 AM PRODUCE LABORER Office Visit [facility] Medicine Rheumatology [address] [place] [address] 5th [place] [address] [place] [address] Ella Zhang MD Primary osteoarthritis involving multiple joints (Primary Dx); Chondrocalcinosis 07/27/2025 9:45 AM CDT Office Visit [facility] Primary Care at [address] [address] Carrillo Martínez MD Sciatica, left side (Primary Dx); Need for vaccination 07/27/2025 Orders Only [facility] Medical [facility] Primary Care at [address] [address] Carrillo Martínez MD Mild aortic stenosis 07/23/2025 Nurse Triage [facility] Primary Care at [address] [phone] Carrillo Martínez MD 07/23/2025 Nurse Triage [facility] Primary Care at [address] [phone] Stan Martino RN 07/01/2025 Results Follow-Up [facility] Primary Care at [address] [phone] Carrillo Martínez MD Screening Mammogram Bilateral W Darci 06/29/2025 1:14 PM CDT - 06/29/2025 11:59 PM CDT Hospital Encounter [facility] Advanced Medicine Breast Imaging [facility] Advanced Medicine ([facility]) [address] [place] [address] Screening mammogram for breast cancer Discharge Disposition: Discharge to home or self care 06/22/2025 2:00 PM CDT Therapy [facility] Medicine Physical Therapy [address] Floor [address] [place] [address] Sneha Francois, DPDelma Pelvic floor [...] SURGERY 12/13/2022 - 01/12/2023 Right Done at [facility] [place] BREAST BIOPSY 08/28/2023 [...] examination without abnormal finding Visit for routine hub cutter exam - (Added by TW Conv) Rheumatoid [...] often do you attend chur ch or protestant services? Never 08/09/2023 Do you belong to any clubs o r organizations such as advent groups, unions, fraternal or athletic groups, or [...] staff should administer the PHQ-9) 0 07/27/2025 [facility] Occup[facility] ional [facility] - Occupational Stress [...] on file Legal Sex Female 2:19 AM PRODUCE LABORER Gender Identity Female 09/05/2021 6:53 AM PRODUCE LABORER Sexual Orientation Not on file Obstetrics History [...] Comments Blood Pressure 123/81 09/02/2025 10:41 AM PRODUCE LABORER Pulse 70 09/02/2025 10:41 AM PRODUCE LABORER Temperature 36.7 C (98.1 F) 09/02/2025 10:41 AM PRODUCE LABORER Respiratory Rate 18 07/27/2025 9:56 AM CDT Oxygen Saturation 98% 07/27/2025 9:56 AM CDT Inhaled Oxygen Concentration - - Weight 59.9 kg (132 lb) 09/02/2025 10:41 AM PRODUCE LABORER Height 167.6 cm (5' 6) 09/02/2025 10:41 AM PRODUCE LABORER Body Mass Index 21.31 09/02/2025 10:41 AM PRODUCE LABORER Plan of Treatment Health Maintenance Due Date [...] history exists Medical Devices Implanted Type Area Field Software Engineer Device Identifier Shelf Expiration Date Model / Serial / Lot [employer] Eviva 13cm Identifier Biopsy Site [id number] - [id number] Implanted:Qty: 1 on 08/28/2023 at [facility] [employer] [id number] [facility] [id number] [employer] Peripheral Vascular Bandariatas 20ga 20cm 9cm Beaded Needle Breast Wire Localization [id number] - [id number] Implanted:Qty: 1 on 11/22/2023 at [facility] Left: Breast [employer]ascular [id number] / / Procedures Procedure Name Priority Date/Time [...] Read Routine (OP Routine) 12/13/2023 2:14 PM PRODUCE LABORER Ductal carcinoma in situ (DCIS) of left [...] CDT) Stool DNA - Cologuard Negative Negative [employer] (CLIA #:[id number]) Comment: The Cologuard (TM) test was performed [...] cancer. Following a negative Cologuard result, the [place] Cancer Society and U.S. Multi-Society Task Force screening guidelines recommend a Cologuard re-screening interval of 3 years. References: [place] [employer] Guideline for Colorectal Cancer Screening: https://www.cancer.org/cancer/sykth-ccfleg-vlbpqr/qscfitnkc-iwsvtqkfo-qiatiyw/ac s-rec ommendations.html.; Thony DK, Mesha CR, Cuauhtemoc LopezK, Colorectal Cancer Screening: Recommendations for Physicians and Patients from the U.S. Multi-Society Task Force on Colorectal Cancer Screening , Am J Gastroenterology 2017; 112:2414-7133. TEST DESCRIPTION: Composite algorithmic analysis of stool [...] (Tori Grant al, N Engl J Med 2014;370(14):9639-1363.) Cologuard may produce a false negative or false positive result (no colorectal cancer or precancerous polyp present at colonoscopy follow up). A negative Cologuard test result does not guarantee the absence of CRC or advanced adenoma (pre-cancer). The current Cologuard screening interval is every 3 years. ([place] Cancer Society and U.S. Multi-Society Task Force). Cologuard performance data in a 10,000 patient pivotal study using colonoscopy as the reference method can be accessed at the following location: www.[employer].com/results. Additional description of the Cologuard test process, warnings and precautions can be found at www.[employer].com. Stool 05/19/2025 8:00 AM CDT 05/20/2025 9:17 PM CDT us Carrillo Martínez MD LAB BODY FLUIDS AND STOOLS ORDERABLES Final Result [employer] (CLIA #:[id number]) [address] [address] * Dexa Axial Skeleton Bone Density 1 or 2 Site (12/13/2023 2:14 PM PRODUCE LABORER) Anatomical Region Laterality Modality Body N/A Radiographic Tamiko ging Narrative 12/13/2023 3:20 PM PRODUCE LABORER Patient Name: Shea Baires Date of : 1950 Date of scan: 12/13/2023 Bone mineral density was performed on a [employer] Discovery Densitometer. Based on machine cross-calibration and [...] by the International Society of Clinical Densitometry. [id number] Farrah Valencia MD PhD IMG DXA PROCEDURES [...] Final Result Performing Organization Address City/[place] [address] [place] [address] from Last 3 Months or Most Recently Relevant to Health Maintenance Insurance AETNA MEDICARE AETNA MEDICARE AETNA MEDICARE Care Teams Agricultural Engineering Teacher Relationship Specialty Start Date End Date Carrillo Martínez MD [address] [facility] [address] [place] [address] PCP - General Family Medicine 06/25/23 Ciro Ko MD [address] [place] [address] Internal Medicine 04/19/18 [place] [address] [facility] [address] [place] [address] Consulting Physician Neurology 06/25/23 [place] [address] [facility] [facility] [address] [place] [address] Consulting Physician Pain Management 06/25/23 [place] [address] [facility] [address] [place] [address] Physician Upward Bound Director Physician Upward Bound Director 09/12/23 Ella Zhang MD [address] [place] [address] Consulting Physician Rheumatology 12/31/23 Christen Gonzalez MD PhD [address] [facility] [address] [place] [address] Radiation Oncologist Radiation Oncology 03/19/24
--- OUTSIDE RECORDS SUMMARY | 2025-09-16 14:40 | XMS_ITS | Encounter Summary ---
Author Organization [facility] Health Address [address] [facility] [place] [address] Care Team Providers Care Dedicated Driver Name Role Phone Arik INGRAM MD, Apolinar Unavailable [phone] Vicente Butts MD Unavailable [phone] Ciro Ko MD Primary Care Provider + [phone] Donis Jackson DO Primary Care Provider [phone] Carrillo Martínez MD Primary Care Provider + [phone] Encounter Details Date Type Department Care Team (Late st Contact Info) Description 05/04/2021 [facility] Outpatient Visit EXTERNAL NON-[facility] DEPT Unknown, Provider Social History Tobacco Use Types Packs/Day Years Used Date Smoking Tobacco: Former Cigarettes Smokeless Tobacco: Never Alcohol Use Standard Drinks/Week Comments Yes 0 (1 standard drink = 0.6 oz pur e alcohol) SOCIALLY Comments No Sex and Gender Information Value Date Recorded Sex Assigned at Not on file Legal Sex Female 6:39 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 Gender Identity Female 03/30/2021 5:24 PM [...] on filedocumented in this encounter Care Teams Dedicated Driver Relationship Specialty Start Date End Date Ciro Ko MD [address] [place] [address] PCP - General Internal Medicine 02/24/21 10/26/22 Donis Jackson DO [address] [place] [phone] PCP - General Family Medicine 10/27/22 12/11/23 Carrillo Martínez MD [address] [facility] [address] [place] [address] PCP - General Family Medicine 12/12/23 [place] [address] [address] [place] [address] Orthopedic Surgery 05/05/13 [place] [address] [address] [place] [address] Physical Medicine and Rehabilitation 10/06/20 documented as of this encounter
--- OUTSIDE RECORDS SUMMARY | 2025-09-16 14:40 | XMS_ITS | Encounter Summary ---
Author Organization [facility] Health Address [address] [facility] [place] [address] Care Team Providers Care Flour Inspector Name Role Phone Arik INGRAM MD, Apolinar Unavailable [phone] Vicente Butts MD Unavailable [phone] Ciro Ko MD Primary Care Provider + [phone] Donis Jackson DO Primary Care Provider [phone] Carrillo Martínez MD Primary Care Provider + [phone] Encounter Details Date Type Department Care Team (Late st Contact Info) Description 05/31/2021 [facility] Outpatient Visit EXTERNAL NON-[facility] DEPT Unknown, Provider Social History Tobacco Use Types Packs/Day Years Used Date Smoking Tobacco: Former Cigarettes Smokeless Tobacco: Never Alcohol Use Standard Drinks/Week Comments Yes 0 (1 standard drink = 0.6 oz pur e alcohol) SOCIALLY Comments No Sex and Gender Information Value Date Recorded Sex Assigned at Not on file Legal Sex Female 6:39 AM MOLDER SWEEP Gender Identity Female 03/30/2021 5:24 PM CDT Sexual Orientation Not on file Occupation Industry Job Start Date Job End Date RETIRED Not on file Not on file Not on file documented as of this encounter Functional Status * Is person deaf or have serious hearing difficulty? Answer Date of Assessment Author No 12/06/2015 10:09 AM Marily Mnok RN * Is person blind or have [...] Date Author No 12/06/2015 10:09 AM Marily oMnk RN documented in this encounter Plan of Treatment Not on file documented as of this encounter Visit Diagnoses Not on filedocumented in this encounter Care Teams Flour Inspector Relationship Specialty Start Date End Date Ciro Ko MD [address] [place] [address] PCP - General Internal Medicine 02/24/21 10/26/22 Donis Jackson DO [facility] [place] [address] PCP - General Family Medicine 10/27/22 12/11/23 Carrillo Martínez MD [address] [facility] [address] [place] [address] PCP - General Family Medicine 12/12/23 [place] [address] [address] [place] [address] Orthopedic Surgery 05/05/13 [place] [address] [address] [place] [address] Physical Medicine and Rehabilitation 10/06/20 documented as of this encounter
--- OUTSIDE RECORDS SUMMARY | 2025-09-16 14:40 | XMS_ITS | Encounter Summary ---
Author Organization [facility] Health Address [address] [facility] [place] [address] Care Team Providers Care Dry Cell Sealer Name Role Phone Arik INGRAM MD, Apolinar Unavailable [phone] Vicente Butts MD Unavailable [phone] Ciro Ko MD Primary Care Provider + [phone] Donis Jackson DO Primary Care Provider [phone] Carrillo Martínez MD Primary Care Provider + [phone] Encounter Details Date Type Department Care Team (Late st Contact Info) Description 07/06/[address] [facility] Outpatient Visit EXTERNAL NON-[facility] DEPT Unknown, Provider Social History Tobacco Use Types Packs/Day Years Used Date Smoking Tobacco: Former Cigarettes Smokeless Tobacco: Never Alcohol Use Standard Drinks/Week Comments Yes 0 (1 standard drink = 0.6 oz pur e alcohol) SOCIALLY Comments No Sex and Gender Information Value Date Recorded Sex Assigned at Not on file Legal Sex Female 6:39 AM BLACK TOPPER Gender Identity Female 03/30/2021 5:24 PM CDT [...] on filedocumented in this encounter Care Teams Dry Cell Sealer Relationship Specialty Start Date End Date Ciro Ko MD [address] [place] [address] PCP - General Internal Medicine 02/24/21 10/26/22 Donis Jackson DO [facility] [place] [address] PCP - General Family Medicine 10/27/22 12/11/23 Carrillo Martínez MD [address] [facility] [address] [place] [address] PCP - General Family Medicine 12/12/23 [place] [address] [address] [place] [address] Orthopedic Surgery 05/05/13 [place] [address] [address] [place] [address] Physical Medicine and Rehabilitation 10/06/20 documented as of this encounter
--- OUTSIDE RECORDS SUMMARY | 2025-09-16 14:40 | XMS_ITS | Encounter Summary ---
Author Organization [facility] Address [address] [place] [address] Care Team Providers Care Iron Carrier Name Role Phone Arik INGRAM MD, Apolinar Unavailable [phone] Vicente Butts MD Unavailable [phone] Ciro Ko MD Primary Care Provider + [phone] Donis Jackson DO Primary Care Provider [phone] Carrillo Martínez MD Primary Care Provider + [phone] Encounter Details Date Type Department Care Team (Late st Contact Info) Description 08/05/2021 [facility] Outpatient Visit EXTERNAL NON-[facility] DEPT Unknown, Provider Social History Tobacco Use Types Packs/Day Years Used Date Smoking Tobacco: Former Cigarettes Smokeless Tobacco: Never Alcohol Use Standard Drinks/Week Comments Yes 0 (1 standard drink = 0.6 oz pur e alcohol) SOCIALLY Comments No Sex and Gender Information Value Date Recorded Sex Assigned at Not on file Legal Sex Female 6:39 AM COMMERCIAL DRIVER'S LICENSE DRIVER Gender Identity Female 03/30/2021 5:24 PM CDT [...] on filedocumented in this encounter Care Teams Iron Carrier Relationship Specialty Start Date End Date Ciro Ko MD [address] [place] [address] PCP - General Internal Medicine 02/24/21 10/26/22 Donis Jackson DO [facility] [place] [address] PCP - General Family Medicine 10/27/22 12/11/23 Carrillo Martínez MD [address] [facility] [address] [place] [address] PCP - General Family Medicine 12/12/23 [place] [address] [address] [place] [address] Orthopedic Surgery 05/05/13 [place] [address] [address] [place] [address] Physical Medicine and Rehabilitation 10/06/20 documented as of this encounter
--- OUTSIDE RECORDS SUMMARY | 2025-09-16 14:40 | XMS_ITS | Encounter Summary ---
Author Organization [facility] Health Address [address] [facility] [place] [address] Care Team Providers Care Marketing Analytics Analyst Name Role Phone Arik INGRAM MD, Apolinar Unavailable [phone] Vicente Butts MD Unavailable [phone] Ciro Ko MD Primary Care Provider + [phone] Donis Jackson DO Primary Care Provider [phone] Carrillo Martínez MD Primary Care Provider + [phone] Encounter Details Date Type Department Care Team [...] on file Legal Sex Female 6:39 AM SENIOR COLDFUSION DEVELOPER Gender Identity Female 03/30/2021 5:24 PM CDT [...] on filedocumented in this encounter Care Teams Marketing Analytics Analyst Relationship Specialty Start Date End Date Ciro Ko MD [address] [place] [address] PCP - General Internal Medicine 02/24/21 10/26/22 Donis Jackson DO [address] [place] [address] PCP - General Family Medicine 10/27/22 12/11/23 Carrillo Martínez MD [address] [facility] [address] [place] [address] PCP - General Family Medicine 12/12/23 [place] [address] [address] [place] [address] Orthopedic Surgery 05/05/13 [place] [address] [address] [place] [address] Physical Medicine and Rehabilitation 10/06/20 documented as of this encounter
--- OUTSIDE RECORDS SUMMARY | 2025-09-16 14:41 | XMS_ITS | Encounter Summary ---
Author Organization [facility] Address [address] [place] [address] Care Team Providers Care Textile Conservator Name Role Phone Arik INGRAM MD, Apolinar Unavailable [phone] Timbo Esquivel MD Primary Care Provider [phone] Ciro Ko MD Primary Care Provider + [phone] Vicente Butts MD Unavailable [phone] Timbo Esquivel MD Primary Care Provider [phone] Ciro Ko MD Primary Care Provider + [phone] Donis Jackson DO Primary Care Provider [phone] Carrillo Martínez MD Primary Care Provider + [phone] Encounter Details Date Type Department Care Team (Late st Contact Info) Description 08/19/2020 Lab Requisition [facility] Care DermPath Lab [address] [facility] [place] [address] Asael Garcia MD [address] [place] [address] Social History Tobacco Use Types Packs/Day Years Used Date Smoking Tobacco: Former Cigarettes Alcohol Use Standard Drinks/Week Comments Yes 0 (1 standard drink = 0.6 oz pur e alcohol) SOCIALLY Comments No Sex and Gender Information Value Date Recorded Sex Assigned at Not on file Legal Sex Female 6:39 AM FOUNTAIN CLERK Gender Identity Female 03/30/2021 5:24 PM CDT [...] Comments DERMATOPATHOLOGY Routine 08/17/2020 12:0 0 AM FOUNTAIN CLERK documented in this encounter Results * DERMATOPATHOLOGY (08/17/2020 12:00 AM FOUNTAIN CLERK) Case Report Dermatopathology Report Case: [id number] Authorizing Provider: Asael Garcia MD Collected: 08/17/2020 12:00 AM Ordering Location: [facility] DermPath Lab Received: 08/19/2020 06:34 AM Pathologist: Yessi Chau MD Specimens: A) - Skin, right upper thigh B) - Skin, right axilla 0 2:50 PM FOUNTAIN CLERK DERMATOPATHOLOGY LABORATORY Final Diagnosis Specimen A. SKIN, right upper thigh: LICHEN PLANUS-LIKE KERATOSIS (BENIGN LICHENOID KERATOSIS) (L82.1) Specimen B. SKIN, right axilla: BASAL CELL CARCINOMA, NODULAR TYPE (C44.519) 0 2:50 PM FOUNTAIN CLERK DERMATOPATHOLOGY LABORATORY at 1450 FOUNTAIN CLERK Clinical History A: BCC vs SCCA. Path # [id number]. B: BCC vs SCCA. Path # [id number]. 0 2:50 PM [facility] DERMATOPATHOLOGY LABORATORY Gross Description Specimen A: Received is one formalin filled container labeled with the patient's name and designated right upper thigh. The specimen consists of a shave biopsy measuring [id number]. Jar 0. Specimen B: Received is one formalin filled container labeled with the patient's name and designated right axilla. The specimen consists of a shave biopsy measuring [id number]. Jar 0. 0 2:50 PM [facility] DERMATOPATHOLOGY LABORATORY Microscopic Description Specimen A. SKIN, right upper thigh: The epidermis is mildly acanthotic. There is a lichenoid infiltrate with vacuolar changes of basilar keratinocytes and scattered necrotic keratinocytes. Specimen B. SKIN, right axilla: Within the dermis there are aggregates of basaloid cells with a high nuclear to cytoplasmic ratio and peripheral palisading. 0 2:50 PM [facility] DERMATOPATHOLOGY LABORATORY Disclaimer An external and internal positive and negative controls are appropriate for the histochemical, immunohistochemical and immunofluorescence stain(s) in this case (if any), except where stated explicitly. The performance characteristics of the stain(s) cited in this report were developed and its performance characteristic determined by the Dermatopathology Laboratory at [facility], directed by Dr. Deirdre Plummer. These tests need not be, and therefore are not, approved by the [place] Food and Drug Administration. The tests are used for clinical purposes. Billing Codes Specimen Charges Stain Charges 94615 17763 1 1 0 2:50 PM [facility] DERMATOPATHOLOGY LABORATORY Embedded Images 0 2:50 PM [facility] DERMATOPATHOLOGY LABORATORY Pathology/Cytology TISSUE SPECIMEN FROM SKIN / Unknown 08/17/2020 08/19/2020 6:34 AM FOUNTAIN CLERK Miscellaneous samples (specimen) TISSUE SPECIMEN FROM SKIN / Unknown 08/17/2020 08/19/2020 6:34 AM FOUNTAIN CLERK us Asael Garcia MD LAB - PATHOLOGY/CYTOLOGY ORDER JACQUELINE Final Result DERMATOPATHOLOGY LABORATORY [facility] - Department of Dermatology [facility] [address] [facility], [address]rd Floor [address] [phone] documented in this encounter Visit Diagnoses Not on filedocumented in this encounter Care Teams Textile Conservator Relationship Specialty Start Date End Date Timbo Esquivel MD [address] [facility] [address] [place] [address] PCP - General 12/24/19 10/05/20 Ciro Ko MD [address] [place] [address] PCP - General Internal Medicine 10/06/20 02/15/21 Timbo Esquivel MD [address] [facility] [address] [facility] [address] [place] [address] PCP - General 02/16/21 02/23/21 Ciro Ko MD [address] [place] [address] PCP - General Internal Medicine 02/24/21 10/26/22 Donis Jackson DO [facility]7 [place] [address] PCP - General Family Medicine 10/27/22 12/11/23 Carrillo Martínez MD [address] [facility] [address] [place] [address] PCP - General Family Medicine 12/12/23 [place] [address] [address] Orthopedic Surgery 05/05/13 [place] [address] [place] [address] Physical Medicine and Rehabilitation 10/06/20 documented as of this encounter
--- OUTSIDE RECORDS SUMMARY | 2025-09-16 14:41 | XMS_ITS | Encounter Summary ---
Author Organization [facility] Address [address] [place] [address] Care Team Providers Care Section Leader Screen Printing Name Role Phone Arik INGRAM MD, Apolinar Unavailable [phone] Timbo Esquivel MD Primary Care Provider [phone] Ciro Ko MD Primary Care Provider + [phone] Vicente Butts MD Unavailable [phone] Timbo Esquivel MD Primary Care Provider [phone] Ciro Ko MD Primary Care Provider + [phone] Donis Jackson DO Primary Care Provider [phone] Carrillo Martínez MD Primary Care Provider + [phone] Encounter Details Date Type Department Care Team (Late st Contact Info) Description 12/24/2019 Lab Requisition 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 SKIN, mid back: BASAL CELL CARCINOMA, SUPERFICIAL MULTIFOCAL (C44.519) 0 2:44 PM CDT DERMATOPATHOLOGY LABORATORY at 1444 CDT Clinical History BCCA. Path # [id number]. 0 2:44 PM CDT DERMATOPATHOLOGY LABORATORY Gross Description Specimen A: Received is one formalin filled container labeled with the patient's name and designated mid back. The specimen consists of a shave biopsy measuring 2g1n8vr. Jar 0. 0 2:44 PM CDT DERMATOPATHOLOGY [...] characteristic determined by the Dermatopathology Laboratory at [facility], directed by Dr. Deirdre Plummer. These tests need not be, and therefore are not, approved by the [place] Food and Drug Administration. The tests are used for clinical purposes. Billing Codes Specimen Charges Stain Charges 60604 1 0 2:44 PM CDT DERMATOPATHOLOGY LABORATORY Embedded Images 0 2:44 PM CDT DERMATOPATHOLOGY LABORATORY Pathology/Cytolog y TISSUE SPECIMEN FROM SKIN / Unknown 12/22/2019 12/24/2019 9:15 AM CDT Asael Garcia MD LAB - PATHOLOGY/CYTOLOGY ORDER JACQUELINE Final Result DERMATOPATHOLOGY LABORATORY [facility] - Department of Dermatology [address] [place] [address], 5th Floor Lab [address] [place], [place] [address] [place] [address] documented in this encounter Visit Diagnoses Not on filedocumented in this encounter Care Teams Section Leader Screen Printing Relationship Specialty Start Date End Date Timbo Esquivel MD [address] [place] [address] PCP - General 12/24/19 10/05/20 Ciro Ko MD [address] [place] [phone] PCP - General Internal Medicine 10/06/20 02/15/21 Timbo Esquivel MD [address] [facility] [address] [place] [phone] PCP - General 02/16/21 02/23/21 Ciro Ko MD [address] [place] [phone] PCP - General Internal Medicine 02/24/21 10/26/22 Donis Jackson DO [address] [place] [address] PCP - General Family Medicine 10/27/22 12/11/23 Carrillo Martínez MD 2 [facility] [address] [place] [address] PCP - General Family Medicine 12/12/23 [place] [address] [place] [address] Orthopedic Surgery 05/05/13 [place] [address] [place] [address] Physical Medicine and Rehabilitation 10/06/20 documented as of this encounter
--- OUTSIDE RECORDS SUMMARY | 2025-09-16 14:41 | XMS_ITS | Encounter Summary ---
Author Organization [facility] Address [address] [facility] [place] [address] Care Team Providers Care Ammonia Box Operator Name Role Phone Unknown, Provider Primary Care Provider Unavaila cristin Elise IV, MD, Apolinar Unavailable [phone] Timbo Esquivel MD Primary Care Provider [phone] Ciro Ko MD Primary Care Provider + [phone] Vicente Butts MD Unavailable [phone] Timbo Esquivel MD Primary Care Provider [phone] Ciro Ko MD Primary Care Provider + [phone] Donis Jackson DO Primary Care Provider [phone] Carrillo Martínez MD Primary Care Provider + [phone] Encounter Details Date Type Department Care Team (Late st Contact Info) Description 05/12/2013 Therapy Visit [facility]TERNAL [place] [address] [address] Social History Tobacco Use Types Packs/Day Years Used Date Smoking Tobacco: Never Assessed Comments Unknown Sex and Gender Information Value Date Recorded Sex Assigned at Not on file 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 Gender Identity Female 03/30/2021 5:24 PM CDT Sexual Orientation Not on file documented as of this encounter Plan of Treatment Not on file documented as of this encounter Visit Diagnoses Not on filedocumented in this encounter Care Teams Ammonia Box Operator Relationship Specialty Start Date End Date Unknown, Provider PCP - General 09/16/08 03/03/14 Timbo Esquivel MD [address] [facility] [address] [facility] [address] [place] [address] PCP - General 12/24/19 10/05/20 Ciro Ko MD [address] [place] [address] PCP - General Internal Medicine 10/06/20 02/15/21 Timbo Esquivel MD [address] [facility] [address] [facility] [address] [place] [address] PCP - General 02/16/21 02/23/21 Ciro Ko MD [address] [place] [address] PCP - General Internal Medicine 02/24/21 10/26/22 Donis Jackson DO [address] [place] [phone] PCP - General Family Medicine 10/27/22 12/11/23 Carrillo Martínez MD 2 [facility] [address] [place] [address] PCP - General Family Medicine 12/12/23 [place] [address] [address] [place] [address] Orthopedic Surgery 05/05/13 [place] [address] [place] [address] Physical Medicine and Rehabilitation 10/06/20 documented as of this encounter"
--- OUTSIDE RECORDS SUMMARY | 2025-09-16 14:41 | XMS_ITS | Encounter Summary ---
Author Organization [facility] Address [address] [facility] [place] [address] Care Team Providers Care Leveling Machine Operator Name Role Phone Unknown, Provider Primary Care Provider Unavaila cristin Elise IV, MD, Apolinar Unavailable [phone] Timbo Esquivel MD Primary Care Provider [phone] Ciro Ko MD Primary Care Provider + [phone] Vicente Butts MD Unavailable [phone] Timbo Esquivel MD Primary Care Provider [phone] Ciro Ko MD Primary Care Provider + [phone] Donis Jackson DO Primary Care Provider [phone] Carrillo Martínez MD Primary Care Provider + [phone] Encounter Details Date Type Department Care Team (Late st Contact Info) Description 06/24/2013 Therapy Visit [facility]TERNAL [place] [address] [address] Social History Tobacco Use Types Packs/Day Years Used Date Smoking Tobacco: Never Assessed Comments Unknown Sex and Gender Information Value Date Recorded Sex Assigned at Not on file 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 Gender Identity Female 03/30/2021 5:24 PM CDT Sexual Orientation Not on file documented as of this encounter Plan of Treatment Not on file documented as of this encounter Visit Diagnoses Not on filedocumented in this encounter Care Teams Leveling Machine Operator Relationship Specialty Start Date End Date Unknown, Provider PCP - General 09/16/08 03/03/14 Timbo Esquivel MD [address] [facility] [address] [facility] [address] [place] [address] PCP - General 12/24/19 10/05/20 Ciro Ko MD [address] [place] [address] PCP - General Internal Medicine 10/06/20 02/15/21 Timbo Esquivel MD [address] [facility] 162 [facility] 204 [place] [address] PCP - General 02/16/21 02/23/21 Ciro Ko MD [address] [place] [address] PCP - General Internal Medicine 02/24/21 10/26/22 Donis Jackson DO [address] [place] [phone] PCP - General Family Medicine 10/27/22 12/11/23 Carrillo Martínez MD 2 [facility] 130 [place] [address] PCP - General Family Medicine 12/12/23 [place] [address] [address] [place] [address] Orthopedic Surgery 05/05/13 [place] [address] [place] [address] Physical Medicine and Rehabilitation 10/06/20 documented as of this encounter
--- OUTSIDE RECORDS SUMMARY | 2025-09-16 14:41 | XMS_ITS | Clinical Summary ---
Author Organization [facility] [employer] Address [address] [facility] [place] [address] Care Team Providers Care Cylinder Checker Name Role Phone Arik INGRAM MD, Apolinar Unavailable [phone] iVcente Butts MD Unavailable [phone] Carrillo Martínez MD Primary Care Provider [phone] Source Comments [facility] [employer],non-owned Affiliates and Associated Physician Practices is amultiple site organization consisting of ambulatory clinics and hospital sitesin [place], [place], [place] and [place]. This disclosure is being madepursuant to the Care Everywhere program and may not contain all information available regarding this patient. Last updated 18.[facility] [employer] Allergies No known active allergies Medications * Be aware that medications may not be up to date on this document. Alwaysverify current medications with the patient. vitamin C (ASCORBIC ACID) 1000 MG tablet Take 1 (one) tablet by mouth once daily Active [place]-3 Fatty Acids (FISH OIL) 1200 MG Take [...] ARTHRITIS. 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 Gender Identity Female 03/30/2021 5:24 PM CDT Sexual Orientation Not on file Occupation Industry Job Start Date Job End Date RETIRED Not on file Not on file Not on file Last Filed Vital Signs Vital Sign Reading Time Taken Comments Blood Pressure 126/72 03/26/2025 10:24 AM CDT Pulse 74 03/26/2025 10:24 AM CDT Temperature 36.1 C (96.9 F) 11/14/2024 11:55 AM DRIER Respiratory Rate 16 11/14/2024 12:25 PM DRIER Oxygen Saturation 97% 03/26/2025 10:24 AM CDT [...] this topic Medical Devices Implanted Type Area Hand Compositor Device Identifier Shelf Expiration Date Model / Serial / Lot Bsplt Glnd Cmprh 25 Mm Mini Shldr Tpr Ad Implanted:Qty: 1 on 12/29/2022 by Janiya Pollack MD at [facility] Prosthesis Right: Shoulder [employer] 12/11/2032 [id number] / / [id number] Cmpnt Glnd 36mm Std Glenosphere Clr Cd Implanted:Qty: 1 on 12/29/2022 by Janiya Pollack MD at [facility] Prosthesis Right: Shoulder [employer] 09/21/2032 [id number] / / [id number] Brng Hum 36mm Cmprh +3mm Shldr Vivacit-E Implanted:Qty: 1 on 12/29/2022 by Janiya Pollack MD at [facility] Prosthesis Right: Shoulder [employer] 04/13/2024 [id number] / / [id number] Screw 4.75mm 15mm 3.5mm Lck Fx Ang Hex Implanted:Qty: 1 on 12/29/2022 by Janiya Pollack MD at [facility] Screw Right: Shoulder [employer] 09/25/2032 [id number] / / [id number] Screw 4.75mm 15mm 3.5mm Lck Fx Ang Hex Implanted:Qty: 1 on 12/29/2022 by Janiya Pollack MD at [facility] Screw Right: Shoulder [employer] 05/05/2032 [id number] / / [id number] Screw 4.75mm 15mm 3.5mm Lck Fx Ang Hex Implanted:Qty: 1 on 12/29/2022 by Janiya Pollack MD at [facility] Screw Right: Shoulder [employer] 08/05/2032 [id number] / / [id number] Screw 4.75mm 30mm 3.5mm Lck Fx Ang Hex Implanted:Qty: 1 on 12/29/2022 by Janiya Pollack MD at [facility] Screw Right: Shoulder [employer] 06/26/2032 [id number] / / [id number] Screw 6.5mm 30mm 3.5mm Cntr Hex Shldr Implanted:Qty: 1 on 12/29/2022 by Janiya Pollack MD at [facility] Screw Right: Shoulder [employer] 08/19/2032 [id number] / / [id number] Tray Hum Cmprh +6mm Std Shldr Rvrs Implanted:Qty: 1 on 12/29/2022 by Janiya Pollack MD at [facility] Right: Shoulder [employer] 11/15/2032 [id number] / / [id number] Stem Hum W/Align Tpr 45deg 11mm X 140mm Implanted:Qty: 1 on 12/29/2022 by Janiya Pollack MD at [facility] Right: Shoulder [employer] 07/02/2032 [id number] / / [id number] Mtrx Tissue [employer] [facility] 2cc - [id number] Implanted:Qty: 1 on 11/14/2024 by Christen Hernandez DPM at [facility] Right: Foot [employer] 03/24/2029 [id number] / [id number] / Explanted Type Area Hand Compositor Device Identifier Shelf Expiration Date Model / Serial / Lot Pin Fx 9in 3.2mm Stnm Explanted:Qty: 1 on 12/29/2022 at [facility] [employer] 11/09/2032 [id number] / / [id number] [place] [address] [employer] MEDICARE [place] [id number] [place] [id number] * Guarantor: SHEA BAIRES Account Type Relation to Patient Date of Phone Billing Address Personal/Family Other [address] [place] [id number] [facility] MEDICARE ADV [facility] MANAGED MEDICARE ADV [facility] MANAGED MEDICARE ADV [facility] MANAGED MEDICARE ADV Advance Directives * Full Code (Latest Code Status on File) Date Activated Date Inactivated Comments 12/06/2015 4:37 PM 12/06/2015 6:36 PM Care Teams Cylinder Checker Relationship Specialty Start Date End Date Carrillo Martínez MD [address] [facility] [address] [place] [address] PCP - General Family Medicine 12/12/23 [place] [address] [address] [place] [address] Orthopedic Surgery 05/05/13 [place] [address] [place] [address] Physical Medicine and Rehabilitation 10/06/20
--- OUTSIDE RECORDS SUMMARY | 2025-09-16 14:41 | XMS_ITS | Encounter Summary ---
Author Organization [facility] Address [address] [place] [address] Care Team Providers Care Music Supervisor Name Role Phone Arik INGRAM MD, Apolinar Unavailable [phone] Vicente Butts MD Unavailable [phone] Donis Jackson DO Primary Care Provider [phone] Carrillo Martínez MD Primary Care Provider + [phone] Encounter Details Date Type Department Care Team (Late st Contact Info) Description 08/29/2023 Lab Requisition [facility] - DermPath Lab [address] [place] [address] Asael Garcia MD [address] [place] [address] Social History Tobacco Use Types Packs/Day Years Used Date Smoking Tobacco: Former Cigarettes Smokeless Tobacco: Never Alcohol Use Standard Drinks/Week Comments Yes 7 (1 standard drink = 0.6 oz pur e alcohol) Comments No Sex and Gender Information Value Date Recorded Sex Assigned at Not on file Legal Sex Female 6:39 AM 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 SKIN, right upper esparza: SQUAMOUS CELL CARCINOMA, WELL DIFFERENTIATED (C44.722) 3 1:01 PM [facility] DERMATOPATHOLOGY LABORATORY at 1301 DIAGNOSTIC ASSISTANT Clinical History BCCA vs SCCA Path# [id number] 3 1:01 PM [facility] DERMATOPATHOLOGY LABORATORY Gross Description Specimen A: Received is one formalin filled container labeled with the patient's name and designated right upper esparza. The specimen consists of a shave biopsy measuring 8x8x1 mm. Jar 0. 3 1:01 PM [facility] DERMATOPATHOLOGY LABORATORY Microscopic Description Specimen A. SKIN, right upper esparza: Arising in the epidermis and extending into the dermis there are irregularly shaped aggregates of keratinocytes showing evidence of premature cornification. 3 1:01 PM [facility] DERMATOPATHOLOGY LABORATORY Disclaimer An external and internal positive and negative controls are appropriate for the histochemical, immunohistochemical and immunofluorescence stain(s) in this case (if any), except where stated explicitly. The performance characteristics of the stain(s) cited in this report were developed and its performance characteristic determined by the Dermatopathology Laboratory at [facility], directed by Dr. Deirdre Plummer. These tests need not be, and therefore are not, approved by the [place] Food and Drug Administration. The tests are used for clinical purposes. Billing Codes Specimen Charges Stain Charges 52596 1 3 1:01 PM [facility] DERMATOPATHOLOGY LABORATORY Embedded Images 3 1:01 PM [facility] DERMATOPATHOLOGY LABORATORY Pathology/Cytolog y TISSUE SPECIMEN FROM SKIN / Unknown 08/27/2023 08/29/2023 8:44 AM DIAGNOSTIC ASSISTANT Asael Garcia MD LAB - PATHOLOGY/CYTOLOGY ORDER JACQUELINE Final Result DERMATOPATHOLOGY LABORATORY [facility] - Department of Dermatology [facility] Medicine [address] [place] [address], [address] [phone] documented in this encounter Visit Diagnoses Not on filedocumented in this encounter Care Teams Music Supervisor Relationship Specialty Start Date End Date Donis Jackson DO [address] [place] [address] PCP - General Family Medicine 10/27/22 12/11/23 Carrillo Martínez MD [address] [address] PCP - General Family Medicine 12/12/23 [place] [address] [address] [place] [address] Orthopedic Surgery 05/05/13 [place] [address] [place] [address] Physical Medicine and Rehabilitation 10/06/20 documented as of this encounter
--- OUTSIDE RECORDS SUMMARY | 2025-09-16 14:41 | XMS_ITS | Encounter Summary ---
Author Organization [facility] Address [address] [facility] [place] [address] Care Team Providers Care Maritime Pilot Name Role Phone Arik INGRAM MD, Apolinar Unavailable [phone] Vicente Butts MD Unavailable [phone] Timbo Esquivel MD Primary Care Provider [phone] Ciro Ko MD Primary Care Provider [phone] Donis Jackson DO Primary Care Provider [phone] Carrillo Martínez MD Primary Care Provider + [phone] Encounter Details Date Type Department Care Team (Late st Contact Info) Description 02/17/2021 Lab Requisition [facility] [address] [facility] [place] [address] Asael Garcia MD [address] [place] [address] Social History Tobacco Use Types Packs/Day Years Used Date Smoking Tobacco: Former Cigarettes Smokeless Tobacco: Never Alcohol Use Standard Drinks/Week Comments Yes 0 (1 standard drink = 0.6 oz pur e alcohol) SOCIALLY Comments No Sex and Gender Information Value Date Recorded Sex Assigned at Not on file 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 Path# [id number]. B: BCCA. Path# [id number]. 4:56 PM CDT DERMATOPATHOLOGY LABORATORY Gross Description Specimen A: Received is one formalin filled container labeled with the patient's name and designated left mid back. The specimen consists of a shave biopsy measuring 0z2u0mw. Jar 0. Specimen B: Received is one formalin filled container labeled with the patient's name and designated right mid back. The specimen consists of a shave biopsy measuring 4o4h1iq. Jar 0. 4:56 PM CDT DERMATOPATHOLOGY LABORATORY [...] characteristic determined by the Dermatopathology Laboratory at [facility], directed by Dr. Deirdre Plummer. These tests need not be, and therefore are not, approved by the [place] Food and Drug Administration. The tests are used for clinical purposes. Billing Codes Specimen Charges Stain Charges 12133 72235 1 1 4:56 PM CDT DERMATOPATHOLOGY LABORATORY Embedded Images 4:56 PM CDT DERMATOPATHOLOGY LABORATORY Pathology/Cytology TISSUE SPECIMEN FROM SKIN / Unknown 02/15/2021 3:33 AM CDT 02/17/2021 7:37 AM CDT Miscellaneous samples (specimen) TISSUE SPECIMEN FROM SKIN / Unknown 02/15/2021 3:33 AM CDT 02/17/2021 7:37 AM CDT us Asael Garcia MD LAB - PATHOLOGY/CYTOLOGY ORDER JACQUELINE Final Result DERMATOPATHOLOGY LABORATORY [facility] - Department of Dermatology [facility] Medicine [address] [facility], 3rd Floor [address] [phone] documented in this encounter Visit Diagnoses Not on filedocumented in this encounter Care Teams Maritime Pilot Relationship Specialty Start Date End Date Timbo Esquivel MD [address] [place] [address] PCP - General 02/16/21 02/23/21 Ciro Ko MD [address] [place] [address] PCP - General Internal Medicine 02/24/21 10/26/22 Donis Jackson DO [address] [place] [address] PCP - General Family Medicine 10/27/22 12/11/23 Carrillo Martínez MD [address] [place] [address] PCP - General Family Medicine 12/12/23 [place] [address] [place] [address] Orthopedic Surgery 05/05/13 [place] [address] [place], [place] [phone] Physical Medicine and Rehabilitation 10/06/20 documented as of this encounter
--- OUTSIDE RECORDS SUMMARY | 2025-09-16 14:41 | XMS_ITS | Encounter Summary ---
Author Organization [facility] Address [address] [facility] [place] [address] Care Team Providers Care Financial Operations Consultant Name Role Phone Arik INGRAM MD, Apolinar Unavailable [phone] Timbo Esquivel MD Primary Care Provider [phone] Ciro Ko MD Primary Care Provider [phone] Vicente Butts MD Unavailable [phone] Timbo Esquivel MD Primary Care Provider [phone] Ciro Ko MD Primary Care Provider [phone] Donis Jackson DO Primary Care Provider [phone] Carrillo Martínez MD Primary Care Provider [phone] Encounter Details Date Type Department Care Team (Late st Contact Info) Description 01/30/2020 Lab Requisition [facility] Care [facility] [address] [facility] [place] [phone] Asael Garcia MD [address] [place] [address] Social History Tobacco Use Types Packs/Day Years Used Date Smoking Tobacco: Former Cigarettes Alcohol Use Standard Drinks/Week Comments Yes 0 (1 standard drink = 0.6 oz pur e alcohol) SOCIALLY Comments No Sex and Gender Information Value Date Recorded Sex Assigned at Not on file Legal Sex Female 6:39 AM TEST CONSULTANT Gender Identity Female 03/30/2021 5:24 PM CDT [...] AM CDT) Case Report Dermatopathology Report Case: [id number] Authorizing Provider: Asael Garcai MD Collected: 01/30/2020 12:00 AM Ordering Location: [facility] Lab Received: 01/30/2020 02:19 PM Pathologist: [...] sup BCCA (multifocal). Check margins. Path # [id number]. 0 3:10 PM CDT DERMATOPATHOLOGY LABORATORY Gross Description Specimen A: Received is one formalin filled container labeled with the patient's name and designated mid back. The specimen consists of a non-oriented ellipse of skin measuring [id number]. The epidermal surface consists of a centrally [...] purposes. Billing Codes Specimen Charges Stain Charges 81305 1 0 3:10 PM CDT DERMATOPATHOLOGY LABORATORY Embedded Images 0 3:10 PM CDT DERMATOPATHOLOGY LABORATORY Pathology/Cytolog y TISSUE SPECIMEN FROM SKIN / Unknown 01/30/2020 01/30/2020 2:19 PM CDT Asael Garcia MD LAB - PATHOLOGY/CYTOLOGY ORDER JACQUELINE Final Result DERMATOPATHOLOGY LABORATORY [facility] - Department of Dermatology [facility] [facility] 5th Floor Lab [address] [phone] documented in this encounter Visit Diagnoses Not on filedocumented in this encounter Care Teams Financial Operations Consultant Relationship Specialty Start Date End Date Timbo Esquivel MD [address] [facility] [address] [facility] [address] [place] [address] PCP - General 12/24/19 10/05/20 Ciro Ko MD [address] [place] [phone] PCP - General Internal Medicine 10/06/20 02/15/21 Timbo Esquivel MD [address] [facility] [address] [facility] [address] [place] [phone] PCP - General 02/16/21 02/23/21 Ciro Ko MD [address] [place] [id number] PCP - General Internal Medicine 02/24/21 10/26/22 Donis Jackson DO [address] [place] [id number] PCP - General Family Medicine 10/27/22 12/11/23 Carrillo Martínez MD [address] [facility] [address] [place] [phone] PCP - General Family Medicine 12/12/23 [place] [address] [address] [place] [address] Orthopedic Surgery 05/05/13 [place] [address] [place] [address] Physical Medicine and Rehabilitation 10/06/20 documented as of this encounter
--- OUTSIDE RECORDS SUMMARY | 2025-09-16 14:41 | XMS_ITS ---
Author Organization [facility] Address [address] [facility] [place] [address] Care Team Providers Care [employer] Letter Carrier Name Role Phone Arik INGRAM MD, Apolinar Unavailable [phone] Vicente Butts MD Unavailable [phone] Carrillo Martínez MD Primary Care Provider Active [...]
[2025-09-16 14:45] VITALS: BP 139/94; PULSE 75; RESP 14; O2SAT 100
[2025-09-16 15:33] LABS: Add Urine Microscopic? NO; Appearance Urine Clear (Clear); Glucose Urine UA Negative (Negative); Leukocyte Esterase Ur Negative LEU/UL (Negative); Nitrate Urine Negative (Negative); Specific Grav Ur > 1.045 (1.001-1.035)
[2025-09-16 15:43] LABS: Thyroid Stimulating Hormone 2.220 uIU/mL (0.465-4.680)
[2025-09-16 16:22] VITALS: BP 143/87; PULSE 70; RESP 17; O2SAT 99
[2025-09-16] MEDS: BISACODYL 10 MG SUPPOSITORY RECTAL (17:34)
[2025-09-16] MEDS: LIDOCAINE 2% JELLY 5 ML TUBE 1 APPLIC MUCOUS MEM (17:34)
[2025-09-16 17:47] VITALS: BP 140/92; PULSE 74; RESP 15; O2SAT 100
== END 2025-09-16 17:48 | disposition home or self-care (01) ==
PROVIDERS: Emergency Provider Student in an Organized Health Care Education/Training Program; PCP Family Medicine
DX: K59.00 Constipation, unspecified (principal); K62.89 Other specified diseases of anus and rectum; E87.1 Hypo-osmolality and hyponatremia; I10 Essential (primary) hypertension; M06.9 Rheumatoid arthritis, unspecified; Z96.659 Presence of unspecified artificial knee joint; R93.3 Abnormal findings on diagnostic imaging of other parts of digestive tract; Z79.899 Other long term (current) drug therapy
CPT/HCPCS: 36415; 74177; 80053; 81003; 82248; 83605; 84443; 85025; 99284; A9270; J7040; Q9967